=== PATIENT | male | born 1945 | race Caucasian/White ===

== ENCOUNTER 2019-04-25 14:01 | Observation (INO) ==
--- NOTE | 2019-04-25 14:05 | Emergency Department Note ---
ED Disposition Clinical Impression: SIRS (systemic inflammatory response syndrome), UTI (urinary tract infection), Failure to thrive in adult, Osteoarthritis of right hip, Right inguinal hernia Disposition: Admitted As Inpatient Condition on Discharge: Serious Time of Disposition: 17:01 - Critical Care Critical Care Time: No Attestation: On , the high probability of a clinically significant, sudden or life threatening deterioration of the following system(s) required my full and direct attention, intervention and personal management. The time I documented below is in addition to time spent performing reported procedures but includes the following listed in this critical care notation. Medical Decision Making - Medical Records Medical records reviewed: Yes: I reviewed the patient's medical records. - Robert Inquiry Pt receiving controlled substance: No Vital Signs: 04/25/19 14:09 04/25/19 15:21 04/25/19 15:46 Temperature 102.1 F H Temperature Source Oral Pulse Rate [Left Radial] 87 82 81 Respiratory Rate 20 Blood Pressure [Right Arm] 158/81 H 128/81 120/82 Blood Pressure Mean [Right Arm] 106 96 94 Blood Pressure Position [Right Arm] Sitting 02 Sat by Pulse Oximetry 91 L 99 100 Oxygen Delivery Method Room Air 04/25/19 15:55 04/25/19 16:49 Temperature 99.4 F Temperature Source Oral Pulse Rate [Left Radial] 78 Respiratory Rate Blood Pressure [Right Arm] 142/81 H Blood Pressure Mean [Right Arm] 101 Blood Pressure Position [Right Arm] Sitting 02 Sat by Pulse Oximetry Oxygen Delivery Method - Lab Data Lab results reviewed: Yes: I reviewed the patient's lab results. Lab Results 04/25/19 14:00: Lactate 2.0 04/25/19 14:00: WBC 16.1 H, RBC 3.88 L, Hgb 12.1 L, Hct 35.7 L, MCV 91.8, MCH 31.1, MCHC 33.8, RDW 12.9, Plt Count 191, MPV 8.6, Neut % (Auto) 86.9 H, Lymph % (Auto) 5.1 L, [place] % (Auto) 7.8, Eos % (Auto) 0.1, Baso % (Auto) 0.1, Neut # (Auto) 14.0 H, Lymph # (Auto) 0.8, [place] # (Auto) 1.3 H, Eos # (Auto) 0.0, Baso # (Auto) 0.0, Total Counted 100, Neutrophils % (Manual) 79 H, Lymphocytes % (Manual) 9 L, Monocytes % (Manual) 12 H, Platelet Estimate Normal, RBC Morphology Normal 04/25/19 14:00: Sodium 143, Potassium 3.5, Chloride 102, Carbon Dioxide 30, Anion Gap 14.5, BUN 30 H, Creatinine 1.68 H, Estimated Creat Clear 40, Estimated GFR 40 L, Est GFR ( Amer) 49 L, Glucose 125 H, Calcium 9.1, Magnesium 2.1, Total Bilirubin 1.7 H, AST 55 H, ALT 32, Alkaline Phosphatase 71, Troponin I < 0.02, C-Reactive Protein 21.9 H, Total Protein 7.8, Albumin 3.6, Globulin 4.2 H, Albumin/Globulin Ratio 0.9 L, TSH 0.55 04/25/19 14:00: Urine Color Dk yellow, Urine Appearance Clear, Urine pH 5.5, Ur Specific [place] 1.025, Urine Protein 2+, Urine Glucose (UA) Negative, Urine Ketones Negative, Urine Blood 3+, Urine Nitrate Negative, Urine Bilirubin Negative, Urine Urobilinogen 1.0, Ur Leukocyte Esterase Negative, Urine RBC 10- 20, Urine WBC 5-10, Ur Squamous Epith Cells Occasional, Urine Bacteria 2+ A 04/25/19 14:00: Stool Occult Blood Negative Result diagrams: 04/25/19 14:00 04/25/19 14:00 Orders (Tests/Meds): ED MEDICATIONS Discontinued Medications Generic Name Dose Route Start Last Admin Trade Name James PRN Reason Stop Dose Admin Acetaminophen 1,000 mg 04/25/19 14:17 04/25/19 14:21 Tylenol 500mg Tablet PO 04/25/19 14:18 1,000 mg ONCE ONE Administration Sodium Chloride 1,000 mls @ 999 mls/hr 04/25/19 14:30 04/25/19 14:21 Sod Chlor 0.9% 1000ml Bag IV 04/25/19 15:30 999 mls/hr .Q1H1M BROCK Administration Piperacillin Sod/Tazobactam 50 mls @ 100 mls/hr 04/25/19 15:00 04/25/19 15:06 Sod 3.375 gm/ Sodium Chloride IV 04/25/19 15:29 100 mls/hr ONCE ONE Administration Protocol ORDERS Category Date Time Status CT abdomen pelvis wo con Stat Cat Scan 04/25/19 14:[address] chest wo con Stat Cat Scan 04/25/19 14:12 Taken Prealbumin Stat Lab 04/25/19 14:00 Received Troponin I Q3H Lab 04/25/19 17:15 Ordered Troponin I Q3H Lab 04/25/19 20:15 Ordered Blood Culture Stat Micro 04/25/19 14:00 Received Urine Culture(cathed specimen) Stat Micro 04/25/19 14:00 Received EKG Request [ECG Request by /Nse] Stat Y 04/25/19 14:11 Ordered - ECG Data Tracing #1 I reviewed this ECG and interpreted as documented below: Normal sinus rhythm with a ventricular rate of 84 bpm. ECG initial impression date: 04/25/19 ECG initial impression time: 15:45 ECG normal with no acute: arrhythmias, ischemia, conduction abnormalities, chamber hypertrophy Normal Sinus Rhythm: Yes - Physician Consults Physician Consulted: Dr. Toure for unassigned service Time: 16:00 Reason -: Admission Additional Consult: Dr. Garcia for general surgery Time: 16:15 Reason -: Surgical Eval/Care, Other (Right inguinal hernia) Additional Consult: Dr. Beltran for orthopedic surgery Time: 16:20 Reason -: Surgical Eval/Care, Other (Severe right hip pathology.) General Adult HPI - General Chief complaint: PAIN Stated complaint: Pain Time Seen by Provider: 04/25/19 14:10 Mode of Arrival: EMS - History of Present Illness HPI narrative: Severely cachectic, unwashed, 73-year-old male in very dirty clothing with extremely long fingernails and very extremely long toenails and extremely poor dentition with actively rotting teeth and complete loss of over half of his teeth presents via EMS due to complaints of pain without trauma in his right hip. Patient is also complaining of urinary retention. This patient is clearly unable to care for himself in his current home environment. Patient has an obvious abdominal wall deformity and also a large right inguinal hernia with bowel down into the scrotum. Onset (ago): unknown Location: pelvis, right Radiation: non-radiation Severity: severe Quality: aching Consistency: constant Relieving factors: none Exacerbating factors: movement Associated symptoms: malaise, weakness Treatments prior to arrival: none - Related Data Home Medications Medication Instructions Recorded Confirmed No Known Home Medications 04/25/19 04/25/19 Allergies Allergy/AdvReac Type Severity Reaction Status Date / Time MORPHINE Allergy Unknown Uncoded 04/22/17 14:40 [facility] History - Hepatitis A Screen Attestation statement:: This patient has been screened for Hepatitis A risk factors. I have reviewed the patient's past medical history: Yes ROS Obtained: Yes Systems reviewed as appropriate & no additional complaints - Constitutional Constitutional: Reports fatigue, Reports fever(s), Reports malaise, Reports weakness - Eyes Eyes: Reports system reviewed and no additional complaints, except as docu - ENT Ears, Nose, Mouth, and Throat: Reports system reviewed and no additional complai nts, except as docu - Cardiovascular Cardiovascular: Reports system reviewed and no additional complaints, except as docu - Respiratory Respiratory: Yes system reviewed and no additional complaints, except as docu - Gastrointestinal Gastrointestingal: Reports: abdominal pain - Genitourinary Male Genitourinary: Reports decreased urination, Reports urinary hesitancy - Musculoskeletal Musculoskeletal: Reports joint pain, Reports decreased muscle mass, Reports joint stiffness, Reports joint swelling, Reports limited range of motion - Integumentary/Breasts Skin/Breast: Reports system reviewed and no additional complaints, except as docu - Neurologic Neurologic: Reports system reviewed and no additional complaints, except as docu - Endocrine Endocrine: Reports system reviewed and no additional complaints, except as docu - Hematologic/Lymphatic Henatologic/Lymphatic: Reports system reviewed and no additional complaints, except as docu - Allergic/Immunologic Allergic/Immunologic: Reports system reviewed and no additional complaints, except as docu Physical Exam - General General appearance: alert, in no apparent distress - Head Head exam: atraumatic, normocephalic, normal inspection - Eye Eye exam: Present: normal appearance, PERRL, EOMI - ENT ENT exam: Present: normal exam, normal oropharynx, mucous membranes moist, normal external ear exam - Expanded ENT Exam Teeth exam: Present: dental caries, other (Over half of the teeth are gone the other half are actively rotting.) - Neck Neck exam: Present: normal inspection, full ROM, trachea midline. Absent: meningismus, lymphadenopathy - Chest Chest inspection: Present: normal inspection, symmetric chest wall rise. Absent: tenderness - Respiratory Respiratory exam: Present: normal lung sounds bilaterally. Absent: respiratory distress - Cardiovascular Cardiovascular exam: Present: regular rate, normal rhythm, normal heart sounds. Absent: JVD - Abdominal Exam Abdominal exam: Present: soft, normal bowel sounds. Absent: distention, tenderness, guarding - exam: Present: scrotal swelling (Large right inguinal hernia with bowel in the scrotum.) - Expanded Exam exam: Present: other (Large smooth prostate per digital exam, good rectal tone.) - Extremities Exam Extremities exam: Present: full ROM (In arms bilaterally), tenderness (Right hip upon movement), other (Stiff joints and very little range of motion to the lower extremities bilaterally.). Absent: calf tenderness - Back Exam Back exam: Present: normal inspection. Absent: tenderness - Neurological Exam Neurological exam: Present: alert, oriented X3, CN II-XII intact. Absent: motor sensory deficit - Psychiatric Psychiatric exam: Present: normal affect, normal mood - Skin Skin exam: Present: warm, dry, intact, normal color
[2019-04-25 14:18] LABS: Basophils % 0.1 % (0.1-2.0); Eosinophils % 0.1 % (0.1-12.0); Hematocrit 35.7 % (42.0-52.0); Hemoglobin 12.1 g/dL (14.1-18.0); Lymphocytes # 0.8 K/mm3 (0.7-4.5); Lymphocytes % 5.1 % (10-50); Mean Corpuscular HGB Conc 33.8 g/dL (31.8-35.4); Mean Corpuscular Volume 91.8 fl (80-94); Mean Platelet Volume 8.6 fl (7.4-10.4); Monocytes # 1.3 K/mm3 (0.1-1.0); Monocytes % 7.8 % (1.7-9.3); Neutrophils % 86.9 % (37.0-80.0); Platelet Count 191 K/mm3 (142-424); Red Blood Count 3.88 M/mm3 (4.60-6.20); Red Cell Distribution Width 12.9 % (11.5-17.5); White Blood Count 16.1 K/mm3 (4.8-10.8)
[2019-04-25 14:29] LABS: Lymphocytes % 9 % (10-50); Monocytes % 12 % (2-9); Neutrophils % 79 % (42-76); RBC Morphology Normal; Total Cells Counted 100
[2019-04-25 14:36] LABS: Alanine Aminotransferase 32 U/L (12-78); Albumin Level 3.6 gm/dL (3.4-5.0); Albumin/Globulin Ratio 0.9 (1.1-1.8); Alkaline Phosphatase 71 U/L (46-116); Anion Gap 14.5 mEq/L (5-15); Aspartate Amino Transferase 55 U/L (15-37); Bilirubin,Total 1.7 mg/dL (0.2-1.0); Blood Urea Nitrogen 30 mg/dL (7-18); Calcium 9.1 mg/dL (8.5-10.1); Carbon Dioxide 30 mmol/L (21.0-32.0); Chloride 102 mmol/L (98-107); Globulin 4.2 gm/dl (1.3-3.2); Glucose 125 mg/dL (74-106); Sodium 143 mmol/L (136-145); Thyroid Stimulating Hormone 0.55 uIU/ml (0.358-3.740); Total Protein,Serum 7.8 gm/dL (6.4-8.2)
[2019-04-25 14:55] LABS: C-Reactive Protein 21.9 mg/dL (0.0-0.9)
[2019-04-26 06:07] LABS: Basophils % 0.1 % (0.1-2.0); Eosinophils % 0.1 % (0.1-12.0); Hematocrit 31.2 % (42.0-52.0); Lymphocytes # 0.4 K/mm3 (0.7-4.5); Lymphocytes % 3.5 % (10-50); Mean Corpuscular HGB Conc 33.5 g/dL (31.8-35.4); Mean Platelet Volume 8.9 fl (7.4-10.4); Monocytes # 0.5 K/mm3 (0.1-1.0); Neutrophils # 11.3 K/mm3 (1.8-7.8); Neutrophils % 92.3 % (37.0-80.0); Platelet Count 163 K/mm3 (142-424); Red Blood Count 3.32 M/mm3 (4.60-6.20); Red Cell Distribution Width 12.7 % (11.5-17.5); White Blood Count 12.3 K/mm3 (4.8-10.8)
[2019-04-26 06:11] LABS: Hemoglobin 10.6 g/dL (14.1-18.0)
[2019-04-26 06:20] LABS: INR 1.19 (0.9-1.1); Prothrombin Time 12.3 seconds (9.4-11.8)
[2019-04-26 06:47] LABS: Albumin Level 2.6 gm/dL (3.4-5.0); Albumin/Globulin Ratio 0.7 (1.1-1.8); Bilirubin,Total 1.4 mg/dL (0.2-1.0); Calcium 8.3 mg/dL (8.5-10.1); Chol/HDL Ratio 1.5 (1-3.5); Globulin 3.7 gm/dl (1.3-3.2); Total Protein,Serum 6.3 gm/dL (6.4-8.2)
--- NOTE | 2019-04-26 06:48 | Consult Report ---
*Admission Date: 04/25/19 *Reason for consult:: Inguinal hernia *History of present illness: Patient is a 73-year-old male who has reportedly not had any recent ongoing medical care who was brought to the emergency department yesterday evening with complaints of right hip pain. He has an apparent prior history of significant abdominal surgery at [facility] approximately 10 years ago. The exact details are unknown. However it appears as though he had been managed with an open abdomen ultimately with skin grafting. He was noted to have a large right inguinal hernia. Imaging revealed severe osteoarthritis of the right hip. He was admitted for inpatient management and surgical consultation was obtained for the hernia. Review of Systems - Review of Systems Review of systems:: pertinent systems reviewed and negative unless documented below - *Neurologic Reports weakness [facility] History Medical History: Denies:: Diabetes Mellitus Type 1 *Have you ever received a pneumonia vaccine?: No *Have you received a flu vaccine this season?: No - *Social History Educational Level: Completed Grade School Smoking Status: Current some day smoker Tobacco Type: pipe # Packs/Day (cigarettes): 0 Alcohol Intake: never *Occupational Status:: retired Household Members: family *Travel in the last 8 weeks: None Family Hx:: Cancer, Diabetes, Heart Attack Meds Home Medications Medication Instructions Recorded Confirmed Type No Known Home Medications 04/25/19 04/25/19 History Allergies Allergy/AdvReac Type Severity Reaction Status Date / Time MORPHINE Allergy Unknown Uncoded 04/22/17 14:40 Exam Vital signs and Labs for Last 24 Hours: Temp Pulse Resp BP Pulse Ox 98.5 F 73 19 125/69 99 04/26/19 04:00 04/26/19 04:00 04/26/19 04:00 04/26/19 04:00 04/26/19 04:00 Laboratory Results - last 24 hr 04/25/19 14:00: Lactate 2.0 04/25/19 14:00: WBC 16.1 H, RBC 3.88 L, Hgb 12.1 L, Hct 35.7 L, MCV 91.8, MCH 31.1, MCHC 33.8, RDW 12.9, Plt Count 191, MPV 8.6, Neut % (Auto) 86.9 H, Lymph % (Auto) 5.1 L, [place] % (Auto) 7.8, Eos % (Auto) 0.1, Baso % (Auto) 0.1, Neut # (Auto) 14.0 H, Lymph # (Auto) 0.8, [place] # (Auto) 1.3 H, Eos # (Auto) 0.0, Baso # (Auto) 0.0, Total Counted 100, Neutrophils % (Manual) 79 H, Lymphocytes % (Manual) 9 L, Monocytes % (Manual) 12 H, Platelet Estimate Normal, RBC Morphology Normal 04/25/19 14:00: Sodium 143, Potassium 3.5, Chloride 102, Carbon Dioxide 30, Ani on Gap 14.5, BUN 30 H, Creatinine 1.68 H, Estimated Creat Clear 40, Estimated GFR 40 L, Est GFR ( Amer) 49 L, Glucose 125 H, Calcium 9.1, Magnesium 2.1, Total Bilirubin 1.7 H, AST 55 H, ALT 32, Alkaline Phosphatase 71, Troponin I < 0.02, C-Reactive Protein 21.9 H, Total Protein 7.8, Albumin 3.6, Globulin 4.2 H, Albumin/Globulin Ratio 0.9 L, TSH 0.55 04/25/19 14:00: Urine Color Dk yellow, Urine Appearance Clear, Urine pH 5.5, Ur Specific [place] 1.025, Urine Protein 2+, Urine Glucose (UA) Negative, Urine Ketones Negative, Urine Blood 3+, Urine Nitrate Negative, Urine Bilirubin Negative, Urine Urobilinogen 1.0, Ur Leukocyte Esterase Negative, Urine RBC 10- 20, Urine WBC 5-10, Ur Squamous Epith Cells Occasional, Urine Bacteria 2+ A 04/25/19 14:00: Stool Occult Blood Negative 04/26/19 05:50: WBC 12.3 H, RBC 3.32 L, Hgb 10.6 L D, Hct 31.2 L, MCV 94.0, MCH 31.5 H, MCHC 33.5, RDW 12.7, Plt Count 163, MPV 8.9, Neut % (Auto) 92.3 H, Lymph % (Auto) 3.5 L, [place] % (Auto) 4.0, Eos % (Auto) 0.1, Baso % (Auto) 0.1, Neut # (Auto) 11.3 H, Lymph # (Auto) 0.4 L, [place] # (Auto) 0.5, Eos # (Auto) 0.0, Baso # (Auto) 0.0 04/26/19 05:50: PT 12.3 H, INR 1.19 H I & O for Last 24 hours: Intake & Output 04/23/19 04/24/19 04/25/19 04/26/19 11:59 11:59 11:59 11:59 Intake Total 1506 / 1506 Output Total 775 / 775 Balance 731 / 731 Weight 99 lb 5 oz Narrative: Focal examination of the abdomen reveals large chronic abdominal wall defect consistent with prior management of open abdomen with skin grafting. His abdomen is soft. There are visible loops of small bowel. Examination of the right inguinal area reveals a moderate sized right inguinal hernia. This is fully reducible albeit mildly uncomfortable to the patient. Results - Labs 04/26/19 05:50 04/25/19 14:00 Laboratory Results - last 24 hr 04/25/19 14:00: Lactate 2.0 04/25/19 14:00: WBC 16.1 H, RBC 3.88 L, Hgb 12.1 L, Hct 35.7 L, MCV 91.8, MCH 31.1, MCHC 33.8, RDW 12.9, Plt Count 191, MPV 8.6, Neut % (Auto) 86.9 H, Lymph % (Auto) 5.1 L, [place] % (Auto) 7.8, Eos % (Auto) 0.1, Baso % (Auto) 0.1, Neut # (Auto) 14.0 H, Lymph # (Auto) 0.8, [place] # (Auto) 1.3 H, Eos # (Auto) 0.0, Baso # (Auto) 0.0, Total Counted 100, Neutrophils % (Manual) 79 H, Lymphocytes % ( Manual) 9 L, Monocytes % (Manual) 12 H, Platelet Estimate Normal, RBC Morphology Normal 04/25/19 14:00: Sodium 143, Potassium 3.5, Chloride 102, Carbon Dioxide 30, Anion Gap 14.5, BUN 30 H, Creatinine 1.68 H, Estimated Creat Clear 40, Estimated GFR 40 L, Est GFR ( Amer) 49 L, Glucose 125 H, Calcium 9.1, Magnesium 2.1, Total Bilirubin 1.7 H, AST 55 H, ALT 32, Alkaline Phosphatase 71, Troponin I < 0.02, C-Reactive Protein 21.9 H, Total Protein 7.8, Albumin 3.6, Globulin 4.2 H, Albumin/Globulin Ratio 0.9 L, TSH 0.55 04/25/19 14:00: Urine Color Dk yellow, Urine Appearance Clear, Urine pH 5.5, Ur Specific [place] 1.025, Urine Protein 2+, Urine Glucose (UA) Negative, Urine Ketones Negative, Urine Blood 3+, Urine Nitrate Negative, Urine Bilirubin Negati ve, Urine Urobilinogen 1.0, Ur Leukocyte Esterase Negative, Urine RBC 10-20, Urine WBC 5-10, Ur Squamous Epith Cells Occasional, Urine Bacteria 2+ A 04/25/19 14:00: Stool Occult Blood Negative 04/26/19 05:50: WBC 12.3 H, RBC 3.32 L, Hgb 10.6 L D, Hct 31.2 L, MCV 94.0, MCH 31.5 H, MCHC 33.5, RDW 12.7, Plt Count 163, MPV 8.9, Neut % (Auto) 92.3 H, Lymph % (Auto) 3.5 L, [place] % (Auto) 4.0, Eos % (Auto) 0.1, Baso % (Auto) 0.1, Neut # (Auto) 11.3 H, Lymph # (Auto) 0.4 L, [place] # (Auto) 0.5, Eos # (Auto) 0.0, Baso # (Auto) 0.0 04/26/19 05:50: PT 12.3 H, INR 1.19 H Assessment and Plan - Assessment and plan all Dx Assessment and Plan for all problems:: Patient has a moderate reducible right inguinal hernia. No indications for urg ent surgical intervention at this time.
--- NOTE | 2019-04-26 07:25 | Pharmacy Consult Notes ---
[facility] Pharmacy VTE Monitoring - Patient Demographics Admission date: 04/25/19 Report Date: 04/26/19 Time: 07:25 Allergies/Adverse Reactions: Patient Allergies MORPHINE Allergy (Unknown, Uncoded 04/22/17 14:40) Height: 1.73 m Weight: 45.047 kg Patient Problems: Current Active Problems SIRS (systemic inflammatory response syndrome) (Acute) UTI (urinary tract infection) (Acute) Failure to thrive in adult (Acute) Osteoarthritis of right hip (Acute) Right inguinal hernia (Acute) - VTE Risk Labs: VTE Related Lab Results Hgb 10.6 g/dL (14.1-18.0) L D 04/26/19 05:50 Hct 31.2 % (42.0-52.0) L 04/26/19 05:50 Plt Count 163 K/mm3 (142-424) 04/26/19 05:50 PT 12.3 seconds (9.4-11.8) H 04/26/19 05:50 INR 1.19 (0.9-1.1) H 04/26/19 05:50 BUN 29 mg/dL (7-18) H 04/26/19 05:50 Creatinine 1.50 mg/dL (0.70-1.30) H 04/26/19 05:50 Estimated Creat Clear 28 mL/min (50-200) 04/26/19 05:50 Was VTE Risk Assessment Performed: Yes VTE Score: 5 VTE Risk Level: Low Risk Clinical Trial Participant: No - Prophylaxis VTE Prophylaxis Ordered?: Yes Types of VTE Prophylaxis: TEDS Knee High
--- NOTE | 2019-04-26 09:10 | History & Physical Report ---
*Admission Date: 04/25/19 *Chief complaint: Pain with ambulation, functional decline *History of present illness: 73-year-old white with essentially negative past medical history except for an episode of multiple abdominal surgeries at [facility] several years ago because "my intestine was wrapped around my gallbladder" who presented to the emergency department because he was unable to walk. In the emergency department he was found to be in extensive pain, and had not been to see medical attention since Dr. Munoz . He was found to have unkempt personal hygiene, oral hygiene and exceedingly long toenails that had not been trimmed in several years. Was also found to have a urinary tract infection, leukocytosis, acute kidney injury and right sided inguinal hernia. No medical records are available so comparison is somewhat difficult. Was also found to have impacted severe arthritis of the right hip consistent with avascular necrosis. Patient was admitted to hospital for further evaluation and multiple consultations from surgery specialties. [facility] History I have reviewed the patient's past medical history: Yes Medical History: Denies:: Diabetes Mellitus Type 1 *Have you ever received a pneumonia vaccine?: No *Have you received a flu vaccine this season?: No - *Social History Educational Level: Completed Grade School Smoking Status: Current some day smoker Tobacco Type: pipe # Packs/Day (cigarettes): 0 Alcohol Intake: never *Occupational Status:: retired Household Members: family *Travel in the last 8 weeks: None Family Hx:: Cancer, Diabetes, Heart Attack Review of Systems - Review of Systems Review of systems:: pertinent systems reviewed and negative unless documented below Patient reports no cardiac or pulmonary issues. No GI issues. Multiple orthopedic complaints, mostly in the right hip with inability to flex the hip. Otherwise denies pains or aches. Please see HPI for details - *Neurologic Reports weakness Meds Home Medications Medication Instructions Recorded Confirmed Type No Known Home Medications 04/25/19 04/25/19 History Allergies Allergy/AdvReac Type Severity Reaction Status Date / Time morphine Allergy Unknown Verified 04/26/19 07:43 allergy reaction Exam Vital signs and Labs for Last 24 Hours: Temp Pulse Resp BP Pulse Ox 98.3 F 76 18 113/56 L 100 04/26/19 07:56 04/26/19 07:56 04/26/19 07:56 04/26/19 07:56 04/26/19 07:56 Laboratory Results - last 24 hr 04/25/19 14:00: Lactate 2.0 04/25/19 14:00: WBC 16.1 H, RBC 3.88 L, Hgb 12.1 L, Hct 35.7 L, MCV 91.8, MCH 31.1, MCHC 33.8, RDW 12.9, Plt Count 191, MPV 8.6, Neut % (Auto) 86.9 H, Lymph % (Auto) 5.1 L, [place] % (Auto) 7.8, Eos % (Auto) 0.1, Baso % (Auto) 0.1, Neut # (Auto) 14.0 H, Lymph # (Auto) 0.8, [place] # (Auto) 1.3 H, Eos # (Auto) 0.0, Baso # (Auto) 0.0, Total Counted 100, Neutrophils % (Manual) 79 H, Lymphocytes % (Manual) 9 L, Monocytes % (Manual) 12 H, Platelet Estimate Normal, RBC Morphology Normal 04/25/19 14:00: Sodium 143, Potassium 3.5, Chloride 102, Carbon Dioxide 30, Anion Gap 14.5, BUN 30 H, Creatinine 1.68 H, Estimated Creat Clear 40, Estimated GFR 40 L, Est GFR ( Amer) 49 L, Glucose 125 H, Calcium 9.1, Magnesium 2.1, Total Bilirubin 1.7 H, AST 55 H, ALT 32, Alkaline Phosphatase 71, Troponin I < 0.02, C-Reactive Protein 21.9 H, Total Protein 7.8, Albumin 3.6, Globulin 4.2 H, Albumin/Globulin Ratio 0.9 L, TSH 0.55 04/25/19 14:00: Urine Color Dk yellow, Urine Appearance Clear, Urine pH 5.5, Ur Specific [place] 1.025, Urine Protein 2+, Urine Glucose (UA) Negative, Urine Ketones Negative, Urine Blood 3+, Urine Nitrate Negative, Urine Bilirubin Negative, Urine Urobilinogen 1.0, Ur Leukocyte Esterase Negative, Urine RBC 10-20, Urine WBC 5-10, Ur Squamous Epith Cells Occasional, Urine Bacteria 2+ A 04/25/19 14:00: Stool Occult Blood Negative 04/26/19 05:50: WBC 12.3 H, RBC 3.32 L, Hgb 10.6 L D, Hct 31.2 L, MCV 94.0, MCH 31.5 H, MCHC 33.5, RDW 12.7, Plt Count 163, MPV 8.9, Neut % (Auto) 92.3 H, Lymph % (Auto) 3.5 L, [place] % (Auto) 4.0, Eos % (Auto) 0.1, Baso % (Auto) 0.1, Neut # (Auto) 11.3 H, Lymph # (Auto) 0.4 L, [place] # (Auto) 0.5, Eos # (Auto) 0.0, Baso # (Auto) 0.0 04/26/19 05:50: PT 12.3 H, INR 1.19 H 04/26/19 05:50: Sodium 141, Potassium 4.0, Chloride 106, Carbon Dioxide 26, Anion Gap 13.0, BUN 29 H, Creatinine 1.50 H, Estimated Creat Clear 28, Estimated GFR 46 L, Est GFR ( Amer) 56 L, Glucose 122 H, Calcium 8.3 L, Phosphorus 2.0 L, Magnesium 1.9, Total Bilirubin 1.4 H, AST 43 H, ALT 26, Alkaline Phosphatase 51, Total Protein 6.3 L, Albumin 2.6 L D, Globulin 3.7 H, Albumin/Globulin Ratio 0.7 L, Triglycerides 31, Cholesterol 110 L, LDL Cholesterol 29, VLDL Cholesterol 6, HDL Cholesterol 75 H, Cholesterol/HDL Ratio 1.5 I & O for Last 24 hours: Intake & Output 04/23/19 04/24/19 04/25/19 04/26/19 11:59 11:59 11:59 11:59 Intake Total 1506 / 1506 Output Total 775 / 775 Balance 731 / 731 Weight 99 lb 5 oz Narrative: Patient is pleasant, talkative, seems to have a degree of intellectual disability Oropharynx clear but with multiple rotting teeth in various stages of disrepair. Patient appears cachectic with severe protein calorie malnutrition. Abdomen is scaphoid, significant scarring with evidence of abdominal wall defect from his multiple surgeries. Right inguinal hernia that is reducible noted. Adam catheter is draining dark yellow urine. Scrotal edema noted. Extremities are warm and well-perfused. Patient has significant pain with any movement of the right hip, but the hip is not foreshortened or rotated. Toenails are extremely long, his great toenails are approximately 5 inches long. Patient's upper extremities are dirty but otherwise unremarkable. Anterior lung kan are clear, heart rate regular. No JVD. Neurologic exam is nonfocal except for some global weakness Assessment and Plan (1) Severe protein-calorie malnutrition Current visit: Yes Status: Acute Category: Medical Code(s): E43 - Unspecified severe protein-calorie malnutrition Complicating factor of his admission. (2) Osteoarthritis of right hip Current visit: Yes Status: Acute Category: Medical Code(s): M16.11 - Unilateral primary osteoarthritis, right hip Significant disease in the hip, will probably need joint replacement or some type of evaluation. Orthopedic consult pending (3) Right inguinal hernia Current visit: Yes Status: Acute Category: Medical Code(s): K40.90 - Unilateral inguinal hernia, without obstruction or gangrene, not specified as recurrent Surgery consult reviewed and appreciated (4) UTI (urinary tract infection) Current visit: Yes Status: Acute Category: Medical Code(s): N39.0 - Urinary tract infection, site not specified Agree with antibiotics. Cultures pending
[2019-04-26 12:13] LABS: Lymphocytes % 3 % (10-50); Monocytes % 7 % (2-9); Neutrophils % 89 % (42-76); RBC Morphology Normal; Total Cells Counted 100
--- NOTE | 2019-04-26 13:58 | Consult Report ---
*Admission Date: 04/26/19 <Belen Cabrera 04/26/19 14:36> *Reason for consult:: Podiatry consult, nail trim <Belen Cabrera 04/26/19 14:36> *History of present illness: Patient is a 73-year-old male who has reportedly not had any recent ongoing medical care who was brought to the emergency department yesterday evening with complaints of right hip pain. The patient states he lives with his Brother that is 71 years old and that he is not . The patient presents today with onychogryphosis that is causing him pain due to the extensive length and some of the nails are incurvated inward and pressing into the skin under the nails. This is making wearing shoes very di fficult. Patient would like his nails trimmed today. <Belen Cabrera 04/26/19 14:36> Review of Systems - Constitutional Reports weight loss <Belen Cabrera 04/26/19 14:36> - *Cardiovascular Denies chest pain <Belen Cabrera 04/26/19 14:36> - *Respiratory Denies shortness of breath <Belen Cabrera 04/26/19 14:36> - *Musculoskeletal Comments: Patient states that his hip hurts today, states he has arthritis. <Belen Cabrera 04/26/19 14:36> - *Neurologic Reports restless legs, Reports weakness <Belen Cabrera 04/26/19 14:36> - Psychiatric Denies anxiety <Belen Cabrera 04/26/19 14:36> [facility] History I have reviewed the patient's past medical history: Yes <Belen Cabrera 04/26/19 14:36> Medical History: Denies:: Diabetes Mellitus Type 1 <Belen Cabrera 04/26/19 14:36> *Have you ever received a pneumonia vaccine?: No <Belen Cabrera 04/26/19 14:36> *Have you received a flu vaccine this season?: No <Belen Cabrera 04/26/19 14:36> - *Social History Educational Level: Completed Grade School <Belen Cabrera 04/26/19 14:36> Smoking Status: Current some day smoker <Belen Cabrera 04/26/19 14:36> Tobacco Type: pipe <Belen Cabrera 04/26/19 14:36> # Packs/Day (cigarettes): 0 <Belen Cabrera 04/26/19 14:36> Alcohol Intake: never <Belen Cabrera 04/26/19 14:36> *Occupational Status:: retired <Belen Cabrera 04/26/19 14:36> Household Members: family <Belen Cabrera 04/26/19 14:36> *Travel in the last 8 weeks: None <Belen Cabrera 04/26/19 14:36> Family Hx:: Cancer, Diabetes, Heart Attack <Belen Cabrera 04/26/19 14:36> Meds Home Medications Medication Instructions Recorded Confirmed Type No Known Home Medications 04/25/19 04/25/19 History <Manju Alford - 04/26/19 16:42> Allergies Allergy/AdvReac Type Severity Reaction Status Date / Time morphine Allergy Unknown Verified 04/26/19 07:43 allergy reaction <Manju Alford - 04/26/19 16:42> Exam Vital signs and Labs for Last 24 Hours: Temp Pulse Resp BP Pulse Ox 98.9 F 73 18 127/78 99 04/26/19 15:32 04/26/19 15:32 04/26/19 15:32 04/26/19 15:32 04/26/19 15:32 Laboratory Results - last 24 hr 04/26/19 05:50: WBC 12.3 H, RBC 3.32 L, Hgb 10.6 L D, Hct 31.2 L, MCV 94.0, MCH 31.5 H, MCHC 33.5, RDW 12.7, Plt Count 163, MPV 8.9, Neut % (Auto) 92.3 H, Lymph % (Auto) 3.5 L, [place] % (Auto) 4.0, Eos % (Auto) 0.1, Baso % (Auto) 0.1, Neut # (Auto) 11.3 H, Lymph # (Auto) 0.4 L, [place] # (Auto) 0.5, Eos # (Auto) 0.0, Baso # (Auto) 0.0, Total Counted 100, Neutrophils % (Manual) 89 H, Band Neutrophils % 1.0, Lymphocytes % (Manual) 3 L, Monocytes % (Manual) 7, Platelet Estimate Normal, RBC Morphology Normal 04/26/19 05:50: PT 12.3 H, INR 1.19 H 04/26/19 05:50: Sodium 141, Potassium 4.0, Chloride 106, Carbon Dioxide 26, Anion Gap 13.0, BUN 29 H, Creatinine 1.50 H, Estimated Creat Clear 28, Estimated GFR 46 L, Est GFR ( Amer) 56 L, Glucose 122 H, Calcium 8.3 L, Phosphorus 2.0 L, Magnesium 1.9, Total Bilirubin 1.4 H, AST 43 H, ALT 26, Alkaline Phosphatase 51, Total Protein 6.3 L, Albumin 2.6 L D, Globulin 3.7 H, Albumin/Globulin Ratio 0.7 L, Triglycerides 31, Cholesterol 110 L, LDL Cholesterol 29, VLDL Cholesterol 6, HDL Cholesterol 75 H, Cholesterol/HDL Ratio 1.5 <Manju Alford - 04/26/19 16:42> Temp Pulse Resp BP Pulse Ox 98.3 F 76 18 113/56 L 100 04/26/19 07:56 04/26/19 07:56 04/26/19 07:56 04/26/19 07:56 04/26/19 07:56 Laboratory Results - last 24 hr 04/25/19 14:00: Lactate 2.0 04/25/19 14:00: WBC 16.1 H, RBC 3.88 L, Hgb 12.1 L, Hct 35.7 L, MCV 91.8, MCH 31.1, MCHC 33.8, RDW 12.9, Plt Count 191, MPV 8.6, Neut % (Auto) 86.9 H, Lymph % (Auto) 5.1 L, [place] % (Auto) 7.8, Eos % (Auto) 0.1, Baso % (Auto) 0.1, Neut # (Auto) 14.0 H, Lymph # (Auto) 0.8, [place] # (Auto) 1.3 H, Eos # (Auto) 0.0, Baso # (Auto) 0.0, Total Counted 100, Neutrophils % (Manual) 79 H, Lymphocytes % (Manual) 9 L, Monocytes % (Manual) 12 H, Platelet Estimate Normal, RBC Morphology Normal 04/25/19 14:00: Sodium 143, Potassium 3.5, Chloride 102, Carbon Dioxide 30, Anion Gap 14.5, BUN 30 H, Creatinine 1.68 H, Estimated Creat Clear 40, Estimated GFR 40 L, Est GFR ( Amer) 49 L, Glucose 125 H, Calcium 9.1, Magnesium 2.1, Total Bilirubin 1.7 H, AST 55 H, ALT 32, Alkaline Phosphatase 71, Troponin I < 0.02, C-Reactive Protein 21.9 H, Total Protein 7.8, Albumin 3.6, Globulin 4.2 H, Albumin/Globulin Ratio 0.9 L, TSH 0.55 04/25/19 14:00: Urine Color Dk yellow, Urine Appearance Clear, Urine pH 5.5, Ur Specific [place] 1.025, Urine Protein 2+, Urine Glucose (UA) Negative, Urine Ketones Negative, Urine Blood 3+, Urine Nitrate Negative, Urine Bilirubin Negative, Urine Urobilinogen 1.0, Ur Leukocyte Esterase Negative, Urine RBC 10- 20, Urine WBC 5-10, Ur Squamous Epith Cells Occasional, Urine Bacteria 2+ A 04/25/19 14:00: Stool Occult Blood Negative 04/26/19 05:50: WBC 12.3 H, RBC 3.32 L, Hgb 10.6 L D, Hct 31.2 L, MCV 94.0, MCH 31.5 H, MCHC 33.5, RDW 12.7, Plt Count 163, MPV 8.9, Neut % (Auto) 92.3 H, Lymph % (Auto) 3.5 L, [place] % (Auto) 4.0, Eos % (Auto) 0.1, Baso % (Auto) 0.1, Neut # (Auto) 11.3 H, Lymph # (Auto) 0.4 L, [place] # (Auto) 0.5, Eos # (Auto) 0.0, Baso # (Auto) 0.0, Total Counted 100, Neutrophils % (Manual) 89 H, Band Neutrophils % 1.0, Lymphocytes % (Manual) 3 L, Monocytes % (Manual) 7, Platelet Estimate Normal, RBC Morphology Normal 04/26/19 05:50: PT 12.3 H, INR 1.19 H 04/26/19 05:50: Sodium 141, Potassium 4.0, Chloride 106, Carbon Dioxide 26, Anion Gap 13.0, BUN 29 H, Creatinine 1.50 H, Estimated Creat Clear 28, Estimated GFR 46 L, Est GFR ( Amer) 56 L, Glucose 122 H, Calcium 8.3 L, Phosphorus 2.0 L, Magnesium 1.9, Total Bilirubin 1.4 H, AST 43 H, ALT 26, Alkaline Phosphatase 51, Total Protein 6.3 L, Albumin 2.6 L D, Globulin 3.7 H, Album in/Globulin Ratio 0.7 L, Triglycerides 31, Cholesterol 110 L, LDL Cholesterol 29, VLDL Cholesterol 6, HDL Cholesterol 75 H, Cholesterol/HDL Ratio 1.5 <Belen Cabrera - 04/26/19 14:36> I & O for Last 24 hours: Intake & Output 04/24/19 04/25/19 04/26/19 04/27/19 11:59 11:59 11:59 11:59 Intake Total 1506 / 1506 Output Total 775 / 775 125 / 125 Balance 731 / 731 -125 / -125 Weight 99 lb 5 oz 99 lb 4.986 oz <Manju Alford - 04/26/19 16:42> Intake & Output 04/23/19 04/24/19 04/25/19 04/26/19 23:59 23:59 23:59 23:59 Intake Total 240 / 240 1266 / 1266 Output Total 550 / 550 225 / 225 Balance -310 / -310 1041 / 1041 Weight 96 lb 4 oz 99 lb 5 oz <Belen Cabrera - 04/26/19 14:36> Microbiology Reports for the Last 24 Hours: Microbiology 04/25/19 14:00 Urine,Catheterized Urine Culture - Preliminary NO GROWTH AFTER 24 HOURS <Manju Alford - 04/26/19 16:42> - *Routine HEENT Exam Head: Present: normocephalic <Belen Cabrera - 04/26/19 14:36> Eye: Present: PERRL <Belen Cabrera - 04/26/19 14:36> ENT: Present: mucous membranes moist <Belen Cabrera 04/26/19 14:36> - *Routine Neck Exam Present: full ROM. Absent: JVD <Belen Cabrera 04/26/19 14:36> - *Routine Respiratory Exam Absent: respiratory distress <Belen Cabrera 04/26/19 14:36> - *Routine Cardiovascular Exam Present: RRR <Belen Cabrera 04/26/19 14:36> - *Routine Abdominal Exam Absent: distended <Belen Cabrera 04/26/19 14:36> - *Routine Rectal Exam Patient deferred: visual exam <Belen Cabrera 04/26/19 14:36> - *Routine Extremities Exam Present: pulses intact, normal capillary refill. Absent: edema, calf tenderness <Belen Cabrera 04/26/19 14:36> - *Routine Skin Exam Present: dry, lesions <Belen Cabrera 04/26/19 14:36> Comments: Calluses noted to Right sub hallux, Right medial hallux, Left medial hallux, Left sub hallux, Left heel. Left 2nd tip of toe. <Belen Cabrera 04/26/19 14:36> - *Routine Neurological Exam Present: oriented X3, normal speech <Belen Cabrera 04/26/19 14:36> - Detailed Lower Extremity Exam Top foot image: 1 - Gryphosis on nails 1-5 to the right foot, thick and yellowish brown discolored nails. Nails crumbled when trimmed. 2 - Gryphosis on nails 1-5 to the left foot, thick and yellowish brown discolored nails. Nails crumbled when trimmed. The right great toenail had some skin under the nail and when trimmed it bled slightly. Neosporin ointment and a bandaid was then placed over the nail. <Belen Cabrera - 04/26/19 14:36> Bottom foot image: 1 - Callus to the right medial border,trimmed with a #15 blade, with no underlying ulcers. 2 - Callus to the right sub met ,trimmed with a #15 blade, with no underlying ulcers. 3 - Callus to the left medial border,trimmed with a #15 blade, with no underlying ulcers. 4 - Callus to the left sub met, trimmed with a #15 blade, with no underlying ulcers. 5 - Callus to the left heel ,trimmed with a #15 blade, with no underlying ulcers. 6 - Left 2nd toe had a callus removed after the nail was trimmed, it was pressing inward on his skin. Trimmed with a #15 blade, with no underlying ulcers. <Belen Cabrera - 04/26/19 14:36> Comments: Large dorsal medial eminence noted bilaterally. Valgus rotation noted to the toes. Decreased dorsiflexion bilaterally. No pain to the sesamoid apparatus and with stretch of the lateral capsule. Stable first metatarsal cuneiform joint range of motion, non-hypermobile first ray. 2-5th digits have rigid PIPJ contracture bilaterally. Adductovarus rotation noted to the fifth digit bilaterally. <Manju Alford - 04/26/19 16:41> Results - Labs Result Diagrams: 04/26/19 05:50 04/26/19 05:50 <Manju Alford - 04/26/19 16:42> Labs: Abnormal lab results 04/26/19 04/26/19 04/26/19 Range/Units 05:50 05:50 05:50 WBC 12.3 H (4.8-10.8) K/mm3 RBC 3.32 L (4.60-6.20) M/mm3 Hgb 10.6 L D (14.1-18.0) g/dL Hct 31.2 L (42.0-52.0) % MCH 31.5 H (27.0-31.2) pg Neut % (Auto) 92.3 H (37.0-80.0) % Lymph % (Auto) 3.5 L (10-50) % Neut # (Auto) 11.3 H (1.8-7.8) K/mm3 Lymph # (Auto) 0.4 L (0.7-4.5) K/mm3 Neutrophils % (Manual) 89 H (42-76) % Lymphocytes % (Manual) 3 L (10-50) % PT 12.3 H (9.4-11.8) seconds INR 1.19 H (0.9-1.1) BUN 29 H (7-18) mg/dL Creatinine 1.50 H (0.70-1.30) mg/dL Estimated GFR 46 L (>60) ml/min Est GFR ( Amer) 56 L (>60) ML/MIN Glucose 122 H (74-106) mg/dL Calcium 8.3 L (8.5-10.1) mg/dL Phosphorus 2.0 L (2.4-4.9) mg/dL Total Bilirubin 1.4 H (0.2-1.0) mg/dL AST 43 H (15-37) U/L Total Protein 6.3 L (6.4-8.2) gm/dL Albumin 2.6 L D (3.4-5.0) gm/dL Globulin 3.7 H (1.3-3.2) gm/dl Albumin/Globulin Ratio 0.7 L (1.1-1.8) Cholesterol 110 L (140-200) mg/dL HDL Cholesterol 75 H (27-67) mg/dL H & H 04/25/19 04/26/19 Range/Units 14:00 05:50 Hgb 12.1 L 10.6 L D (14.1-18.0) g/dL Hct 35.7 L 31.2 L (42.0-52.0) % Coagulation 04/26/19 Range/Units 05:50 INR 1.19 H (0.9-1.1) All other labs normal. <Manju Alford - 04/26/19 16:42> Abnormal lab results 04/25/19 04/25/19 04/25/19 Range/Units 14:00 14:00 14:00 WBC 16.1 H (4.8-10.8) K/mm3 RBC 3.88 L (4.60-6.20) M/mm3 Hgb 12.1 L (14.1-18.0) g/dL Hct 35.7 L (42.0-52.0) % MCH (27.0-31.2) pg Neut % (Auto) 86.9 H (37.0-80.0) % Lymph % (Auto) 5.1 L (10-50) % Neut # (Auto) 14.0 H (1.8-7.8) K/mm3 Lymph # (Auto) (0.7-4.5) K/mm3 [place] # (Auto) 1.3 H (0.1-1.0) K/mm3 Neutrophils % (Manual) 79 H (42-76) % Lymphocytes % (Manual) 9 L (10-50) % Monocytes % (Manual) 12 H (2-9) % PT (9.4-11.8) seconds INR (0.9-1.1) BUN 30 H (7-18) mg/dL Creatinine 1.68 H (0.70-1.30) mg/dL Estimated GFR 40 L (>60) ml/min Est GFR ( Amer) 49 L (>60) ML/MIN Glucose 125 H (74-106) mg/dL Calcium (8.5-10.1) mg/dL Phosphorus (2.4-4.9) mg/dL Total Bilirubin 1.7 H (0.2-1.0) mg/dL AST 55 H (15-37) U/L C-Reactive Protein 21.9 H (0.0-0.9) mg/dL Total Protein (6.4-8.2) gm/dL Albumin (3.4-5.0) gm/dL Globulin 4.2 H (1.3-3.2) gm/dl Albumin/Globulin Ratio 0.9 L (1.1-1.8) Cholesterol (140-200) mg/dL HDL Cholesterol (27-67) mg/dL Urine Bacteria 2+ A (None) /lpf 04/26/19 04/26/19 04/26/19 Range/Units 05:50 05:50 05:50 WBC 12.3 H (4.8-10.8) K/mm3 RBC 3.32 L (4.60-6.20) M/mm3 Hgb 10.6 L D (14.1-18.0) g/dL Hct 31.2 L (42.0-52.0) % MCH 31.5 H (27.0-31.2) pg Neut % (Auto) 92.3 H (37.0-80.0) % Lymph % (Auto) 3.5 L (10-50) % Neut # (Auto) 11.3 H (1.8-7.8) K/mm3 Lymph # (Auto) 0.4 L (0.7-4.5) K/mm3 [place] # (Auto) (0.1-1.0) K/mm3 Neutrophils % (Manual) 89 H (42-76) % Lymphocytes % (Manual) 3 L (10-50) % Monocytes % (Manual) (2-9) % PT 12.3 H (9.4-11.8) seconds INR 1.19 H (0.9-1.1) BUN 29 H (7-18) mg/dL Creatinine 1.50 H (0.70-1.30) mg/dL Estimated GFR 46 L (>60) ml/min Est GFR ( Amer) 56 L (>60) ML/MIN Glucose 122 H (74-106) mg/dL Calcium 8.3 L (8.5-10.1) mg/dL Phosphorus 2.0 L (2.4-4.9) mg/dL Total Bilirubin 1.4 H (0.2-1.0) mg/dL AST 43 H (15-37) U/L C-Reactive Protein (0.0-0.9) mg/dL Total Protein 6.3 L (6.4-8.2) gm/dL Albumin 2.6 L D (3.4-5.0) gm/dL Globulin 3.7 H (1.3-3.2) gm/dl Albumin/Globulin Ratio 0.7 L (1.1-1.8) Cholesterol 110 L (140-200) mg/dL HDL Cholesterol 75 H (27-67) mg/dL Urine Bacteria (None) /lpf H & H 04/25/19 04/26/19 Range/Units 14:00 05:50 Hgb 12.1 L 10.6 L D (14.1-18.0) g/dL Hct 35.7 L 31.2 L (42.0-52.0) % Coagulation 04/26/19 Range/Units 05:50 INR 1.19 H (0.9-1.1) All other labs normal. <Belen Cabrera - 04/26/19 14:36> Assessment and Plan (1) Severe protein-calorie malnutrition Current visit: Yes Status: Acute Category: Medical Code(s): E43 - Unspecified severe protein-calorie malnutrition (2) Osteoarthritis of right hip Current visit: Yes Status: Acute Category: Medical Code(s): M16.11 - Unilateral primary osteoarthritis, right hip (3) Right inguinal hernia Current visit: Yes Status: Acute Category: Medical Code(s): K40.90 - Unilateral inguinal hernia, without obstruction or gangrene, not specified as recurrent (4) UTI (urinary tract infection) Current visit: Yes Status: Acute Category: Medical Code(s): N39.0 - Urinary tract infection, site not specified <Belen Cabrera - 04/26/19 16:41> (1) Severe protein-calorie malnutrition Current visit: Yes Status: Acute Category: Medical Code(s): E43 - Unspecified severe protein-calorie malnutrition (2) Osteoarthritis of right hip Current visit: Yes Status: Acute Category: Medical Code(s): M16.11 - Unilateral primary osteoarthritis, right hip (3) Right inguinal hernia Current visit: Yes Status: Acute Category: Medical Code(s): K40.90 - Unilateral inguinal hernia, without obstruction or gangrene, not specified as recurrent (4) UTI (urinary tract infection) Current visit: Yes Status: Acute Category: Medical Code(s): N39.0 - Urinary tract infection, site not specified (5) Hallux abducto valgus, bilateral Current visit: Yes Status: Acute Category: Medical Code(s): M20.11 - Hallux valgus (acquired), right foot; M20.12 - Hallux valgus (acquired), left foot (6) Acquired hammertoes of both feet Current visit: Yes Status: Acute Category: Medical Code(s): M20.41 - Other hammer toe(s) (acquired), right foot; M20.42 - Other hammer toe(s) (acquired), left foot (7) Osteoarthritis of feet, bilateral Current visit: Yes Status: Acute Category: Medical Code(s): M19.071 - Primary osteoarthritis, right ankle and foot; M19.072 - Primary osteoarthritis, left ankle and foot (8) Callus of foot Current visit: Yes Status: Acute Category: Medical Code(s): L84 - Corns and callosities (9) Pre-ulcerative calluses Current visit: Yes Status: Acute Category: Medical Code(s): L84 - Corns and callosities <Manju Alford - 04/26/19 16:42> - Assessment and plan all Dx Assessment and Plan for all problems:: Onychogryphosis, calluses: Nails trimmed x 10s. Dremel used to smooth down thickened toenails. Calluses (x 6) were debrided with a number 15 blade without incident. No underlying ulcer. Recommend use of lotion daily. Recommend ``U felt offloading pads or mole skin as needed. Follow up in 3 months or as needed for routine foot care. HAV, HTs: We discussed conservative treatment options. Conservative treatment options include change shoe wear, prefab or custom molded inserts, strapping, taping and padding. Patient can also use topical NSAIDs, ice and elevate for pain and swelling. Discussed that patient would benefit form wider and deeper shoe wear to accommodate the deformity. Obtain WB 3 views b/l feet x-rays if symptoms noted or starts to have pain. Physician Attestation I have read the consult note that was documented by the [employer] and agree with the documentation. <Manju Alford - 04/26/19 16:41> Plan: 1. Nails trimmed and dremmel down to smooth. 2. Calluses debrided Cleaned with alcohol prep pads and then removed with a #15 blade, no underlying ulcers were noted. 3. Educated the patient about Routine foot care and routine nail trimming. 4. Patient can be put on our routine Foot care schedule to maintain his nails and callus care 3 months out. <Belen Cabrera - 04/26/19 14:36>
--- NOTE | 2019-04-26 17:08 | Consult Report ---
*Admission Date: 04/26/19 *History of present illness: Patient is a 73-year-old male who has reportedly not had any recent ongoing medical care who was brought to the emergency department yesterday evening with complaints of right hip pain. The patient states he lives with his Brother that is 71 years old and that he is not . The patient presents today with onychogryphosis that is causing him pain due to the extensive length and some of the nails are incurvated inward and pressing into the skin under the nails. This is making wearing shoes very difficult. Patient would like his nails trimmed today. 73-year-old white with essentially negative past medical history except for an episode of multiple abdominal surgeries at [facility] several years ago because "my intestine was wrapped around my gallbladder" who presented to the emergency department because he was unable to walk. In the emergency department he was found to be in extensive pain, and had not been to see medical attention since Dr. Munoz . He was found to have unkempt personal hygiene, oral hygiene and exceedingly long toenails that had not been trimmed in several years. Was also found to have a urinary tract infection, leukocytosis, acute kidney injury and right sided inguinal hernia. No medical records are available so comparison is somewhat difficult. Was also found to have impacted severe arthritis of the right hip consistent with avascular necrosis. Patient was admitted to hospital for further evaluation and multiple consultations from surgery specialties. Review of Systems - Review of Systems Review of systems:: pertinent systems reviewed and negative unless documented below - *Neurologic Reports restless legs, Reports weakness [facility] History I have reviewed the patient's past medical history: Yes Medical History: Denies:: Diabetes Mellitus Type 1 *Have you ever received a pneumonia vaccine?: No *Have you received a flu vaccine this season?: No - *Social History Educational Level: Completed Grade School Smoking Status: Current some day smoker Tobacco Type: pipe # Packs/Day (cigarettes): 0 Alcohol Intake: never *Occupational Status:: retired Household Members: family *Travel in the last 8 weeks: None Family Hx:: Cancer, Diabetes, Heart Attack Meds Home Medications Medication Instructions Recorded Confirmed Type No Known Home Medications 04/25/19 04/25/19 History Allergies Allergy/AdvReac Type Severity Reaction Status Date / Time morphine Allergy Unknown Verified 04/26/19 07:43 allergy reaction Exam Vital signs and Labs for Last 24 Hours: Temp Pulse Resp BP Pulse Ox 98.9 F 73 18 127/78 99 04/26/19 15:32 04/26/19 15:32 04/26/19 15:32 04/26/19 15:32 04/26/19 15:32 Laboratory Results - last 24 hr 04/26/19 05:50: WBC 12.3 H, RBC 3.32 L, Hgb 10.6 L D, Hct 31.2 L, MCV 94.0, MCH 31.5 H, MCHC 33.5, RDW 12.7, Plt Count 163, MPV 8.9, Neut % (Auto) 92.3 H, Lymph % (Auto) 3.5 L, [place] % (Auto) 4.0, Eos % (Auto) 0.1, Baso % (Auto) 0.1, Neut # (Auto) 11.3 H, Lymph # (Auto) 0.4 L, [place] # (Auto) 0.5, Eos # (Auto) 0.0, Baso # (Auto) 0.0, Total Counted 100, Neutrophils % (Manual) 89 H, Band Neutrophils % 1.0, Lymphocytes % (Manual) 3 L, Monocytes % (Manual) 7, Platelet Estimate Normal, RBC Morphology Normal 04/26/19 05:50: PT 12.3 H, INR 1.19 H 04/26/19 05:50: Sodium 141, Potassium 4.0, Chloride 106, Carbon Dioxide 26, Anion Gap 13.0, BUN 29 H, Creatinine 1.50 H, Estimated Creat Clear 28, Estimated GFR 46 L, Est GFR ( Amer) 56 L, Glucose 122 H, Calcium 8.3 L, Phosphorus 2.0 L, Magnesium 1.9, Total Bilirubin 1.4 H, AST 43 H, ALT 26, Alkaline Phosphatase 51, Total Protein 6.3 L, Albumin 2.6 L D, Globulin 3.7 H, Albumin/Globulin Ratio 0.7 L, Triglycerides 31, Cholesterol 110 L, LDL Cholesterol 29, VLDL Cholesterol 6, HDL Cholesterol 75 H, Cholesterol/HDL Ratio 1.5 I & O for Last 24 hours: Intake & Output 04/24/19 04/25/19 04/26/19 04/27/19 11:59 11:59 11:59 11:59 Intake Total 1506 / 1506 Output Total 775 / 775 125 / 125 Balance 731 / 731 -125 / -125 Weight 99 lb 5 oz 99 lb 4.986 oz Microbiology Reports for the Last 24 Hours: Microbiology 04/25/19 14:00 Urine,Catheterized Urine Culture - Preliminary NO GROWTH AFTER 24 HOURS - *Routine Extremities Exam Comments: Right hip: Skin: good condition, no rashes, scars or ulcerations present. Palpation/Inspection: There is shortening of the right lower extremity compared to the left side by about 2-3 cm. The right hip is in flexion and external rotation; tender over the hip joint anteriorly. Not tender over the ASIS, iliac crest, PSIS, greater trochanter and the ischial tuberosity. Range of motion: All the movements are severely limited and painful; hip is in 20 degrees of fixed flexion and further flexion possible up to 60 degrees; abduction and adduction is very limited with pain; rotations are completely absent Strength: good strength noted during examination. Neurovascular status: Grossly intact. Sensation is intact to light touch throughout. Dorsalis pedis and posterior tibialis pulses are 1+ bilaterally. Miscellaneous: No pedal edema noticed. Thigh and calf are soft and nontender. Homans sign is negative; clinically no evidence of DVT noted. On examination of the opposite hip, there is no tenderness. The movements of the left hip are full and pain-free. Examination of both knee joints is unremarkable. Diagnostic Imaging: X-rays of his pelvis AP view and the right hip AP and lateral views performed at [facility] were reviewed along with radiologist report. The x-rays are showing severe degenerative changes with significant destruction and collapse of the right femoral head with superior migration; periarticular osteophyte formation, subarticular sclerosis and cyst formation noted. These changes have progressed significantly compared to previous imaging. The left hip joint is relatively well-preserved. Results - Labs Result Diagrams: 04/26/19 05:50 04/26/19 05:50 Labs: Abnormal lab results 04/26/19 04/26/19 04/26/19 Range/Units 05:50 05:50 05:50 WBC 12.3 H (4.8-10.8) K/mm3 RBC 3.32 L (4.60-6.20) M/mm3 Hgb 10.6 L D (14.1-18.0) g/dL Hct 31.2 L (42.0-52.0) % MCH 31.5 H (27.0-31.2) pg Neut % (Auto) 92.3 H (37.0-80.0) % Lymph % (Auto) 3.5 L (10-50) % Neut # (Auto) 11.3 H (1.8-7.8) K/mm3 Lymph # (Auto) 0.4 L (0.7-4.5) K/mm3 Neutrophils % (Manual) 89 H (42-76) % Lymphocytes % (Manual) 3 L (10-50) % PT 12.3 H (9.4-11.8) seconds INR 1.19 H (0.9-1.1) BUN 29 H (7-18) mg/dL Creatinine 1.50 H (0.70-1.30) mg/dL Estimated GFR 46 L (>60) ml/min Est GFR ( Amer) 56 L (>60) ML/MIN Glucose 122 H (74-106) mg/dL Calcium 8.3 L (8.5-10.1) mg/dL Phosphorus 2.0 L (2.4-4.9) mg/dL Total Bilirubin 1.4 H (0.2-1.0) mg/dL AST 43 H (15-37) U/L Total Protein 6.3 L (6.4-8.2) gm/dL Albumin 2.6 L D (3.4-5.0) gm/dL Globulin 3.7 H (1.3-3.2) gm/dl Albumin/Globulin Ratio 0.7 L (1.1-1.8) Cholesterol 110 L (140-200) mg/dL HDL Cholesterol 75 H (27-67) mg/dL H & H 04/25/19 04/26/19 Range/Units 14:00 05:50 Hgb 12.1 L 10.6 L D (14.1-18.0) g/dL Hct 35.7 L 31.2 L (42.0-52.0) % Coagulation 04/26/19 Range/Units 05:50 INR 1.19 H (0.9-1.1) All other labs normal. Assessment and Plan (1) Severe protein-calorie malnutrition Current visit: Yes Status: Acute Category: Medical Code(s): E43 - Unspecified severe protein-calorie malnutrition (2) Osteoarthritis of right hip Current visit: Yes Status: Acute Category: Medical Code(s): M16.11 - Unilateral primary osteoarthritis, right hip I have reviewed the clinical and imaging findings with the patient. I have discussed the diagnosis, natural history and management options in detail including both nonsurgical and surgical. Following a detailed discussion, I have recommended conservative management including rest, activity modification, ice or heat as appropriate, use of a cane or other walking aids as appropriate, NSAIDs, range of motion and strengthening exercises, physical therapy and mobilization weightbearing as tolerated. We have also discussed the role of jose a alexandra in his management, which in his case would be a total hip arthroplasty. We have discussed regarding the surgery, expected outcomes and potential complications. I do not think patient's medical/general condition is appropriate for a major elective surgery like a total hip arthroplasty at [facility]. However, this can be considered at a later date when the patient's overall general condition improves and after appropriate clearances. All the questions were answered and the patient verbalized a good understanding. From an orthopedic standpoint patient can be discharged to be followed up in the office as needed. (3) Right inguinal hernia Current visit: Yes Status: Acute Category: Medical Code(s): K40.90 - Unilateral inguinal hernia, without obstruction or gangrene, not specified as recurrent (4) UTI (urinary tract infection) Current visit: Yes Status: Acute Category: Medical Code(s): N39.0 - Urinary tract infection, site not specified (5) Hallux abducto valgus, bilateral Current visit: Yes Status: Acute Category: Medical Code(s): M20.11 - Hallux valgus (acquired), right foot; M20.12 - Hallux valgus (acquired), left foot (6) Acquired hammertoes of both feet Current visit: Yes Status: Acute Category: Medical Code(s): M20.41 - Other hammer toe(s) (acquired), right foot; M20.42 - Other hammer toe(s) (acquired), left foot (7) Osteoarthritis of feet, bilateral Current visit: Yes Status: Acute Category: Medical Code(s): M19.071 - Primary osteoarthritis, right ankle and foot; M19.072 - Primary osteoarthritis, left ankle and foot (8) Callus of foot Current visit: Yes Status: Acute Category: Medical Code(s): L84 - Corns and callosities (9) Pre-ulcerative calluses Current visit: Yes Status: Acute Category: Medical Code(s): L84 - Corns and callosities
[2019-04-27 06:14] LABS: Anion Gap 11.5 mEq/L (5-15); Calcium 8.2 mg/dL (8.5-10.1)
[2019-04-27 06:55] LABS: Phosphorous 1.9 mg/dL (2.4-4.9)
--- NOTE | 2019-04-27 08:25 | Progress Note ---
Internal Medicine - PN: Subj *Date: 04/27/19 *Time: 08:18 Interval history: Mr. Powell did well overnight. Denies any fevers, shortness of breath, nausea, vomiting. Continues to have significant pain in the right hip however he is not requesting any pain medications. Tolerating diet well, ate half of his breakfast. Voiding independently after removal of Adam yesterday. Orthopedic saw patient yesterday and recommended conservative management for hip due to severity of degeneration and arthritis. PT saw patient, recommendations for "rehab placement at this time due to generalized weakness, but could return home if necessary with assistance." Exam Vital signs and Labs for Last 24 Hours: Temp Pulse Resp BP Pulse Ox 98.0 F 100 H 19 122/86 99 04/27/19 07:50 04/27/19 07:50 04/27/19 07:50 04/27/19 07:50 04/27/19 07:50 Laboratory Results - last 24 hr 04/26/19 05:50: Total Counted 100, Neutrophils % (Manual) 89 H, Band Neutrophils % 1.0, Lymphocytes % (Manual) 3 L, Monocytes % (Manual) 7, Platelet Estimate Normal, RBC Morphology Normal 04/27/19 05:55: Sodium 136, Potassium 4.5, Chloride 105, Carbon Dioxide 24, Anion Gap 11.5, BUN 27 H, Creatinine 1.33 H, Estimated Creat Clear 33, Estimated GFR 53 L, Est GFR ( Amer) 64, Glucose 96, Calcium 8.2 L, Phosphorus 1.9 L , Magnesium 1.8 I & O for Last 24 hours: Intake & Output 04/24/19 04/25/19 04/26/19 04/27/19 23:59 23:59 23:59 23:59 Intake Total 240 / 240 1266 / 1266 3042 / 3042 Output Total 550 / 550 350 / 350 400 / 400 Balance -310 / -310 916 / 916 2642 / 2642 Weight 43.658 kg 45.047 kg 46.975 kg Microbiology Reports for the Last 24 Hours: Microbiology 04/25/19 14:00 Urine,Catheterized Urine Culture - Preliminary NO GROWTH AFTER 24 HOURS Narrative: Patient is pleasant, talkative, seems to have a degree of intellectual disability, no acute distress on room air Oropharynx clear but with multiple rotting teeth in various stages of disrepair. Patient appears cachectic with severe protein calorie malnutrition. Abdomen is scaphoid, significant scarring with evidence of abdominal wall defect from his multiple surgeries. Extremities are warm and well-perfused. Patient has significant pain with any movement of the right hip, but the hip is not foreshortened or rotated. Toenails trimmed. Interval improvement in foot exam Patient's upper extremities are thin Anterior lung kan are clear, heart rate regular. No JVD. Neurologic exam is nonfocal except for some global weakness Assessment and Plan (1) Severe protein-calorie malnutrition Current visit: Yes Status: Acute Category: Medical Code(s): E43 - Unspecified severe protein-calorie malnutrition Patient at risk for refeeding syndrome. Will replace phosphorus today and monitor on labs tomorrow morning. (2) Osteoarthritis of right hip Current visit: Yes Status: Acute Category: Medical Code(s): M16.11 - Unilateral primary osteoarthritis, right hip (3) Right inguinal hernia Current visit: Yes Status: Acute Category: Medical Code(s): K40.90 - Unilateral inguinal hernia, without obstruction or gangrene, not specified as recurrent (4) UTI (urinary tract infection) Current visit: Yes Status: Acute Category: Medical Code(s): N39.0 - Urinary tract infection, site not specified (5) Hallux abducto valgus, bilateral Current visit: Yes Status: Acute Category: Medical Code(s): M20.11 - Hallux valgus (acquired), right foot; M20.12 - Hallux valgus (acquired), left foot (6) Acquired hammertoes of both feet Current visit: Yes Status: Acute Category: Medical Code(s): M20.41 - Other hammer toe(s) (acquired), right foot; M20.42 - Other hammer toe(s) (acquired), left foot (7) Osteoarthritis of feet, bilateral Current visit: Yes Status: Acute Category: Medical Code(s): M19.071 - Primary osteoarthritis, right ankle and foot; M19.072 - Primary osteoarthritis, left ankle and foot (8) Callus of foot Current visit: Yes Status: Acute Category: Medical Code(s): L84 - Corns and callosities (9) Pre-ulcerative calluses Current visit: Yes Status: Acute Category: Medical Code(s): L84 - Corns and callosities - Assessment and plan all Dx Assessment and Plan for all problems:: Cachectic 73-year-old male with severe osteoarthritis of right hip. Conservative management at this time. Will have physical therapy work with patient again today. Make sure patient has DME at home with plan for discharge home tomorrow with home health for physical therapy. Patient would benefit from outpatient follow-up to discuss total hip replacement in the future. Continues to require inpatient management.
--- NOTE | 2019-04-28 08:18 | Discharge Summary ---
General - General Admission date:: 04/25/19 Discharge date: 04/28/19 HPI HPI: 73-year-old white with essentially negative past medical history except for an episode of multiple abdominal surgeries at [facility] several years ago because "my intestine was wrapped around my gallbladder" who presented to the emergency department because he was unable to walk. In the emergency department he was found to be in extensive pain, and had not be en to see medical attention since Dr. Munoz . He was found to have unkempt personal hygiene, oral hygiene and exceedingly long toenails that had not been trimmed in several years. Was also found to have a urinary tract infection, leukocytosis, acute kidney injury and right sided inguinal hernia. No medical records are available so comparison is somewhat difficult. Was also found to have impacted severe arthritis of the right hip consistent with avascular necrosis. Patient was admitted to hospital for further evaluation and multiple consultations from surgery specialties. Hospital Course Hospital Course: Patient was admitted. Podiatry was consulted for toenail care and these were trimmed, buffed and polished with good cosmetic results and much improvement in the patient's symptoms. Orthopedics was consulted and felt that his hip was significantly afflicted with arthritis, and would need a total hip replacement and that the patient would be better served if he was nonambulatory to do this at a tertiary care center. Physical therapy was consulted, and with pain control with Tylenol patient was able to ambulate with a walker. He did well and his pain improved nicely and hip flexion also improved with some physical therapy. Surgery was consulted for his inguinal hernia, recommended nonoperative watchful waiting given his significant surgical history and lack of evidence of incarceration. Interestingly although he had evidence of UTI, cultures were negative. Patient improved with antibiotics, bowel and bladder movements were also unremarkable. Patient lives with a brother who has no children is also not , but apparently there are some nieces and nephews from other siblings who are involved with his care. They have not been present during MD rounds, but apparently they have told the nursing staff they are interested in long-term placement for this patient. He is clearly not interested. He wishes to be discharged home to live with his brother. As a result he will be discharged home today. We will send him a prescription for meloxicam, supplemented with Tylenol for his arthritis pain. He has had no physician for several years, I will make him an appointment in my office next week and if the family wishes him to be placed in a long-term care facility they can call these facilities. He does not meet skilled care criteria for Medicare to pay for any kind of admissions. Objective Vital signs: Temp Pulse Resp BP Pulse Ox 98.6 F 67 18 125/62 100 04/28/19 04:00 04/28/19 04:00 04/28/19 04:00 04/28/19 04:00 04/28/19 04:00 Narrative: Patient is awake. Alert. Oriented x2. A little fuzzy about the date. Wishes to go home. Oropharynx with poor dentition but otherwise moist, clear. Lung kan are clear, heart rate regular. Abdomen soft, previous abdominal scarring noted. Extremities show much improved foot hygiene. He has much better ability to flex his hip. He has no pain with lifting his knees off the bed as previously noted. Distal extremities warm and well-perfused. Neurologic exam is intact other than some global weakness. Results Labs on day of discharge: Preliminary micro results at discharge 04/25/19 14:00 Blood Culture - Preliminary Blood NO GROWTH AFTER 48 HOURS 04/25/19 14:00 Blood Culture - Preliminary Blood NO GROWTH AFTER 48 HOURS DS: Diagnosis - Discharge Diagnosis (1) Severe protein-calorie malnutrition Status: Acute (2) Osteoarthritis of right hip Status: Acute (3) Right inguinal hernia Status: Acute (4) UTI (urinary tract infection) Status: Acute (5) Hallux abducto valgus, bilateral Status: Acute (6) Acquired hammertoes of both feet Status: Acute (7) Osteoarthritis of feet, bilateral Status: Acute (8) Callus of foot Status: Acute (9) Pre-ulcerative calluses Status: Acute Discharge Plan - Patient Discharge Instructions ACTIVITY: Continue current activity, Ambulate as tolerated DIET: continue same diet Patient Instructions: Eating a Diet Moderate in Protein-Rich Foods, Nutritional Deficiency (Alternative Therapy), High-Calorie, High-Protein Diet, DI for Failure to Thrive, DI for Malnutrition - Older Adults - Follow up Plan Follow up with: Keisha Feliciano APRN [Nurse Practitioner] - 05/03/19 8:30 am Unknown provider or service follow up:: 04/28/19 08:19 Recommend home health evaluation for PT/OT/nursing care/nutritional evaluation Disposition: Home Health Service Home Medications: Home Medications Medication Instructions Recorded Confirmed Type No Known Home Medications 04/25/19 04/25/19 History Acetaminophen [Tylenol 500mg 500 mg PO TIDP PRN #90 tab 04/28/19 Rx tablet] Meloxicam 15 mg PO DAILY #30 tab 04/28/19 Rx levoFLOXacin [Levaquin 500mg 500 mg PO DAILY #7 tab 04/28/19 Rx tab] Prescriptions/Medication Reconciliation: New Meloxicam 15 mg PO DAILY #30 tab Acetaminophen [Tylenol 500mg tablet] 500 mg PO TIDP PRN #90 tab PRN Reason: Moderate Pain levoFLOXacin [Levaquin 500mg tab] 500 mg PO DAILY #7 tab No Action No Known Home Medications - Problem Reconciliation Problems Reviewed?: Yes
--- NOTE | 2019-05-02 14:37 | Electrocardiograph Report ---
APPROVED REPORT Exam: Resting ECG HR:82 bpm ECG Measurements Heart Rate 82 AXES MS 158 P 25 QRSd 74 QRS 19 QT 374 T13 QTc 436 <Conclusion> Demand pacemaker, interpretation is based on intrinsic rhythm Normal sinus rhythm with sinus arrhythmia Nonspecific T wave abnormality Abnormal ECG Electronically signed by : Juanjose Mcleod, 05/02/2019 14:37:39
== END 2019-04-28 11:03 | disposition home health service (06) ==
LOC: ER 14:01 → 2ND 14:01
PROVIDERS: ADMIT Internal Medicine Adolescent Medicine; ATTEND Internal Medicine Adolescent Medicine
CPT/HCPCS: 36415; 71250; 73502; 74176; 80048; 80053; 80061; 81001; 82272; 83605; 83735; 84100; 84134; 84443; 84484; 85007; 85025; 85610; 86140; 87040; 87086; 93005; 96365; 96367; 97116; 97162; 97530; 99285; G0328; G0378; J1956; J2543

== ENCOUNTER 2019-04-30 16:21 | Observation (INO) ==
[2019-04-30 16:37] LABS: Basophils % 0.3 % (0.1-2.0); Eosinophils # 0.4 K/mm3 (0.0-0.4); Eosinophils % 3.3 % (0.1-12.0); Hematocrit 35.6 % (42.0-52.0); Hemoglobin 11.3 g/dL (14.1-18.0); Lymphocytes # 1.4 K/mm3 (0.7-4.5); Lymphocytes % 13.3 % (10-50); Mean Corpuscular HGB Conc 31.7 g/dL (31.8-35.4); Mean Corpuscular Volume 94.6 fl (80-94); Mean Platelet Volume 7.6 fl (7.4-10.4); Monocytes # 0.8 K/mm3 (0.1-1.0); Monocytes % 7.6 % (1.7-9.3); Neutrophils # 8.2 K/mm3 (1.8-7.8); Neutrophils % 75.5 % (37.0-80.0); Platelet Count 361 K/mm3 (142-424); Red Blood Count 3.76 M/mm3 (4.60-6.20); Red Cell Distribution Width 13.7 % (11.5-17.5); White Blood Count 10.8 K/mm3 (4.8-10.8)
[2019-04-30 16:50] LABS: Albumin Level 2.8 gm/dL (3.4-5.0); Albumin/Globulin Ratio 0.7 (1.1-1.8); Anion Gap 13.5 mEq/L (5-15); Bilirubin,Total 0.6 mg/dL (0.2-1.0); C-Reactive Protein 9.6 mg/dL (0.0-0.9); Calcium 8.4 mg/dL (8.5-10.1); Globulin 4.3 gm/dl (1.3-3.2); Total Protein,Serum 7.1 gm/dL (6.4-8.2)
[2019-04-30 16:59] LABS: Erythrocyte Sedimentation Rate 127 mm/hr (0-20)
[2019-04-30 17:44] LABS: Microscopic, Urine URINE MICROSCOPIC (MICROSCOPIC)
[2019-04-30 17:45] LABS: Appearance,Urine CLEAR (Clear); Bilirubin,Urine Negative (Negative); Blood, Urine Negative (Negative); Color,Urine YELLOW (Yellow); Glucose,Urine (UA) Negative (Negative); Ketones,Urine Negative (Negative); Leukocyte Esterase,Urine Negative (Negative); Protein,Urine TRACE (Negative); Specific Gravity, Urine >= 1.030 (1.005-1.030)
--- NOTE | 2019-04-30 17:48 | Emergency Department Note ---
ED Disposition Clinical Impression: Back pain, Osteoarthritis of right hip Disposition: Home, Self-Care Condition on Discharge: Fair Instructions: DI for Low Back Pain, DI for Hip Pain, DI for Osteoarthritis Additional Instructions: Follow-up with your primary care provider on Friday for reevaluation. Return to the emergency department immediately if symptoms are worse. Referrals: Juanjose Mcleod MD [Primary Care Provider] - Time of Disposition: 17:52 - Critical Care Critical Care Time: No Attestation: On 04/30/19, the high probability of a clinically significant, sudden or life threatening deterioration of the following system(s) required my full and direct attention, intervention and personal management. The time I documented below is in addition to time spent performing reported procedures but includes the fol lowing listed in this critical care notation. Medical Decision Making - Medical Records Medical records reviewed: Yes: I reviewed the patient's medical records. - Robert Inquiry Pt receiving controlled substance: No Vital Signs: 04/30/19 16:22 Temperature 98.4 F Temperature Source Oral Pulse Rate [Right] 88 Respiratory Rate 18 Blood Pressure [Right Arm] 165/90 H Blood Pressure Mean [Right Arm] 115 02 Sat by Pulse Oximetry 98 - Lab Data Lab results reviewed: Yes: I reviewed the patient's lab results. Lab Results 04/30/19 16:25: WBC 10.8, RBC 3.76 L, Hgb 11.3 L, Hct 35.6 L, MCV 94.6 H, MCH 30.0, MCHC 31.7 L, RDW 13.7, Plt Count 361, MPV 7.6, Neut % (Auto) 75.5, Lymph % (Auto) 13.3, [place] % (Auto) 7.6, Eos % (Auto) 3.3, Baso % (Auto) 0.3, Neut # (Auto) 8.2 H, Lymph # (Auto) 1.4, [place] # (Auto) 0.8, Eos # (Auto) 0.4, Baso # (Auto) 0.0, ESR 127 H 04/30/19 16:25: Sodium 142, Potassium 3.5, Chloride 102, Carbon Dioxide 30, Anion Gap 13.5, BUN 18, Creatinine 1.07, Estimated Creat Clear 40, Estimated GFR 68, Est GFR ( Amer) 82, Glucose 173 H, Calcium 8.4 L, Total Bilirubin 0.6, AST 50 H, ALT 43, Alkaline Phosphatase 127 H, C-Reactive Protein 9.6 H, Total Protein 7.1, Albumin 2.8 L, Globulin 4.3 H, Albumin/Globulin Ratio 0.7 L Result diagrams: 04/30/19 16:25 04/30/19 16:25 Orders (Tests/Meds): ORDERS Category Date Time Status CT lumbar spine wo con Stat Cat Scan 04/30/19 16:29 Taken UA [Urinalysis and Microscopic] Stat Lab 04/30/19 17:40 Received - CT Data CT Scan: L-Spine Time Received: 17:[address] Reviewed: Yes: I have reviewed the patient's CT results, I have viewed the radiologist's interpretation Preliminary Findings: Abnormal (Degenerative changes.), No Fracture Seen General Adult HPI - General Chief complaint: Back Pain/Injury Stated complaint: pain Time Seen by Provider: 04/30/19 16:30 Mode of Arrival: EMS Limitations: No Limitations Description of Symptoms (Recalled from ER Triage Doc. by RN): Pt states he was discharged from 2nd floor on after being treated for a uti and arthitis. Pt states he has not filled any of his meds and continues to be have severe back pain from his arthritis. - History of Present Illness HPI narrative: 73-year-old male with chronic low back pain and right hip pain presents to the emergency department for pain. Patient denies any new injury or other symptoms. He has been unable to obtain his pain medications and will not be able to until tomorrow. Onset (ago): day(s) (2) Location: back Radiation: non-radiation Severity: moderate, severe Quality: aching Consistency: constant Relieving factors: none Exacerbating factors: none Associated symptoms: denies other symptoms Treatments prior to arrival: none - Related Data Home Medications Medication Instructions Recorded Confirmed No Known Home Medications 04/25/19 04/25/19 Previous Rx's Medication Instructions Recorded Acetaminophen [Tylenol 500mg 500 mg PO TIDP PRN #90 tab 04/28/19 tablet] Meloxicam 15 mg PO DAILY #30 tab 04/28/19 levoFLOXacin [Levaquin 500mg 500 mg PO DAILY #7 tab 04/28/19 tab] Allergies Allergy/AdvReac Type Severity Reaction Status Date / Time morphine Allergy Unknown Verified 04/26/19 07:43 allergy reaction [facility] History - Hepatitis A Screen Drug use history?: No High risk sexual behaviors?: No History of sexually transmitted infection?: No Currently employed?: No Childcare worker?: No Do you have indoor plumbing?: Yes Do you have electricity?: Yes Attestation statement:: This patient has been screened for Hepatitis A risk factors. I have reviewed the patient's past medical history: Yes Medical History: Denies:: Diabetes Mellitus Type 1 - Social History Smoking Status: Current some day smoker Tobacco Type: pipe # Packs/Day (cigarettes): 0 Alcohol Intake: never Occupational Status: retired Household Members: family Family Hx:: Cancer, Diabetes, Heart Attack ROS Obtained: Yes Systems reviewed as appropriate & no additional complaints - Constitutional Constitutional: Reports malaise - Eyes Eyes: Reports system reviewed and no additional complaints, except as docu - ENT Ears, Nose, Mouth, and Throat: Reports system reviewed and no additional complaints, except as docu - Cardiovascular Cardiovascular: Reports system reviewed and no additional complaints, except as docu - Respiratory Respiratory: Yes system reviewed and no additional complaints, except as docu - Gastrointestinal Gastrointestingal: Reports: system reviewed and no additional complaints, except as docu - Genitourinary Male Genitourinary: Reports system reviewed and no additional complaints, except as docu - Musculoskeletal Musculoskeletal: Reports joint pain (Right hip), Reports back pain (Low back pain) - Integumentary/Breasts Skin/Breast: Reports system reviewed and no additional complaints, except as docu - Neurologic Neurologic: Reports system reviewed and no additional complaints, except as docu - Endocrine Endocrine: Reports system reviewed and no additional complaints, except as docu - Hematologic/Lymphatic Henatologic/Lymphatic: Reports system reviewed and no additional complaints, except as docu - Allergic/Immunologic Allergic/Immunologic: Reports system reviewed and no additional complaints, except as docu Physical Exam - General General appearance: alert, in no apparent distress - Head Head exam: atraumatic, normocephalic, normal inspection - Eye Eye exam: Present: normal appearance, PERRL, EOMI - ENT ENT exam: Present: normal exam, normal oropharynx, mucous membranes moist, normal external ear exam - Neck Neck exam: Present: normal inspection, full ROM, trachea midline. Absent: meningismus, lymphadenopathy - Chest Chest inspection: Present: normal inspection, symmetric chest wall rise. Absent: tenderness - Respiratory Respiratory exam: Present: normal lung sounds bilaterally. Absent: respiratory distress - Cardiovascular Cardiovascular exam: Present: regular rate, normal rhythm. Absent: JVD - Abdominal Exam Abdominal exam: Present: soft, normal bowel sounds. Absent: distention, tenderness, guarding - Extremities Exam Extremities exam: Present: normal inspection, full ROM, normal capillary refill. Absent: calf tenderness - Back Exam Back exam: Present: normal inspection. Absent: tenderness - Neurological Exam Neurological exam: Present: alert, oriented X3, CN II-XII intact. Absent: motor sensory deficit - Psychiatric Psychiatric exam: Present: normal affect, normal mood - Skin Skin exam: Present: warm, dry, intact, normal color
[2019-04-30 17:52] LABS: WBC,Urine Occasional #/hpf (0-3)
[2019-04-30 17:53] LABS: Calcium Oxalate Crystals,Urine 2+ /lpf
[2019-05-01 06:56] LABS: Basophils % 0.4 % (0.1-2.0); Eosinophils # 0.4 K/mm3 (0.0-0.4); Eosinophils % 6.4 % (0.1-12.0); Lymphocytes # 1.1 K/mm3 (0.7-4.5); Lymphocytes % 17.7 % (10-50); Mean Corpuscular HGB Conc 30.8 g/dL (31.8-35.4); Mean Corpuscular Volume 93.9 fl (80-94); Mean Platelet Volume 7.6 fl (7.4-10.4); Monocytes # 0.6 K/mm3 (0.1-1.0); Monocytes % 8.9 % (1.7-9.3); Neutrophils # 4.3 K/mm3 (1.8-7.8); Neutrophils % 66.6 % (37.0-80.0); Platelet Count 314 K/mm3 (142-424); Red Cell Distribution Width 13.6 % (11.5-17.5); White Blood Count 6.4 K/mm3 (4.8-10.8)
[2019-05-01 06:59] LABS: Anion Gap 7.7 mEq/L (5-15); Calcium 8.2 mg/dL (8.5-10.1)
[2019-05-01 07:04] LABS: Hematocrit 31.4 % (42.0-52.0); Hemoglobin 9.7 g/dL (14.1-18.0); Red Blood Count 3.35 M/mm3 (4.60-6.20)
--- NOTE | 2019-05-01 11:25 | Pharmacy Consult Notes ---
[facility] Pharmacy VTE Monitoring - Patient Demographics Admission date: 04/30/19 Report Date: 05/01/19 Time: 11:24 Allergies/Adverse Reactions: Patient Allergies morphine Allergy (Verified 04/26/19 07:43) Unknown allergy reaction Height: 1.73 m Weight: 46.918 kg Patient Problems: Current Active Problems Osteoarthritis of right hip (Acute) Back pain (Acute) - VTE Risk Labs: VTE Related Lab Results Hgb 9.7 g/dL (14.1-18.0) L D 05/01/19 06:35 Hct 31.4 % (42.0-52.0) L 05/01/19 06:35 Plt Count 314 K/mm3 (142-424) 05/01/19 06:35 BUN 17 mg/dL (7-18) 05/01/19 06:35 Creatinine 0.96 mg/dL (0.70-1.30) 05/01/19 06:35 Estimated Creat Clear 44 mL/min (50-200) 05/01/19 06:35 VTE Score: 6 VTE Risk Level: Moderate Risk - Prophylaxis VTE Prophylaxis Ordered?: Yes Types of VTE Prophylaxis: TEDS Knee High Location of Applied Device: Bilateral Lower Extremeties - VTE Diagnosis Confirmed Treatment or plan recommended: Continue Current Treatment
--- NOTE | 2019-05-01 15:27 | History & Physical Report ---
*Admission Date: 04/30/19 *Chief complaint: pain, inability to care for self at home *History of present illness: Mr. Powell is a pleasant but debilitated 73-year-old white with essentially negative past medical history except for an episode of multiple abdominal surgeries at [facility] several years ago because "my intestine was wrapped around my gallbladder" who Re-presented to the emergency department because he was unable to walk. Of note he was admitted 2 days ago for same complaint, treated for UTI, deemed medically stable for discharge home and discharged home with a brother with whom he lives. During last admission patient stated that he felt comfortable going home. He was assessed by physical therapy and able to walk 30 to 50 feet using a walker. Was deemed appropriate to go home with assistance and states he lives with his brother "Toe". After getting home he states his brother was not able to help him very well and there was difficulty getting home health assistance at their house as they do not know their physical address nor have a phone at home. This information was not made clear at last admission. Additionally patient states he feels uncomfortable now and did not voice similar concerns prior to previous discharge. He continues to have pain with his right hip which is inoperable at our institution but he does not feel he strong enough for surgery nor does he want to consider surgery at this time. He is requesting to be placed in a fci as he puts it in his family is demanding that he be placed in a jail as well. Aside from extensive pain in the ER, he was found to have normal kidney and liver function. Does have some mild anemia, signs of inflammation, but no acute needs. From previous discharge: "Orthopedics was consulted and felt that his hip was significantly afflicted with arthritis, and would need a total hip replacement and that the patient would be better served if he was nonambulatory to do this at a tertiary care center. Physical therapy was consulted, and with pain control with Tylenol patient was able to ambulate with a walker. He did well and his pain improved nicely and hip flexion also improved with some physical therapy. Surgery was consulted for his inguinal hernia, recommended nonoperative watchful waiting given his significant surgical history and lack of evidence of incarceration. Patient improved with antibiotics, bowel and bladder movements were also unremarkable. Patient lives with a brother who has no children is also not , but apparently there are some nieces and nephews from other siblings who are involved with his care. They have not been present during MD rounds, but amol arently they have told the nursing staff they are interested in jail placement for this patient. He is clearly not interested. He wishes to be discharged home to live with his brother. As a result he will be discharged home with plan for follow-up appointment and pursuing long-term care placement in the outpatient setting. He does not meet skilled care criteria for Medicare to pay for any kind of admissions." Patient denies owning any property, is willing to pursue Medicaid, but does not feel comfortable being at home with his brother. [facility] History I have reviewed the patient's past medical history: Yes Medical History: Denies:: Diabetes Mellitus Type 1 *Have you ever received a pneumonia vaccine?: No *Have you received a flu vaccine this season?: No Other Surgeries: Yes: Hernia Repair - *Social History Educational Level: Completed Grade School Smoking Status: Current every day smoker Tobacco Type: pipe # Packs/Day (cigarettes): 1 Alcohol Intake: never *Occupational Status:: retired Household Members: family *Travel in the last 8 weeks: None Family Hx:: Cancer, Diabetes, Heart Attack Review of Systems - Review of Systems Review of systems:: pertinent systems reviewed and negative unless documented below Meds Home Medications Medication Instructions Recorded Confirmed Type Acetaminophen [Tylenol 500mg 500 mg PO TIDP PRN #90 tab 04/28/19 04/30/19 Rx tablet] Meloxicam 15 mg PO DAILY 04/30/19 04/30/19 History levoFLOXacin [Levaquin 500mg 500 mg PO DAILY 04/30/19 04/30/19 History tab] Allergies Allergy/AdvReac Type Severity Reaction Status Date / Time morphine Allergy Unknown Verified 04/26/19 07:43 allergy reaction Exam Vital signs and Labs for Last 24 Hours: Temp Pulse Resp BP Pulse Ox 98.3 F 74 18 150/86 H 98 05/01/19 12:00 05/01/19 12:00 05/01/19 12:00 05/01/19 12:00 05/01/19 12:00 Laboratory Results - last 24 hr 04/30/19 16:25: WBC 10.8, RBC 3.76 L, Hgb 11.3 L, Hct 35.6 L, MCV 94.6 H, MCH 30.0, MCHC 31.7 L, RDW 13.7, Plt Count 361, MPV 7.6, Neut % (Auto) 75.5, Lymph % (Auto) 13.3, [place] % (Auto) 7.6, Eos % (Auto) 3.3, Baso % (Auto) 0.3, Neut # (Auto) 8.2 H, Lymph # (Auto) 1.4, [place] # (Auto) 0.8, Eos # (Auto) 0.4, Baso # (Auto) 0.0, ESR 127 H 04/30/19 16:25: Sodium 142, Potassium 3.5, Chloride 102, Carbon Dioxide 30, Anion Gap 13.5, BUN 18, Creatinine 1.07, Estimated Creat Clear 40, Estimated GFR 68, Est GFR ( Amer) 82, Glucose 173 H, Calcium 8.4 L, Total Bilirubin 0.6, AST 50 H, ALT 43, Alkaline Phosphatase 127 H, C-Reactive Protein 9.6 H, Total Protein 7.1, Albumin 2.8 L, Globulin 4.3 H, Albumin/Globulin Ratio 0.7 L 04/30/19 17:40: Urine Color Yellow, Urine Appearance Clear, Urine pH 6.0, Ur Specific [place] >= 1.030, Urine Protein Trace, Urine Glucose (UA) Negative, Urine Ketones Negative, Urine Blood Negative, Urine Nitrate Negative, Urine Bilirubin Negative, Urine Urobilinogen 1.0, Ur Leukocyte Esterase Negative, Urine RBC None, Urine WBC Occasional, Ur Squamous Epith Cells 3-5, Calcium Ox alate Crystal 2+, Urine Bacteria None, Hyaline Casts 3-5, Coarse Granular Casts 3-5 05/01/19 06:35: Hemoglobin A1c 5.3 05/01/19 06:35: WBC 6.4 D, RBC 3.35 L, Hgb 9.7 L D, Hct 31.4 L, MCV 93.9, MCH 28.9, MCHC 30.8 L, RDW 13.6, Plt Count 314, MPV 7.6, Neut % (Auto) 66.6, Lymph % (Auto) 17.7, [place] % (Auto) 8.9, Eos % (Auto) 6.4, Baso % (Auto) 0.4, Neut # (Auto) 4.3, Lymph # (Auto) 1.1, [place] # (Auto) 0.6, Eos # (Auto) 0.4, Baso # (Auto) 0.0 05/01/19 06:35: Sodium 142, Potassium 3.7, Chloride 107, Carbon Dioxide 31, Anion Gap 7.7, BUN 17, Creatinine 0.96, Estimated Creat Clear 44, Estimated GFR 77, Est GFR ( Amer) 93, Glucose 78 D, Calcium 8.2 L I & O for Last 24 hours: Intake & Output 04/28/19 04/29/19 04/30/19 05/01/19 23:59 23:59 23:59 23:59 Intake Total 1268 / 1268 Output Total 250 / 250 Balance 1018 / 1018 Weight 45.926 kg 46.918 kg Narrative: Patient is pleasant, talkative, seems to have a degree of intellectual disability Oropharynx clear but with multiple rotting teeth in various stages of disrepair. Patient appears cachectic with severe protein calorie malnutrition, bitemporal wasting Abdomen is scaphoid, significant scarring with evidence of abdominal wall defect from his multiple surgeries. Right inguinal hernia that is reducible noted. Adam catheter is draining dark yellow urine. Scrotal edema noted. Extremities are warm and well-perfused. Patient has significant pain with any movement of the right hip, but the hip is not foreshortened or rotated. Anterior lung kan are clear, heart rate regular. No JVD. Neurologic exam is nonfocal except for some global weakness Assessment and Plan (1) Back pain Current visit: Yes Status: Acute Category: Medical Code(s): M54.9 - Dorsalgia, unspecified (2) Osteoarthritis of right hip Current visit: Yes Status: Acute Category: Medical Code(s): M16.11 - Unilateral primary osteoarthritis, right hip (3) Failure to thrive in adult Current visit: No Status: Acute Category: Medical Code(s): R62.7 - Adult failure to thrive (4) Pre-ulcerative calluses Current visit: No Status: Acute Category: Medical Code(s): L84 - Corns and callosities (5) Right inguinal hernia Current visit: No Status: Acute Category: Medical Code(s): K40.90 - Unilateral inguinal hernia, without obstruction or gangrene, not specified as recurrent (6) Severe protein-calorie malnutrition Current visit: No Status: Acute Category: Medical Code(s): E43 - Unspecified severe protein-calorie malnutrition - Assessment and plan all Dx Assessment and Plan for all problems:: 73-year-old male with cachexia, anemia likely secondary to nutritional deficiency, protein calorie malnutrition, and pain of right hip. Does not want surgery at this time. Requesting to be placed. No acute needs however not safe to go home. Admitted for pain management and to pursue placement with case management consult Friday morning. Will have physical therapy see patient and continue to work with him. Complete antibiotic course for previous UTI.
--- NOTE | 2019-05-02 14:14 | Progress Note ---
Internal Medicine - PN: Subj *Date: 05/02/19 *Time: 14:12 Interval history: 73-year-old with continued persistent pain of right hip. Patient severely debilitated and unable to care for himself at home. Awaiting physical therapy assessment in the morning to assist with placement needs. No acute medical needs at this time. Denies chest pain, shortness of breath, fever, nausea, vomiting. Tolerating regular diet. Exam Vital signs and Labs for Last 24 Hours: Temp Pulse Resp BP Pulse Ox 98.4 F 68 16 132/74 100 05/02/19 08:00 05/02/19 08:00 05/02/19 08:00 05/02/19 08:00 05/02/19 08:00 I & O for Last 24 hours: Intake & Output 04/29/19 04/30/19 05/01/19 05/02/19 23:59 23:59 23:59 23:59 Intake Total 1865 / 1865 791 / 791 Output Total 500 / 500 400 / 400 Balance 1365 / 1365 391 / 391 Weight 45.926 kg 46.918 kg 47.825 kg Narrative: No significant interval change in exam. Exam as follows: Patient is pleasant, talkative, seems to have a degree of intellectual disability Oropharynx clear but with multiple rotting teeth in various stages of disrepair. Patient appears cachectic with severe protein calorie malnutrition, bitemporal wasting Abdomen is scaphoid, significant scarring with evidence of abdominal wall defect from his multiple surgeries. Right inguinal hernia that is reducible noted. Adam catheter is draining dark yellow urine. Scrotal edema noted. Extremities are warm and well-perfused. Patient has significant pain with any movement of the right hip, but the hip is not foreshortened or rotated. Anterior lung kan are clear, heart rate regular. No JVD. Neurologic exam is nonfocal except for some global weakness Assessment and Plan (1) Back pain Current visit: Yes Status: Acute Category: Medical Code(s): M54.9 - Dorsalgia, unspecified (2) Osteoarthritis of right hip Current visit: Yes Status: Acute Category: Medical Code(s): M16.11 - Unilateral primary osteoarthritis, right hip (3) Failure to thrive in adult Current visit: No Status: Acute Category: Medical Code(s): R62.7 - Adult failure to thrive (4) Pre-ulcerative calluses Current visit: No Status: Acute Category: Medical Code(s): L84 - Corns and callosities (5) Right inguinal hernia Current visit: No Status: Acute Category: Medical Code(s): K40.90 - Unilateral inguinal hernia, without obstruction or gangrene, not specified as recurrent (6) Severe protein-calorie malnutrition Current visit: No Status: Acute Category: Medical Code(s): E43 - Unspecified severe protein-calorie malnutrition - Assessment and plan all Dx Assessment and Plan for all problems:: Continue to monitor overnight. Physical therapy to see patient tomorrow, placement recommendations pending. Case management consulted, will assist with referral for senior living long-term care.
--- NOTE | 2019-05-03 08:19 | Progress Note ---
Internal Medicine - PN: Subj *Date: 05/03/19 *Time: 08:18 Interval history: No changes overnight, awaiting placement Exam Vital signs and Labs for Last 24 Hours: Temp Pulse Resp BP Pulse Ox 98.9 F 67 21 137/77 98 05/03/19 04:00 05/03/19 04:00 05/03/19 04:00 05/03/19 04:00 05/03/19 04:00 I & O for Last 24 hours: Intake & Output 04/30/19 05/01/19 05/02/19 05/03/19 11:59 11:59 11:59 11:59 Intake Total 1118 / 1118 1538 / 1538 532 / 532 Output Total 250 / 250 650 / 650 600 / 600 Balance 868 / 868 888 / 888 -68 / -68 Weight 103 lb 7 oz 105 lb 6.984 oz 108 lb 2 oz Narrative: Heart rate regular, lungs clear, moving extremities well. No edema or clubbing. Assessment and Plan (1) Back pain Current visit: Yes Status: Acute Category: Medical Code(s): M54.9 - Dorsalgia, unspecified (2) Osteoarthritis of right hip Current visit: Yes Status: Acute Category: Medical Code(s): M16.11 - Unilateral primary osteoarthritis, right hip (3) Failure to thrive in adult Current visit: No Status: Acute Category: Medical Code(s): R62.7 - Adult failure to thrive (4) Pre-ulcerative calluses Current visit: No Status: Acute Category: Medical Code(s): L84 - Corns and callosities (5) Right inguinal hernia Current visit: No Status: Acute Category: Medical Code(s): K40.90 - Unilateral inguinal hernia, without obstruction or gangrene, not specified as recurrent (6) Severe protein-calorie malnutrition Current visit: No Status: Acute Category: Medical Code(s): E43 - Unspecified severe protein-calorie malnutrition - Assessment and plan all Dx Assessment and Plan for all problems:: No changes in plan, await placement with Medicaid bed usp
--- NOTE | 2019-05-03 12:40 | Discharge Summary ---
General - General Admission date:: 04/30/19 Discharge date: 05/03/19 HPI HPI: Mr. Powell is a pleasant but debilitated 73-year-old white with essentially negative past medical history except for an episode of multiple abdominal surgeries at [facility] several years ago because "my intestine was wrapped around my gallbladder" who Re-presented to the emergency department because he was unable to walk. Of note he was admitted 2 days ago for same complaint, treated for UTI, deemed medically stable for discharge home and discharged home with a brother with whom he lives. During last admission patient stated that he felt comfortable going home. He was assessed by physical therapy and able to walk 30 to 50 feet using a walker. Was deemed appropriate to go home with assistance and states he lives with his brother "Toe". After getting home he states his brother was not able to help him very well and there was difficulty getting home health assistance at their house as they do not know their physical address nor have a phone at home. This information was not made clear at last admission. Additionally patient states he feels uncomfortable now and did not voice similar concerns prior to previous discharge. He continues to have pain with his right hip which is inoperable at our institution but he does not feel he strong enough for surgery nor does he want to consider surgery at this time. He is requesting to be placed in a residential as he puts it in his family is demanding that he be placed in a [place] facility as well. Aside from extensive pain in the ER, he was found to have normal kidney and liver function. Does have some mild anemia, signs of inflammation, but no acute needs. From previous discharge: "Orthopedics was consulted and felt that his hip was significantly afflicted with arthritis, and would need a total hip replacement and that the patient would be better served if he was nonambulatory to do this at a tertiary care center. Physical therapy was consulted, and with pain control with Tylenol patient was able to ambulate with a walker. He did well and his pain improved nicely and hip flexion also improved with some physical therapy. Surgery was consulted for his inguinal hernia, recommended nonoperative watchful waiting given his significant surgical history and lack of evidence of incarceration. Patient improved with antibiotics, bowel and bladder movements were also unremarkable. Patient lives with a brother who has no children is also not , but apparently there are some nieces and nephews from other siblings who are involved with his care. They have not been present during MD rounds, but apparently they have told the nursing staff they are interested in [place] facility placement for this patient. He is clearly not interested. He wishes to be discharged home to live with his brother. As a result he will be discharged home with plan for follow-up appointment and pursuing long-term care placement in the outpatient setting. He does not meet skilled care criteria for Medicare to pay for any kind of admissions." Patient denies owning any property, is willing to pursue Medicaid, but does not feel comfortable being at home with his brother. Hospital Course Hospital Course: Patient was admitted, labs and other testing was essentially unchanged from prior admission. It was determined the patient would benefit, by his own request from long-term care placement, care management was able to find a bed for the patient at the [facility]. He is very minimally intellectually disabled but is able to understand the consequences of his decision and his own self-care needs. Patient did well throughout his hospital stay. He'll be transferred to the [facility] today. He will need regular diet, labs will include a CBC/BMP in one week. He will need PT/OT evaluation for walking and functional ability assessment tissues. Objective Vital signs: Temp Pulse Resp BP Pulse Ox 98.4 F 68 18 157/87 H 99 05/03/19 08:00 05/03/19 08:00 05/03/19 08:00 05/03/19 08:00 05/03/19 08:00 no acute distress, thin - *Routine HEENT Exam Head: Present: normocephalic Eye: Present: EOMI Comments: Absent teeth on top - *Routine Neck Exam Present: supple, JVD - Routine Chest/Breast/Axilla Exam Chest wall: Absent: tenderness Breast: Absent: tenderness - *Routine Respiratory Exam Present: CTA bilaterally. Absent: accessory muscle use - *Routine Cardiovascular Exam Present: RRR, Normal S1, Normal S2 - *Routine Abdominal Exam Present: soft, surgical scars. Absent: rebound - *Routine Extremities Exam Absent: cyanosis, clubbing, edema Comments: Pain with movement of hips, but o/w no changes -- better than prior admits DS: Diagnosis - Discharge Diagnosis (1) Back pain Status: Chronic (2) Osteoarthritis of right hip Status: Chronic (3) Failure to thrive in adult Status: Chronic (4) Pre-ulcerative calluses Status: Acute (5) Right inguinal hernia Status: Chronic (6) Severe protein-calorie malnutrition Status: Chronic Discharge Plan - Patient Discharge Instructions ACTIVITY: Continue current activity DIET: continue same diet Patient Instructions: Osteoarthritis, DI for Chronic Pain -- Adult - Follow up Plan Disposition: [facility] Home Medications: Home Medications Medication Instructions Recorded Confirmed Type Meloxicam 15 mg PO DAILY 04/30/19 04/30/19 History levoFLOXacin [Levaquin 500mg 500 mg PO DAILY 04/30/19 04/30/19 History tab] Acetaminophen [Tylenol 500mg 500 mg PO TID PRN 05/01/19 05/01/19 History tablet] Prescriptions/Medication Reconciliation: Continued Meloxicam 15 mg PO DAILY Acetaminophen [Tylenol 500mg tablet] 500 mg PO TID PRN PRN Reason: Moderate Pain Discontinued levoFLOXacin [Levaquin 500mg tab] 500 mg PO DAILY - Problem Reconciliation Problems Reviewed?: Yes
== END 2019-05-03 14:45 ==
LOC: 2ND 16:21 → ER 16:21 → 2ND 22:25
PROVIDERS: ADMIT Emergency Medicine; ATTEND Internal Medicine Adolescent Medicine
CPT/HCPCS: 72131; 80048; 80053; 81001; 83036; 85025; 85651; 86140; 96374; 97116; 97162; 99284; G0378

== ENCOUNTER 2022-01-29 10:31 | Inpatient (IN) | payer MEDICARE, MEDICAID, SELFPAY ==
--- NOTE | 2022-01-29 10:50 | PC.NURSE ---
PT arrived to the floor at this time
[2022-01-29 11:01] VITALS: BP 106/39; PULSE 72; RESP 16; TEMP 36.3; O2SAT 99; BMI 14.7
[2022-01-29 11:15] LABS: Influenza A, PCR Not Detected (NotDetected); Influenza B, PCR Not Detected (NotDetected)
--- NOTE | 2022-01-29 11:23 | XR_ITS ---
FINAL REPORT CLINICAL HISTORY: SOA, COVID + FINDINGS: The heart size is normal. Mild prominence of the thoracic aorta. CT may be considered to assess for aneurysm. Lungs are clear. There is no pleural effusion. There is no pneumothorax. The bony thorax is intact. IMPRESSION: No acute cardiopulmonary process. Recommend nonemergent CT follow-up to evaluate aortic enlargement. Reviewed, Interpreted and Dictated by William Zavala MD Transcribed by Layton Calderon Authenticated and [facility]
--- NOTE | 2022-01-29 11:58 | EXP.PHA.VTE ---
[facility] Pharmacy VTE Monitoring Patient Demographics Admission date: 01/29/22 Report Date: 01/29/22 Time: 11:59 Patient Allergies morphine Allergy (Verified 09/28/19 15:07) Unknown allergy reaction Height: 1.83 m Weight: 49.158 kg VTE Risk Clinical Trial Participant: No Prophylaxis VTE Prophylaxis Ordered?: Yes Types of VTE Prophylaxis: TEDS Knee High
[2022-01-29 12:00] VITALS: BP 119/53
[2022-01-29 12:03] LABS: Alanine Aminotransferase 32 U/L (12-78); Albumin Level 5.2 g/dl (3.5-5.0); Albumin/Globulin Ratio 1.2 (1.1-1.8); Alkaline Phosphatase 124 U/L (38-126); Anion Gap 30.5 mEq/L (5-15); Aspartate Amino Transferase 43 U/L (17-59); Bilirubin,Total 0.4 mg/dl (0.2-1.3); Calcium 8.9 mg/dl (8.4-10.2); Carbon Dioxide 15 mmol/L (22.0-30.0); Chloride 110 mmol/L (98-107); Creatinine Clearance Estimated 5 mL/min (50-200); Estimated Glomerular Filt Rate 6 ml/min (>60); GFR (African American) 7 ML/MIN (>60); Globulin 4.5 g/dL (1.3-3.2); Glucose 134 mg/dl (74-100); Potassium 4.5 mmoL/L (3.5-5.1); Total Protein,Serum 9.7 g/dl (6.3-8.2)
[2022-01-29 12:12] LABS: Coronavirus 19, PCR Detected (NotDetected)
[2022-01-29 12:12] LABS: Blood Urea Nitrogen 129 mg/dl (9-20); Sodium 151 mmol/L (136-145)
[2022-01-29 12:31] LABS: Basophils # 0.1 K/mm3 (0-0.2); Basophils % 0.4 % (0.1-2.0); Eosinophils % 0.1 % (0.1-12.0); Hematocrit 43.1 % (42.0-52.0); Hemoglobin 14.1 g/dL (14.1-18.0); Lymphocytes # 0.4 K/mm3 (0.7-4.5); Lymphocytes % 2.9 % (10-50); Mean Corpuscular HGB Conc 32.8 g/dL (31.8-35.4); Mean Corpuscular Hemoglobin 30.8 pg (27.0-31.2); Mean Corpuscular Volume 94.1 fl (80-94); Mean Platelet Volume 9.4 fl (7.4-10.4); Monocytes # 0.3 K/mm3 (0.1-1.0); Monocytes % 2.4 % (1.7-9.3); Neutrophils # 11.2 K/mm3 (1.8-7.8); Neutrophils % 94.1 % (37.0-80.0); Platelet Count 285 K/mm3 (142-424); Red Blood Count 4.58 M/mm3 (4.60-6.20); Red Cell Distribution Width 13.9 % (11.5-17.5); White Blood Count 11.9 K/mm3 (4.8-10.8)
[2022-01-29 12:33] LABS: MANUAL DIFFERENTIAL MANUAL DIFFERENTIAL (MANUAL DIFF)
[2022-01-29 12:40] LABS: D-Dimer 0.95 ug/mL (0.0-0.5)
[2022-01-29 12:41] LABS: Lymphocytes % 4 % (10-50); Monocytes % 5 % (2-9); Neutrophils % 91 % (42-76); Platelet Estimate Normal; RBC Morphology Normal; Total Cells Counted 100
--- NOTE | 2022-01-29 12:55 | PC.NURSE ---
1213 Notified Shara Mcdonnell APRN of critical sodium of 151, creatinine of 9.0 and bun 129. Shara Mcdonnell APRN stated she was going to adjust ivf orders.
--- NOTE | 2022-01-29 12:57 | ECG_ITS ---
APPROVED REPORT Exam: Resting ECG HR:75 bpm ECG Measurements Heart Rate 75 AXES IL 164 P 26 QRSd 90 QRS 27 QT 406 T 67 QTc 435 Conclusion SINUS RHYTHM NONSPECIFIC T-WAVE ABNORMALITY BORDERLINE ECG UNCONFIRMED REPORT Electronically signed by : Juanjose Mcleod MD 01/31/2022 15:59:33
[2022-01-29 13:02] VITALS: PULSE 74; PULSE 77; RESP 18; O2SAT 98
--- NOTE | 2022-01-29 13:36 | EXP.HP ---
History of Present Illness *Admission Date: 01/29/22 *Reason for visit:: weakness, N/V/D, COVID-19 *History of present illness: 76 year old male with history of dementia, HTN, OA, physical debility, severe protein calorie malnutrition and GERD who with diagnosed with COVID-19 on 01/22 presented to PCP office with increased weakness, poor PO intake, worsening confusion and N/V/D for the last week. In office he was found to be hypotensive and hypoxic. Patient direct admitted for IV abx and further evaluation. Labs BUN/Creatinine 129/9. Aggressive IV hydration was initiated. Of note- on admission to [facility] in 2019 patient signed a DNR. At this time there is some confusion about who his POA is and what his code status is at this time. [facility] Medical History (Updated 01/29/22 @ 13:52 by Keisha Feliciano APRN) COVID-19 Failure to thrive Osteoarthritis Surgical History H/O hernia repair Family History No significant family history Social History Smoking Status: Former smoker alcohol intake: never current occupational status: retired Travel in the last 8 weeks: None household members: family Review of Systems Review of Systems Review of systems:: pertinent systems reviewed and negative unless documented below Constitutional Constitutional: Reports body ache(s), Reports fatigue, Reports malaise and Reports weight loss *Respiratory Respiratory: Reports cough *Gastrointestinal Gastrointestinal: Reports as per HPI, Reports nausea and Reports vomiting *Neurologic Neurologic: Reports confusion Psychiatric Psychiatric: Reports confusion Endocrine Endocrine: Reports fatigue Meds Home Medications and Allergies Home Medications Medication Instructions Recorded Confirmed Type meloxicam 15 mg tablet 15 mg PO DAILY pain/inflammation 04/30/19 01/29/22 History acetaminophen 500 mg tablet 500 mg PO TID PRN Moderate Pain 05/01/19 05/01/19 History hydroxyzine HCl 10 mg tablet 10 mg PO QHS 09/28/19 09/28/19 History lorazepam 0.5 mg tablet 0.5 mg PO DAILY PRN 09/28/19 09/28/19 History mirtazapine 15 mg tablet (Remeron) 15 mg PO HS Depression 09/28/19 01/29/22 History omeprazole 20 mg capsule,delayed 20 mg PO DAILY acid reflux 01/29/22 01/29/22 History release New Prescriptions to Start Prescriptions: Allergies Allergy/AdvReac Type Severity Reaction Status Date / Time morphine Allergy Unknown Verified 09/28/19 15:07 allergy reaction Exam Data for Last 24 hours Vital signs and Labs for Last 24 Hours: Temp Pulse Resp BP Pulse Ox 97.4 F L 74 18 119/53 L 98 01/29/22 11:01 01/29/22 13:02 01/29/22 13:02 01/29/22 12:00 01/29/22 13:02 Laboratory Results - last 24 hr 01/29/22 10:51: SARS-CoV-2 (PCR) Detected A, Influenza A Untype (PCR) Not detected, Influenza Type B (PCR) Not detected 01/29/22 11:15: WBC 11.9 H, RBC 4.58 L, Hgb 14.1, Hct 43.1, MCV 94.1 H, MCH 30.8, MCHC 32.8, RDW 13.9, Plt Count 285, MPV 9.4, Neut % (Auto) 94.1 H, Lymph % (Auto) 2.9 L, [place] % (Auto) 2.4, Eos % (Auto) 0.1, Baso % (Auto) 0.4, Neut # (Auto) 11.2 H, Lymph # (Auto) 0.4 L, [place] # (Auto) 0.3, Eos # (Auto) 0.0, Baso # (Auto) 0.1, Total Counted 100, Neutrophils % (Manual) 91 H, Lymphocytes % (Manual) 4 L, Monocytes % (Manual) 5, Platelet Estimate Normal, RBC Morphology Normal 01/29/22 11:15: Sodium 151 H*, Potassium 4.5, Chloride 110 H, Carbon Dioxide 15 L, Anion Gap 30.5 H, BUN 129 H*, Creatinine 9.00 H, Estimated Creat Clear 5, Estimated GFR 6 L*, Est GFR ( Amer) 7 L*, Glucose 134 H, Calcium 8.9, Total Bilirubin 0.4, AST 43, ALT 32, Alkaline Phosphatase 124, Total Protein 9.7 H, Albumin 5.2 H, Globulin 4.5 H, Albumin/Globulin Ratio 1.2 01/29/22 11:53: D-Dimer 0.95 H I & O for Last 24 hours: Intake & Output 01/27/22 01/28/22 01/29/22 09
--- NOTE | 2022-01-29 14:48 | XR_ITS ---
FINAL REPORT CLINICAL HISTORY: hammertoes, callus, osteoarthritis FINDINGS: RIGHT FOOT Three views of the right foot demonstrate no acute fracture or dislocation. There is generalized osteopenia. There is mild calcaneal spurring. Hammertoe deformities of the 2nd through 5th digits limit visualization of the interphalangeal joints. There is mild osteoarthritic disease of the interphalangeal joints. The soft tissues are unremarkable. IMPRESSION: No acute bony abnormality. Hammertoe deformities of digits 2 through 5 with mild osteoarthritic disease of the interphalangeal joints. Reviewed, Interpreted and Dictated by William Zavala MD Transcribed by Janie Martin Authenticated and [facility]
--- NOTE | 2022-01-29 14:51 | XR_ITS ---
FINAL REPORT CLINICAL HISTORY: hammertoes, callus, osteoarthritis FINDINGS: LEFT FOOT Three views of the left foot demonstrate no acute fracture or dislocation. There is generalized osteopenia. There is mild calcaneal spurring. Hammertoe deformities of the 2nd through 5th digits limit visualization of the interphalangeal joints. There is mild osteoarthritic disease of the interphalangeal joints. The soft tissues are unremarkable. IMPRESSION: No acute bony abnormality. Hammertoe deformities of digits 2 through 5 with mild osteoarthritic disease of the interphalangeal joints. Reviewed, Interpreted and Dictated by William Zavala MD Transcribed by Janie Martin Authenticated and [facility]
--- NOTE | 2022-01-29 15:00 | PC.NURSE ---
Spoke with Prasanth Powell whom i was told was poa, he stated he didnt even know if pt had a poa after prior stating he was poa. Althoigh, living will was provided. Have attempted to call Pauline Lam x 3 times. Two times this am when pt arrived to floor @ 1045 and just now @ 1501. Pt a/o x 2. Podiatry consult ordered. Bed alarm in use for safety. Bp stable and sats 100% on RA. Toes are dirty and very long.
[2022-01-29 16:00] VITALS: BP 113/71; PULSE 64; RESP 20; TEMP 36.2; O2SAT 99
[2022-01-29 18:01] LABS: Chloride 113 mmol/L (98-107); Sodium 149 mmol/L (136-145)
[2022-01-29 18:02] LABS: Potassium 4.6 mmoL/L (3.5-5.1)
[2022-01-29 18:05] LABS: Anion Gap 24.6 mEq/L (5-15); Calcium 7.7 mg/dl (8.4-10.2); Carbon Dioxide 16 mmol/L (22.0-30.0); Creatinine Clearance Estimated 6 mL/min (50-200); Estimated Glomerular Filt Rate 8 ml/min (>60); GFR (African American) 9 ML/MIN (>60); Glucose 90 mg/dl (74-100)
[2022-01-29 18:07] LABS: Blood Urea Nitrogen 112 mg/dl (9-20)
--- NOTE | 2022-01-29 18:07 | PC.NURSE ---
Shara Mcdonnell APRN notified at this time of BUN of 112 and CREATININE of 7.0 @ 1806.
[2022-01-29 18:10] VITALS: PULSE 72; PULSE 80; O2SAT 98
--- NOTE | 2022-01-29 18:32 | EXP.ORTH.CON ---
Documented by User: Anamika Aguilera APRN 01/29/22 19:13 History of Present Illness *Admission Date: 01/29/22 *Reason for visit:: Weakness, N/v/D, COVID-19 *History of present illness: The patient is a 76 year old male with history of dementia, who was recently diagnosed with COVID-19 on 01/22/22, presented to PCP office with increased weakness, poor PO intake, worsening confusion and N/V/D for the last week. In office he was found to be hypotensive and hypoxic. Patient was directly admitted for IV abx and further evaluation. PCP team consulted podiatry for toenail trimming. We obtained b/l feet 3V x-ray to r/o underlying bony abnormalities prior to toenail trimming. B/l feet x-ray results reviewed by it revealed no acute bony abnormalities. Patient was resting in bed awake, non verbal. Toenails 1-[address] [facility] Medical History (Updated 01/29/22 @ 18:40 by Anamika Aguilera APRN) COVID-19 Failure to thrive Osteoarthritis Surgical History H/O hernia repair Family History No significant family history Social History Smoking Status: Former smoker alcohol intake: never current occupational status: retired Travel in the last 8 weeks: None household members: family Review of Systems *Neurologic Neurologic: Reports confusion Psychiatric Psychiatric: Reports confusion Meds Home Medications and Allergies Home Medications Medication Instructions Recorded Confirmed Type meloxicam 15 mg tablet 15 mg PO DAILY pain/inflammation 04/30/19 01/29/22 History acetaminophen 500 mg tablet 500 mg PO TID PRN Moderate Pain 05/01/19 05/01/19 History hydroxyzine HCl 10 mg tablet 10 mg PO QHS 09/28/19 09/28/19 History lorazepam 0.5 mg tablet 0.5 mg PO DAILY PRN 09/28/19 09/28/19 History mirtazapine 15 mg tablet (Remeron) 15 mg PO HS Depression 09/28/19 01/29/22 History omeprazole 20 mg capsule,delayed 20 mg PO DAILY acid reflux 01/29/22 01/29/22 History release New Prescriptions to Start Prescriptions: Allergies Allergy/AdvReac Type Severity Reaction Status Date / Time morphine Allergy Unknown Verified 09/28/19 15:07 allergy reaction Ortho Exam (Inpt) Vital signs and Labs for Last 24 Hours: Temp Pulse Resp BP Pulse Ox 97.2 F L 72 20 113/71 98 01/29/22 16:00 01/29/22 18:10 01/29/22 16:00 01/29/22 16:00 01/29/22 18:10 Laboratory Results - last 24 hr 01/29/22 10:51: SARS-CoV-2 (PCR) Detected A, Influenza A Untype (PCR) Not detected, Influenza Type B (PCR) Not detected 01/29/22 11:15: WBC 11.9 H, RBC 4.58 L, Hgb 14.1, Hct 43.1, MCV 94.1 H, MCH 30.8, MCHC 32.8, RDW 13.9, Plt Count 285, MPV 9.4, Neut % (Auto) 94.1 H, Lymph % (Auto) 2.9 L, [place] % (Auto) 2.4, Eos % (Auto) 0.1, Baso % (Auto) 0.4, Neut # (Auto) 11.2 H, Lymph # (Auto) 0.4 L, [place] # (Auto) 0.3, Eos # (Auto) 0.0, Baso # (Auto) 0.1, Total Counted 100, Neutrophils % (Manual) 91 H, Lymphocytes % (Manual) 4 L, Monocytes % (Manual) 5, Platelet Estimate Normal, RBC Morphology Normal 01/29/22 11:15: Sodium 151 H*, Potassium 4.5, Chloride 110 H, Carbon Dioxide 15 L, Anion Gap 30.5 H, BUN 129 H*, Creatinine 9.00 H, Estimated Creat Clear 5, Estimated GFR 6 L*, Est GFR ( Amer) 7 L*, Glucose 134 H, Calcium 8.9, Total Bilirubin 0.4, AST 43, ALT 32, Alkaline Phosphatase 124, Total Protein 9.7 H, Albumin 5.2 H, Globulin 4.5 H, Albumin/Globulin Ratio 1.2 01/29/22 11:53: D-Dimer 0.95 H 01/29/22 17:45: Sodium 149 H, Potassium 4.6, Chloride 113 H, Carbon Dioxide 16 L, Anion Gap 24.6 H, BUN 112 H*, Creatinine 7.00 H D, Estimated Creat Clear 6, Estimated GFR 8 L*, Est GFR ( Amer) 9 L* D, Glucose 90 D, Calcium 7.7 L I & O for Labs for Last 24 Hours: Intake & Output 01/26/22 01/27/22 01/28/22 01/29/22 23:59 23:59 23:59 23:59 Intake Total 2032 Balance
--- NOTE | 2022-01-29 19:23 | PC.NURSE ---
Received order for lovenox and pharmacy recommended heparin r/t renal function. Shara Mcdonnell APRN aware and jeff'd. Pt's toenails trimmed per podiatry. This RN did also shower pt. Pt refused oral care, stated his mouth was sore. Dental carries noted. VSS.
[2022-01-29 20:00] VITALS: BP 100/56; PULSE 71; RESP 20; TEMP 36.8; O2SAT 100
--- NOTE | 2022-01-29 20:02 | PC.WOUNDNOTE ---
Pt verbalized ok to take image, podiatry consulted.
[2022-01-30] VITALS (10 sets, daily range): BP systolic 96–113; BP diastolic 50–78; PULSE 56–87; RESP 16–17; TEMP 36.6–37.1; O2SAT 98–100; BMI 14.8
--- NOTE | 2022-01-30 05:03 | PC.NURSE ---
pt has rested well t/o the shift. ambulated to and from bathroom with assist X1 using walker. no report of pain or SOA. bed alarm is on and functioning. CB in reach.
[2022-01-30 07:02] LABS: Basophils % 0.3 % (0.1-2.0); Eosinophils # 0.1 K/mm3 (0.0-0.4); Eosinophils % 0.8 % (0.1-12.0); Lymphocytes # 0.9 K/mm3 (0.7-4.5); Lymphocytes % 14.3 % (10-50); Mean Corpuscular HGB Conc 33.6 g/dL (31.8-35.4); Mean Corpuscular Hemoglobin 31.3 pg (27.0-31.2); Mean Corpuscular Volume 93.1 fl (80-94); Mean Platelet Volume 9.9 fl (7.4-10.4); Monocytes # 0.4 K/mm3 (0.1-1.0); Monocytes % 6.2 % (1.7-9.3); Neutrophils % 78.4 % (37.0-80.0); Platelet Count 189 K/mm3 (142-424); Red Blood Count 3.43 M/mm3 (4.60-6.20); Red Cell Distribution Width 13.8 % (11.5-17.5); White Blood Count 6.4 K/mm3 (4.8-10.8)
[2022-01-30 07:03] LABS: Anion Gap 22.1 mEq/L (5-15); Carbon Dioxide 15 mmol/L (22.0-30.0); Chloride 116 mmol/L (98-107); Creatinine Clearance Estimated 8 mL/min (50-200); Estimated Glomerular Filt Rate 10 ml/min (>60); GFR (African American) 12 ML/MIN (>60); Glucose 74 mg/dl (74-100); Hemoglobin 10.8 g/dL (14.1-18.0); Potassium 4.1 mmoL/L (3.5-5.1); Sodium 149 mmol/L (136-145)
[2022-01-30 07:07] LABS: Blood Urea Nitrogen 105 mg/dl (9-20)
--- NOTE | 2022-01-30 08:15 | EXP.PN ---
Subjective *Date: 01/30/22 *Time: 08:29 Interval history: Patient is awake, alert, responsive. Complains that his mouth is sore and also that he is cold. Vital signs have been stable. Nurses report that he is much more alert. Exam Data for Last 24 hours Vital signs and Labs for Last 24 Hours: Temp Pulse Resp BP Pulse Ox 97.8 F 65 16 111/78 99 01/30/22 07:39 01/30/22 07:39 01/30/22 07:39 01/30/22 07:39 01/30/22 07:39 Laboratory Results - last 24 hr 01/29/22 10:51: SARS-CoV-2 (PCR) Detected A, Influenza A Untype (PCR) Not detected, Influenza Type B (PCR) Not detected 01/29/22 11:15: WBC 11.9 H, RBC 4.58 L, Hgb 14.1, Hct 43.1, MCV 94.1 H, MCH 30.8, MCHC 32.8, RDW 13.9, Plt Count 285, MPV 9.4, Neut % (Auto) 94.1 H, Lymph % (Auto) 2.9 L, [place] % (Auto) 2.4, Eos % (Auto) 0.1, Baso % (Auto) 0.4, Neut # (Auto) 11.2 H, Lymph # (Auto) 0.4 L, [place] # (Auto) 0.3, Eos # (Auto) 0.0, Baso # (Auto) 0.1, Total Counted 100, Neutrophils % (Manual) 91 H, Lymphocytes % (Manual) 4 L, Monocytes % (Manual) 5, Platelet Estimate Normal, RBC Morphology Normal 01/29/22 11:15: Sodium 151 H*, Potassium 4.5, Chloride 110 H, Carbon Dioxide 15 L, Anion Gap 30.5 H, BUN 129 H*, Creatinine 9.00 H, Estimated Creat Clear 5, Estimated GFR 6 L*, Est GFR ( Amer) 7 L*, Glucose 134 H, Calcium 8.9, Total Bilirubin 0.4, AST 43, ALT 32, Alkaline Phosphatase 124, Total Protein 9.7 H, Albumin 5.2 H, Globulin 4.5 H, Albumin/Globulin Ratio 1.2 01/29/22 11:53: D-Dimer 0.95 H 01/29/22 17:45: Sodium 149 H, Potassium 4.6, Chloride 113 H, Carbon Dioxide 16 L, Anion Gap 24.6 H, BUN 112 H*, Creatinine 7.00 H D, Estimated Creat Clear 6, Estimated GFR 8 L*, Est GFR ( Amer) 9 L* D, Glucose 90 D, Calcium 7.7 L 01/30/22 06:45: WBC 6.4 D, RBC 3.43 L D, Hgb 10.8 L D, Hct 32.0 L, MCV 93.1, MCH 31.3 H, MCHC 33.6, RDW 13.8, Plt Count 189 D, MPV 9.9, Neut % (Auto) 78.4, Lymph % (Auto) 14.3, [place] % (Auto) 6.2, Eos % (Auto) 0.8, Baso % (Auto) 0.3, Neut # (Auto) 5.0, Lymph # (Auto) 0.9, [place] # (Auto) 0.4, Eos # (Auto) 0.1, Baso # (Auto) 0.0 01/30/22 06:45: Sodium 149 H, Potassium 4.1, Chloride 116 H, Carbon Dioxide 15 L, Anion Gap 22.1 H, BUN 105 H*, Creatinine 5.60 H, Estimated Creat Clear 8, Estimated GFR 10 L*, Est GFR ( Amer) 12 L* D, Glucose 74, Calcium 8.0 L I & O for Last 24 hours: Intake & Output 01/27/22 01/28/22 01/29/22 01/30/22 11:59 11:59 11:59 11:59 Intake Total 2333 / 2333 Output Total 300 / 300 Balance 2032 Weight 108 lb 6 oz 110 lb Constitutional Constitutional: cachectic, chronically ill appearing and disheveled Comments: Alert, pleasant. Oriented x1. Very poor oral dentition with some thrush lesions. Heart rate regular. Lungs clear. Abdomen soft, no edema, skin turgor is improving. Foot exam per podiatry Assessment and Plan *Assessment and plan (1) ARF (acute renal failure): Status: Acute Category: Medical Code(s): N17.9 - Acute kidney failure, unspecified (2) Severe protein-calorie malnutrition: Status: Acute Category: Medical Code(s): E43 - Unspecified severe protein-calorie malnutrition (3) Dementia: Status: Acute Qualifiers: Dementia type: unspecified type Category: Medical Code(s): F03.90 - Unspecified dementia without behavioral disturbance (4) GERD (gastroesophageal reflux disease): Status: Acute Category: Medical Code(s): K21.9 - Gastro-esophageal reflux disease without esophagitis (5) COVID-19: Status: Acute Category: Medical Code(s): U07.1 - COVID-19 Plan Acute kidney injury is improving. Continue low-dose IV fluids. Continue current antibiotics given his high risk of sepsis. If cultures negative tomorrow we will stop these. PT/OT evaluation. Patient would clearly benefit from long-term care facility given his poor self-care activities.
--- NOTE | 2022-01-30 09:53 | HMH.OTEV ---
OT Inpatient Evaluation Rehab OT IP Evaluation Start: 01/30/22 08:18 Freq: ONCE Status: Complete Protocol: Document 01/30/22 09:47 [facility] (Rec: 01/30/22 09:53 [facility] [id number]) Rehab OT IP Assessment Subjective History Pt oriented x 3 on arrival. Pt agreeable to engage in therapy evaluation. Pt was a direct admitt from Dr. Hart office due to COVID, weakness , and N/V/D. Pt was unable to provide significant information about prior level of function. He claims he was independent with all ADLs such as dressing, bathing, and feeding. However, he was dependent on others for IADLs. He was unable to recall who he was living with prior. Nursing reports he was living with his nephew before being in the hospital. Pt did use a walker during ambulation. The following information was copied from history and physical report: 76 year old male with history of dementia, HTN, OA, physical debility, severe protein calorie malnutrition and GERD who with diagnosed with COVID- 19 on 01/22 presented to PCP office with increased weakness , poor PO intake, worsening confusion and N/V/D for the last week. In office he was found to be hypotensive and hypoxic. Patient direct admitted for IV abx and further evaluation. Subjective My mouth hurt. Pt resting in bed. Pt required min assist to go from supine to sitting at eob. Pt required max assist to complete sit to stand from bed . Pt sat back down at eob with max assist. Pt required min assist to go from sitting to supine in bed. Pt was left
--- NOTE | 2022-01-30 10:02 | SW/DCPLANNER ---
Addendum entered by Carmelina Campo 01/31/22 09:28: This patient has been accepted to [facility] level of care and will discharge today. Patient does not need an additional COVID swab prior to discharge. Addendum entered by Carmelina Campo 01/30/22 15:38: Family has requested that patient information also be faxed to [facility]/ [facility]. Mia is currently reviewing patient information. Patient's family stated that if [facility] can not accept patient they want to go to [place]. Addendum entered by Carmelina Campo 01/30/22 11:29: [facility] has stated that she can accept this patient once medically stable for discharge. I will update patient's family. Original Note: I spoke with patient's sister (Pauline Lam [phone]) regarding plans once patient is medically stable for discharge. Pauline stated that patient resides at home with his great nephew. I explained to Pauline that PT/OT have evaluated this patient and recommended placement at this time. Pauline stated that patient has been to [facility] in the past and she would prefer him to return to this facility for rehab. Patient information will be faxed to [facility]. Discharge date is unknown at this time.
--- NOTE | 2022-01-30 12:35 | HMH.PTEV ---
Physical Therapy Evaluation Rehab PT IP Evaluation Start: 01/30/22 08:18 Freq: ONCE Status: Active Protocol: Document 01/30/22 12:31 CHRISTIANO (Rec: 01/30/22 12:35 CHRISTIANO [id number]) Subjective/History History History This is the initial IP PT evaluation for Sky Powell. Pt is a 76 y/o male admitted to [facility] from ED for increased weakness, confusion, and decline in function. Subjective Subjective Pt reports he lives in house w / family (son/daughter) - pt reports he would like to get up and use restroom Rehab PT IP Eval Objective Appearance Patient Behavior Appropriate,Cooperative Patient Orientation Place,Name,Birthday,Year, Situation Difficulty following instructions none Speech Pattern Appropriate Ambulation Patient Able to Ambulate Yes Ambulation Observation IP General Gait Pattern Observation Shuffling Step Ambulation Distance (feet) 45 Ambulation Assistive Device Rolling Walker Ambulation Ability Contact Guard/Hand Hold Balance Ability to Arise Able, uses arms to help Sitting Balance Steady, safe Standing Balance Unsteady Dynamic Sitting Balance Ability Good Dynamic Standing Balance Ability Poor Transfers Bed Transfer Ability Supervision/Stand by Chair Transfer Ability Supervision/Stand by Sit to Stand Bed Transfer Ability Contact Guard/Hand Hold Sit to Stand Chair Transfer Ability Contact Guard/Hand Hold Rehab PT IP prob,goals,plan Problems Date of Evaluation: 01/30/22 PT IP Problems Transfers,Gait,Balance,Self care,Safety Rehab Potential Rehab Potential Fair Equipment Needs Assistive Devices Rolling / Wheeled Walker Plan PT Intervention Plan Transfers,Gait,Balance,Self care,Safety,Therapeutic Exercise PT Plan Frequency BID Duration LOS Discharge Goals Bed Transfer Ability Supervision/Stand by Sit to Stand Chair Transfer Ability Contact Guard/Hand Hold Ambulation Assistive Device Rolling Walker Ambulation Distance (feet) 50 Discharge Plan PT Discharge Plan Pt would benefit from skilled rehab while in [facility], and continue to benefit from skilled therapy upon DC. Pt's best interest would be served
--- NOTE | 2022-01-30 16:14 | PC.NURSE ---
Dr. Mcleod made aware of critical BUN and CREATININE this am upon rounds. Pt remains stable. Has been up to chair this shift. CB in reach. Magic mouth was given per jul and pt states relief of mouth soreness. No acute changes since previous assessment.
[2022-01-31] VITALS: BP 105/60; PULSE 63; RESP 18; O2SAT 100
[2022-01-31 00:51] VITALS: PULSE 74; PULSE 85
[2022-01-31 04:00] VITALS: BP 124/70; PULSE 64; RESP 18; TEMP 36.6; O2SAT 98
--- NOTE | 2022-01-31 04:47 | PC.NURSE ---
no acute change since previous assessment. pt has ambulated to and from bathroom with assistance and walker. no reports of pain or SOA. O2 sats 100% on RA. CB in reach
[2022-01-31 05:05] VITALS: PULSE 63; PULSE 66
[2022-01-31 05:39] VITALS: BMI 15.6
[2022-01-31 06:57] LABS: Basophils % 0.6 % (0.1-2.0); Eosinophils # 0.1 K/mm3 (0.0-0.4); Eosinophils % 1.7 % (0.1-12.0); Hematocrit 32.5 % (42.0-52.0); Hemoglobin 10.5 g/dL (14.1-18.0); Lymphocytes # 0.8 K/mm3 (0.7-4.5); Lymphocytes % 14.6 % (10-50); Mean Corpuscular HGB Conc 32.2 g/dL (31.8-35.4); Mean Corpuscular Hemoglobin 31.2 pg (27.0-31.2); Mean Corpuscular Volume 96.8 fl (80-94); Mean Platelet Volume 9.3 fl (7.4-10.4); Monocytes # 0.3 K/mm3 (0.1-1.0); Monocytes % 5.3 % (1.7-9.3); Neutrophils # 4.3 K/mm3 (1.8-7.8); Neutrophils % 77.9 % (37.0-80.0); Platelet Count 178 K/mm3 (142-424); Red Blood Count 3.35 M/mm3 (4.60-6.20); Red Cell Distribution Width 13.8 % (11.5-17.5); White Blood Count 5.6 K/mm3 (4.8-10.8)
[2022-01-31 07:09] LABS: Anion Gap 15.7 mEq/L (5-15); Blood Urea Nitrogen 72 mg/dl (9-20); Calcium 7.8 mg/dl (8.4-10.2); Carbon Dioxide 17 mmol/L (22.0-30.0); Chloride 122 mmol/L (98-107); Creatinine Clearance Estimated 15 mL/min (50-200); Estimated Glomerular Filt Rate 19 ml/min (>60); GFR (African American) 23 ML/MIN (>60); Glucose 86 mg/dl (74-100); Potassium 3.7 mmoL/L (3.5-5.1)
[2022-01-31 07:12] LABS: Sodium 151 mmol/L (136-145)
--- NOTE | 2022-01-31 07:19 | HMH.PHAINT1 ---
Pharmacy Intervention Comments: MEDICATION RECONCILIATION COMPLETED ON PATIENT USING EXTERNAL FILL HISTORY FROM PHARMACY. -JOSHUA HOUSER, HARINID
[2022-01-31 07:36] VITALS: BP 134/76; PULSE 78; RESP 16; TEMP 36.8; O2SAT 98
--- NOTE | 2022-01-31 09:04 | EXP.DC.SUM ---
General Admission date:: 01/29/22 Discharge date: 01/31/22 HPI HPI HPI: The patient is a 76 year old male with history of dementia, who was recently diagnosed with COVID-19 on 01/22/22, presented to PCP office with increased weakness, poor PO intake, worsening confusion and N/V/D for the last week. In office he was found to be hypotensive and hypoxic. Patient was directly admitted for IV abx and further evaluation. PCP team consulted podiatry for toenail trimming. We obtained b/l feet 3V x-ray to r/o underlying bony abnormalities prior to toenail trimming. B/l feet x-ray results reviewed by it revealed no acute bony abnormalities. Patient was resting in bed awake, non verbal. Toenails 1-10 trimmed. Hospital Course Hospital Course Hospital Course: Patient was admitted, initiated on IV antibiotics given his high infection risk. White count was slightly elevated but cultures were negative throughout his hospital stay and he had no fevers. Podiatry consulted on his significant toenail deformity-please see their notes. Acute kidney injury was treated with IV fluids, and this is on the road to resolution with creatinine coming down to the 3 range today down from a high of 9. He remains hyponatremic but this is stable. Patient has bumped up is eating and drinking well. PT and OT evaluated him, felt that he would benefit from skilled care stay for aggressive therapy and he will be transferred to long-term care today to continue this. Please note he will need to push p.o. fluids especially clear liquids. Diet is a soft mechanical as tolerated diet. No need PT/OT/dietary consult. Please note that you will need a BMP in 2 days, on February 02 to follow the improvement of his kidney disease and his sodium. Please note that he maintains a DNR status and we will continue to respect this at the longer care facility. Exam Data for Last 24 hours Vital signs and Labs for Last 24 Hours: Temp Pulse Resp BP Pulse Ox 98.2 F 78 16 134/76 98 01/31/22 07:36 01/31/22 07:36 01/31/22 07:36 01/31/22 07:36 01/31/22 07:36 Laboratory Results - last 24 hr 01/31/22 05:51: WBC 5.6, RBC 3.35 L, Hgb 10.5 L, Hct 32.5 L, MCV 96.8 H, MCH 31.2, MCHC 32.2, RDW 13.8, Plt Count 178, MPV 9.3, Neut % (Auto) 77.9, Lymph % (Auto) 14.6, [place] % (Auto) 5.3, Eos % (Auto) 1.7, Baso % (Auto) 0.6, Neut # (Auto) 4.3, Lymph # (Auto) 0.8, [place] # (Auto) 0.3, Eos # (Auto) 0.1, Baso # (Auto) 0.0 01/31/22 05:51: Sodium 151 H*, Potassium 3.7, Chloride 122 H, Carbon Dioxide 17 L, Anion Gap 15.7 H, BUN 72 H D, Creatinine 3.20 H D, Estimated Creat Clear 15, Estimated GFR 19 L*, Est GFR ( Amer) 23 L D, Glucose 86, Calcium 7.8 L I & O for Last 24 hours: Intake & Output 01/28/22 01/29/22 01/30/22 01/31/22 11:59 11:59 11:59 11:59 Intake Total 2333 / 2333 3000 / 3000 Output Total 825 / 825 1250 / 1250 Balance 1508 / 1508 1750 / 1750 Weight 108 lb 6 oz 110 lb 115 lb 6 oz Constitutional Constitutional: no acute distress, thin and chronically ill appearing *Routine HEENT Exam Head: Present normocephalic Eye: Present EOMI and PERRL ENT: Present mucous membranes moist *Routine Neck Exam Neck: Present supple; Absent lymphadenopathy *Routine Respiratory Exam Respiratory: Present CTA bilaterally *Routine Cardiovascular Exam Cardiovascular: Present RRR *Routine Abdominal Exam Abdominal: Present soft and normoactive bowel sounds; Absent tenderness *Routine Extremities Exam Extremities: Absent cyanosis, clubbing or edema *Routine Skin Exam Skin: Present warm; Absent rash *Routine Neurological Exam Neurological: Present alert Comments: No focal deficits, patient is pleasant, cognitively impaired but oriented x2 Results Data Completed and Pending Labs on day of discharge: Labs from last 24 hours 01/31/22 01/31/22 05:51 05:51 WBC 5.6 RBC 3.35 L Hgb 10.5 L Hct 32.5 L MCV 96.8 H MCH 31.2 MCHC 32.2 RDW 13.8 Plt Count
[2022-01-31 10:51] VITALS: BP 112/77; PULSE 72; RESP 17; TEMP 36.4; O2SAT 97
--- NOTE | 2022-01-31 10:55 | PC.NURSE ---
tried calling report to [facility]. room not ready, waiting on a call back.
--- NOTE | 2022-01-31 11:12 | PC.NURSE ---
called report to [facility]. waiting on a call back to see if pt needs to go by ambulance or [facility] personal transport bus, also still working on pts room.
--- NOTE | 2022-02-01 14:06 | CARE MANAGER ---
Contacted [facility]. They state patient is doing very well. Deny any questions or concerns ANGELIA Reyes
== END 2022-01-31 15:16 | DRG 177 ==
PROVIDERS: Nurse Practitioner Family; Admitting Provider Internal Medicine Adolescent Medicine; PCP Internal Medicine Adolescent Medicine; Visit Provider Internal Medicine Adolescent Medicine
DX: E43 Unspecified severe protein-calorie malnutrition (principal); N17.9 Acute kidney failure, unspecified; U07.1 COVID-19; Z68.1 Body mass index [BMI] 19.9 or less, adult; F03.90 Unspecified dementia, unspecified severity, without behavioral disturbance, psychotic disturbance, mood disturbance, and anxiety; K21.9 Gastro-esophageal reflux disease without esophagitis; L60.2 Onychogryphosis; M20.41 Other hammer toe(s) (acquired), right foot; M20.42 Other hammer toe(s) (acquired), left foot; M19.071 Primary osteoarthritis, right ankle and foot; M19.072 Primary osteoarthritis, left ankle and foot; L84 Corns and callosities; M20.11 Hallux valgus (acquired), right foot; M20.12 Hallux valgus (acquired), left foot; L60.3 Nail dystrophy; L60.0 Ingrowing nail; R62.7 Adult failure to thrive; Z87.891 Personal history of nicotine dependence
CPT/HCPCS: 36415; 71045; 73630; 80048; 80053; 85007; 85025; 85378; 87040; 93005; 94640; 97162; 97166; 97530; C9803; J0456; J0696; U0003; U0005

== ENCOUNTER 2023-07-02 16:12 | Outpatient (CLI) | payer MEDICARE, MEDICAID, SELFPAY ==
--- NOTE | 2023-07-02 16:43 | XR_ITS ---
FINAL REPORT CLINICAL HISTORY: LEFT WRIST PAIN FINDINGS: AP, oblique, and lateral views of the left wrist were obtained. There is no prior exam for comparison. There is no acute fracture or dislocation. There is a small calcification adjacent to the distal scaphoid, likely chronic. There is multi joint degenerative disease, most pronounced at the radiocarpal joint. IMPRESSION: Multi joint degenerative disease. Reviewed, Interpreted and Dictated by Rupal Diaz MD Transcribed by Arlene Lizarraga Authenticated and [facility] [place]
--- NOTE | 2023-07-02 16:43 | XR_ITS ---
FINAL REPORT CLINICAL HISTORY: LEFT WRIST PAIN FINDINGS: AP, oblique and lateral views of the left thumb were obtained. There is no prior exam for comparison. There is no acute fracture or dislocation. There is multi joint degenerative disease. There is diffuse soft tissue edema of the thumb. IMPRESSION: Soft tissue edema without acute bony abnormality. Reviewed, Interpreted and Dictated by Rupal Diaz MD Transcribed by Arlene Lizarraga Authenticated and [facility]
== END 2023-07-02 23:59 ==
PROVIDERS: PCP Internal Medicine Adolescent Medicine; Visit Provider Internal Medicine Adolescent Medicine
DX: M25.532 Pain in left wrist (principal); M79.645 Pain in left finger(s)
CPT/HCPCS: 73110; 73140

== ENCOUNTER 2024-06-09 09:22 | Emergency (ER) | payer MEDICARE, MEDICAID, SELFPAY ==
[2024-06-09 09:55] VITALS: BP 147/78; PULSE 71; RESP 19; TEMP 36.6; O2SAT 98; BMI 16.4
--- NOTE | 2024-06-09 10:13 | EXP.UTC ---
Discharge Plan Disposition Patient Disposition: Home, Self-Care Condition: Good Prescriptions Prescriptions: New Clearcanal Earwax Softener 6.5 % drops 5 drp Ear-Both Q12H 4 Days Qty: 15 0RF Rx Instructions: in both ears as directed for 4 days amoxicillin 500 mg capsule 500 mg PO BID 7 Days Qty: 14 0RF No Action donepezil 5 mg tablet 5 mg PO HS Patient Comments: TAKE 1 TABLET BY MOUTH ONCE A DAY AT BEDTIME mirtazapine 15 mg tablet 15 mg PO HS Patient Comments: TAKE 1 TABLET BY MOUTH EVERY DAY AT BEDTIME Referrals Follow up/Referrals: Juanjose Mcleod MD [Primary Care Provider] - See instructions Activity Restrictions/Add. Instructions Additional Instructions/Restrictions: *Monitor Temp, Over the counter Motrin or Tylenol as directed/as needed Tylenol every 4 hours and Motrin every 6 hours (as long as your family doctor has told you that you can take it) for fever or pain. and straight to ER if unable to lower temp less than 101.0 after medication given *Warm salt water gargles may help to soothe the throat *Throat Lozenges? *Warm fluids like tea with honey may help to soothe the throat? *Sleep elevated *Humidifier/Vaporizer Use ear drops as directed for 4 days to break up ear wax Take antibitoics as prescribed Your throat swab was sent for culture. Those results are typically sent to your primary care. Be sure to follow up in 2-3 days with your family doctor/primary care physician if no improvement so they can review those result and treat if necessary. If you don?t have a primary care doctor, I recommend you get one but in the mean time, you will have to return to a walk in clinic Follow up IMMEDIATELY for new or worsening symptoms or no Noticeable improvement over the next 48-72 hours. 911 for difficulty breathing or swallowing Clinical Impressions Clinical Impression: Otitis media Instructions Patient Instructions: Middle Ear Infection, Amoxicillin Print Language Print Language: Icelandic Discharge ED Provider: Laura Veliz [facility] [place] HPI General Stated complaint: sore throat pop/crack in both ears Mode of Arrival: Ambulatory Source of Information: Patient Limitations: No Limitations Time Seen by Provider: 06/09/24 10:15 Description of Symptoms (Recalled from Triage Doc. by RN): PATEINT C/O SORE THROAT AND POPPING/CRACKING TO BILATERAL EARS X 6 DAYS HEENT Symptoms (Recalled from RN notes): Yes Resp Symptoms (Recalled from RN notes): No Skin Symptoms (Recalled from RN notes): No MS Symptoms (Recalled from RN notes): No Functional Status (Recalled from RN notes): WNL History of Present Illness Provider Complaint: Patient states that his ears has been popping and cracking and hurting along with sore throat for the last 6 days States today it was bothering him more so he came in to get checked Related Data Home Medications ?Medication ?Instructions ?Recorded ?Confirmed donepezil 5 mg tablet 5 mg PO HS 06/09/24 06/09/24 mirtazapine 15 mg tablet 15 mg PO HS 06/09/24 06/09/24 Previous Rx's ?Medication ?Instructions ?Recorded amoxicillin 500 mg capsule 500 mg PO BID 7 days #14 caps 06/09/24 carbamide peroxide 6.5 % ear drops 5 drp Ear-Both Q12H 4 days #15 mL 06/09/24 (Clearcanal Earwax Softener) Allergies Allergy/AdvReac Type Severity Reaction Status Date / Time morphine Allergy Unknown Verified 06/09/24 08:46 allergy reaction Worker's Comp Is this a Worker's Comp case?: No [facility] Disclaimer: The information contained in this section may have been updated after the patient was seen, as this information can be updated by other users. Medical History COVID-19 Osteoarthritis Failure to thrive Surgical History H/O hernia repair Family History Other No significant family history Social History Smoking Status: Former smoker tobacco type: pipe alcohol intake: never current occupational status: retired Travel in the last 8 weeks: None household members: family Have you lived/traveled outside [place] in past 30 days?: No Contact w/someone who lives/traveled outside US past 30 days?: No Exposure to someone with infectious disease in past 14 days?: No Do you have a fever (greater than 100.4 F or 38 C)?: No Have you tested positive for COVID-19: No Exposed to someone with COVID-19 in past 14 days?: No Do you have a sore throat?: No Do you have a cough?: No Do you have any weakness?: No Do you have any diarrhea?: No Are you experiencing any unusual bleeding?: No Do you have any muscle aches/pain?: No Do you have any abdominal pain?: No Are you experiencing loss of taste or smell?: No ROS Obtained: Yes All systems reviewed & no additional complaints except as documented and Yes Systems reviewed as appropriate & no additional complaints except as documented Constitutional Constitutional: Reports system reviewed and no additional complaints, except as documented and Reports as per HPI ENT Ears, Nose, Mouth, and Throat: Reports system reviewed and no additional complaints, except as documented, Reports as per HPI, Reports otalgia and Reports sore throat Cardiovascular Cardiovascular: Reports system reviewed and no additional complaints, except as documented and Reports as per HPI Respiratory Respiratory: Reports system reviewed and no additional complaints, except as documented and Reports as per HPI Gastrointestinal Gastrointestingal: Reports system reviewed and no additional complaints, except as documented and as per HPI Physical Exam General General appearance: alert and in no apparent distress ENT ENT exam: Present mucous membranes moist Expanded ENT Exam TM/Canal exam: Bilateral TM: loss of landmarks and cerumen impaction (redness noted in left in front of wax impaction, attempted removal patient complaint of pain) Throat exam: Present tonsillar erythema; Absent tonsillomegaly or tonsillar exudate Respiratory Respiratory exam: Present normal lung sounds bilaterally; Absent respiratory distress or wheezes Cardiovascular Cardiovascular exam: Present regular rate, normal rhythm and normal heart sounds Neurological Exam Neurological exam: Present alert, oriented X3 and normal gait Medical Decision Making Medical Records Screening: Per USPSTF and CDC recommendations, given the prevalence of disease in our region, it is our hospital?s policy to screen for HIV and viral Hepatitis for all patients aged 18 and over and those with ongoing risk factors. Robert Inquiry Pt receiving controlled substance: No Robert was queried for this patient: No Vital Signs: 06/09/24 09:55 Temperature 97.9 F Temperature Source Oral Pulse Rate [Left Brachial] 71 Respiratory Rate 19 Blood Pressure [Left Arm] 147/78 H Blood Pressure Mean [Left Arm] 101 Blood Pressure Source [Left Arm] Automatic Cuff Blood Pressure Position [Left Arm] Sitting 02 Sat by Pulse Oximetry 98 Oxygen Delivery Method Room Air Lab Data Lab results reviewed: Yes I reviewed the patient's lab results. Medical Decision Narrative: medication discussed with pharmacy
[2024-06-09 10:22] LABS: UTC Strep Screen (Rapid) Negative (Negative)
[2024-06-09 10:42] VITALS: BP 147/78; PULSE 71; RESP 19; TEMP 36.6; O2SAT 98
== END 2024-06-09 10:46 | disposition home or self-care (01) ==
PROVIDERS: Emergency Provider Nurse Practitioner; PCP Internal Medicine Adolescent Medicine
DX: H66.90 Otitis media, unspecified, unspecified ear (principal)
CPT/HCPCS: 87880; 99212; G0381

== ENCOUNTER 2024-06-17 18:53 | Emergency (ER) | payer MEDICARE, MEDICAID, SELFPAY ==
[2024-06-17 19:14] VITALS: BP 173/71; PULSE 66; RESP 18; TEMP 37.7; O2SAT 98; BMI 15.7
--- NOTE | 2024-06-17 20:38 | XR_ITS ---
PROCEDURE INFORMATION: Exam: XR Chest Exam date and time: 06/17/2024 8:44 PM Age: 78 years old Clinical indication: Cough; Additional info: Cough, petechiae TECHNIQUE: Imaging protocol: Radiologic exam of the chest. Views: 1 view. COMPARISON: CR XR CHEST PORTABLE 01/29/2022 11:52 AM FINDINGS: Lungs: Unremarkable. No consolidation. Pleural spaces: Unremarkable. No pleural effusion. No pneumothorax. Heart/Mediastinum: Unremarkable. No cardiomegaly. Vasculature: There is uncoiling of the thoracic aorta. Bones/joints: Mild thoracic scoliosis and degenerative disc changes. No acute abnormality. IMPRESSION: No acute interval change
--- NOTE | 2024-06-17 21:24 | ED_ITS ---
Discharge Plan Disposition Patient Disposition: Left Against Medical Advice Chief Complaint: Skin/Abscess/Foreign Body Prescriptions Prescriptions: No Action ammonium lactate 12 % cream 1 applic topical BID ketoconazole 2 % cream topical Patient Comments: APPLY CREAM TOPICALLY TWICE DAILY FOR FUNGAL INFECTION FOR 30 DAYS donepezil 5 mg tablet 5 mg PO HS Patient Comments: TAKE 1 TABLET BY MOUTH ONCE A DAY AT BEDTIME mirtazapine 15 mg tablet 15 mg PO HS Patient Comments: TAKE 1 TABLET BY MOUTH EVERY DAY AT BEDTIME Clearcanal Earwax Softener 6.5 % drops 5 drp Ear-Both Q12H 4 Days Qty: 15 0RF Rx Instructions: in both ears as directed for 4 days amoxicillin 500 mg capsule 500 mg PO BID 7 Days Qty: 14 0RF Referrals Follow up/Referrals: Juanjose Mcleod MD [Primary Care Provider] - See instructions Clinical Impressions Clinical Impression: Petechial rash Print Language Print Language: Divehi Discharge ED Provider: Juan J Thomason General Adult HPI <Juan J Thomason MD - Last Filed: 06/17/24 22:59> General Chief complaint: Skin/Abscess/Foreign Body Stated complaint: legs and arms purple Time Seen by Provider: 06/17/24 20:23 Mode of Arrival: Ambulatory Source of Information: Patient Limitations: No Limitations Description of Symptoms (Recalled from ER Triage Doc. by RN): Per family pt states he has had a petechial rash develop to his bilateral lower extremities, and his feet are starting to swell. Pt was sent for dvt rule out. History of Present Illness HPI narrative: Please note that above description of symptoms, in this electronic medical record under categorization of recalled from ER triage doctor by RN are reflective of an initial nursing assessment, however, is not reflective of my full history and physical exam that was personally taken and clarified. Consequentially, this preceding description of symptoms, which may include the patient's categorized chief complaint in the EMR, do not reflect my personal clinical impression, and the ultimate description of history of present illness and patient stated complaints should be deferred to this section of the note. Unless stated otherwise or congruent with this section of the note, additional signs, symptoms, or incongruence should be interpreted as inaccurate with my clinical impression. Related Data Home Medications ?Medication ?Instructions ?Recorded ?Confirmed ammonium lactate 12 % topical cream 1 applic topical BID 06/09/24 06/09/24 donepezil 5 mg tablet 5 mg PO HS 06/09/24 06/09/24 ketoconazole 2 % topical cream applic topical 06/09/24 06/09/24 mirtazapine 15 mg tablet 15 mg PO HS 06/09/24 06/09/24 Previous Rx's ?Medication ?Instructions ?Recorded amoxicillin 500 mg capsule 500 mg PO BID 7 days #14 caps 06/09/24 carbamide peroxide 6.5 % ear drops 5 drp Ear-Both Q12H 4 days #15 mL 06/09/24 (Clearcanal Earwax Softener) Allergies Allergy/AdvReac Type Severity Reaction Status Date / Time morphine Allergy Unknown Verified 06/09/24 08:46 allergy reaction [facility] <Juan J Thomason MD - Last Filed: 06/17/24 22:59> [facility] Disclaimer: The information contained in this section may have been updated after the patient was seen, as this information can be updated by other users. Medical History COVID-19 Osteoarthritis Failure to thrive Surgical History H/O hernia repair Family History Other No significant family history Social History Smoking Status: Never smoker alcohol intake: never current occupational status: retired Travel in the last 8 weeks: None household members: family Have you lived/traveled outside [place] in past 30 days?: No Contact w/someone who lives/traveled outside [place] past 30 days?: No Exposure to someone with infectious disease in past 14 days?: No Do you have a fever (greater than 100.4 F or 38 C)?: No Have you tested positive for COVID-19: No Exposed to someone with COVID-19 in past 14 days?: No Do you have a sore throat?: No Do you have a cough?: No Do you have any weakness?: No Do you have any diarrhea?: No Are you experiencing any unusual bleeding?: No Do you have any muscle aches/pain?: No Do you have any abdominal pain?: No Are you experiencing loss of taste or smell?: No Other Medical History Have you received the Flu Vaccine for this season: No Have you received the Pneumonia Vaccine: Yes <Juan J Thomason MD - Last Filed: 06/17/24 22:59> ROS Obtained: Yes All systems reviewed & no additional complaints except as documented Physical Exam <Juan J Thomason MD - Last Filed: 06/17/24 22:59> General General appearance: alert and cachectic Head Head exam: atraumatic and normocephalic Eye Eye exam: Present normal appearance, PERRL and EOMI Neck Neck exam: Present normal inspection, full ROM and trachea midline Respiratory Respiratory exam: Absent respiratory distress, wheezes, stridor, accessory muscle use or prolonged expiratory phase Cardiovascular Cardiovascular exam: Present other (Pulses equal symmetric in upper and lower extremities) Abdominal Exam Abdominal exam: Present soft and scar; Absent distention, tenderness, guarding, rebound or pulsatile mass Extremities Exam Extremities exam: Present other (Petechiae in bilateral upper and lower extremities); Absent edema Neurological Exam Neurological exam: Present alert, oriented X3 and CN II-XII intact; Absent motor sensory deficit Skin Skin exam: Present warm and dry; Absent diaphoresis or erythema Medical Decision Making <Juan J Thomason MD - Last Filed: 06/17/24 22:59> Medical Records Medical records reviewed: Yes I reviewed the patient's medical records. Screening: Per USPSTF and CDC recommendations, given the prevalence of disease in our region, it is our hospital?s policy to screen for HIV and viral Hepatitis for all patients aged 18 and over and those with ongoing risk factors. Robert Inquiry Pt receiving controlled substance: No Robert was queried for this patient: No Vital Signs: 06/17/24 19:14 Temperature 99.9 F H Temperature Source Oral Pulse Rate [Right] 66 Respiratory Rate 18 Blood Pressure [Right Arm] 173/71 H Blood Pressure Mean [Right Arm] 105 Blood Pressure Source [Right Arm] Automatic Cuff Blood Pressure Position [Right Arm] Sitting 02 Sat by Pulse Oximetry 98 Oxygen Delivery Method Room Air Lab Data Lab Results 06/17/24 23:11: WBC 10.3, RBC 3.50 L, Hgb 10.8 L, Hct 33.4 L, MCV 95.4 H, MCH 30.9, MCHC 32.3, RDW 12.9, Plt Count 237, MPV 10.4, Neut % (Auto) 56.5, Lymph % (Auto) 25.5, [place] % (Auto) 8.2, Eos % (Auto) 8.9, Baso % (Auto) 0.3, Neut # (Auto) 5.8, Lymph # (Auto) 2.6, [place] # (Auto) 0.8, Eos # (Auto) 0.9 H, Baso # (Auto) 0.0, PT 10.7, INR 0.97, APTT 27.0, Fibrinogen 340 06/17/24 23:11 Orders (Tests/Meds): ORDERS Category Date Time Status CXR --portable [XR chest portable] Stat Exams 06/17/24 20:38 Completed POCUS Point of Care (ER Only) Stat Exams 06/17/24 20:23 Completed CBC w/Auto Diff [Complete Blood Count Auto Diff] Stat Lab 06/17/24 23:11 Completed CMP [Comprehensive Metabolic Panel] Stat Lab 06/17/24 23:11 Received D-Dimer Stat Lab 06/17/24 23:11 Received Fibrinogen Stat Lab 06/17/24 23:11 Completed PT INR [Prothrombin Time INR] Stat Lab 06/17/24 23:11 Completed PTT [Activated Partial Thrombo Time] Stat Lab 06/17/24 23:11 Completed Medical Decision Narrative: 78-year-old male history of hypertension, dementia, CKD, failure to thrive presenting with rash. Patient states that for 2 days he has had painful hands and feet. Family corroborates this. States that he started developing a rash in his lower extremities. Has no complaints otherwise. Speaking full sentences, lungs are clear, abdomen is soft, nontender, nondistended. No red hot swollen joints. Differential includes DIC, other coagulopathy, viral syndrome, rheumatologic disease, sepsis, endocrinologic abnormality, among others Patient placed on continuous cardiac monitoring and continuous pulse ox with initial blood pressure 173/71, heart rate 86, saturation 99% on room air. Patient given p.o. challenge here in the emergency department. Bedside [id number] ultrasound was performed out of familial concern for DVT. This was negative of the left lower extremity. Inability to obtain IV access. Ultrasound IV was placed. Prior to labs, care handed off to oncoming physician. Prints And Drawings Curator disclaimer Much of this encounter note is an electronic manager implementation spoken language to printed text. Electronic manager implementation of the spoken language may permit errors. Although I have reviewed the note, some errors may still exist. <Betty Huddleston MD - Last Filed: 06/17/24 23:57> Vital Signs: 06/17/24 19:14 Temperature 99.9 F H Temperature Source Oral Pulse Rate [Right] 66 Respiratory Rate 18 Blood Pressure [Right Arm] 173/71 H Blood Pressure Mean [Right Arm] 105 Blood Pressure Source [Right Arm] Automatic Cuff Blood Pressure Position [Right Arm] Sitting 02 Sat by Pulse Oximetry 98 Oxygen Delivery Method Room Air Lab Data Lab Results 06/17/24 23:11: WBC 10.3, RBC 3.50 L, Hgb 10.8 L, Hct 33.4 L, MCV 95.4 H, MCH 30.9, MCHC 32.3, RDW 12.9, Plt Count 237, MPV 10.4, Neut % (Auto) 56.5, Lymph % (Auto) 25.5, [place] % (Auto) 8.2, Eos % (Auto) 8.9, Baso % (Auto) 0.3, Neut # (Auto) 5.8, Lymph # (Auto) 2.6, [place] # (Auto) 0.8, Eos # (Auto) 0.9 H, Baso # (Auto) 0.0, PT 10.7, INR 0.97, APTT 27.0, Fibrinogen 340 Orders (Tests/Meds): ORDERS Category Date Time Status CXR --portable [XR chest portable] Stat Exams 06/17/24 20:38 Completed POCUS Point of Care (ER Only) Stat Exams 06/17/24 20:23 Completed CBC w/Auto Diff [Complete Blood Count Auto Diff] Stat Lab 06/17/24 23:11 Completed CMP [Comprehensive Metabolic Panel] Stat Lab 06/17/24 23:11 Received D-Dimer Stat Lab 06/17/24 23:11 Received Fibrinogen Stat Lab 06/17/24 23:11 Completed PT INR [Prothrombin Time INR] Stat Lab 06/17/24 23:11 Completed PTT [Activated Partial Thrombo Time] Stat Lab 06/17/24 23:11 Completed Medical Decision Narrative: 78-year-old male history of hypertension, dementia, CKD, failure to thrive presenting with rash. Patient states that for 2 days he has had painful hands and feet. Family corroborates this. States that he started developing a rash in his lower extremities. Has no complaints otherwise. Speaking full sentences, lungs are clear, abdomen is soft, nontender, nondistended. No red hot swollen joints. Differential includes DIC, other coagulopathy, viral syndrome, rheumatologic disease, sepsis, endocrinologic abnormality, among others Patient placed on continuous cardiac monitoring and continuous pulse ox with initial blood pressure 173/71, heart rate 86, saturation 99% on room air. Patient given p.o. challenge here in the emergency department. Bedside [id number] ultrasound was performed out of familial concern for DVT. This was negative of the left lower extremity. Inability to obtain IV access. Ultrasound IV was placed. Prior to labs, care handed off to oncoming physician. Prints And Drawings Curator disclaimer Much of this encounter note is an electronic manager implementation spoken language to printed text. Electronic manager implementation of the spoken language may permit errors. Although I have reviewed the note, some errors may still exist. Huddleston: Dr. Thomason handed off this patient to me with hematologic labs pending. I agree with his assessment and plan. Unfortunately while I was seeing another patient, this patient and family became agitated and aggressive with staff. They demanded to leave, patient was standing in the hallway shouting. He demonstrated capacity to make this decision and yelled it is 12:00, get this out of my arm referring to the IV. Patient was informed that workup was still pending and was recommended to stay in the ER to complete workup. He knows that his condition could worsen causing permanent disability or . Patient signed out AGAINST MEDICAL ADVICE. Procedures <Juan J Thomason MD - Last Filed: 06/17/24 22:59> Limited Ultrasound Indication:: Ultrasound-guided line placement Indication: -Difficult IV access numerous negative pokes Identified structures: -Left upper extremity veins Location/access site: -Left basilic vein Vessel patency: -Patent Direct visualization? -Yes Impression: Successful 20-gauge catheter in left upper extremity basilic vein Images were not saved to permanent archive The study was technically adequate CPT Codes: Venipuncture: 38499-40 Age <3 yo: 66468-71 Age >3yo: 38099-42 Central line <5 yo: 27154-26 Central line >5 yo: 41125-28 This study was performed by me, and I personally interpreted all images/videos. Based on my clinical judgement, these images were adequate and did not necessitate further imaging Critical Care <Juan J Thomason MD - Last Filed: 06/17/24 22:59> Critical Care Time Critical Care Time: No
[2024-06-17 23:19] LABS: Basophils % 0.3 % (0.1-2.0); Eosinophils # 0.9 K/mm3 (0.0-0.4); Eosinophils % 8.9 % (0.1-12.0); Hematocrit 33.4 % (42.0-52.0); Hemoglobin 10.8 g/dL (14.1-18.0); Lymphocytes # 2.6 K/mm3 (0.7-4.5); Lymphocytes % 25.5 % (10-50); Mean Corpuscular HGB Conc 32.3 g/dL (31.8-35.4); Mean Corpuscular Hemoglobin 30.9 pg (27.0-31.2); Mean Corpuscular Volume 95.4 fl (80-94); Mean Platelet Volume 10.4 fl (7.4-10.4); Monocytes # 0.8 K/mm3 (0.1-1.0); Monocytes % 8.2 % (1.7-9.3); Neutrophils # 5.8 K/mm3 (1.8-7.8); Neutrophils % 56.5 % (37.0-80.0); Platelet Count 237 K/mm3 (142-424); Red Cell Distribution Width 12.9 % (11.5-17.5); White Blood Count 10.3 K/mm3 (4.8-10.8)
[2024-06-17 23:29] LABS: Fibrinogen 340 mg/dL (208.1-352.0)
[2024-06-17 23:30] LABS: INR 0.97 (0.9-1.1); Prothrombin Time 10.7 seconds (9.2-12.1)
[2024-06-17 23:31] LABS: Alanine Aminotransferase 32 U/L (12-78); Albumin Level 4.6 g/dl (3.5-5.0); Albumin/Globulin Ratio 1.6 (1.1-1.8); Alkaline Phosphatase 81 U/L (38-126); Anion Gap 14.8 mEq/L (5-15); Aspartate Amino Transferase 39 U/L (17-59); Bilirubin,Total 0.8 mg/dl (0.2-1.3); Blood Urea Nitrogen 20 mg/dl (9-20); Calcium 9.3 mg/dl (8.4-10.2); Carbon Dioxide 33 mmol/L (22.0-30.0); Chloride 102 mmol/L (98-107); Creatinine Clearance Estimated 30 mL/min (50-200); Estimated Glomerular Filt Rate 49 ml/min (>60); GFR (African American) 59 ML/MIN (>60); Globulin 2.8 g/dL (1.3-3.2); Glucose 90 mg/dl (74-100); Potassium 3.8 mmoL/L (3.5-5.1); Sodium 146 mmol/L (136-145); Total Protein,Serum 7.4 g/dl (6.3-8.2)
[2024-06-17 23:44] LABS: D-Dimer 4.09 ug/mL (0.0-0.5)
[2024-06-17 23:51] VITALS: BP 000/00; PULSE 0; RESP 0; TEMP -17.7; TEMP 0; O2SAT 0
--- NOTE | 2024-06-18 09:37 | PC.NURSE ---
pt family requesting information about pt labs, speaking with family
--- NOTE | 2024-06-18 09:37 | PC.NURSE ---
pt requesting results of labs, speaking with
== END 2024-06-17 23:56 | disposition left against medical advice (07) ==
PROVIDERS: Emergency Provider Emergency Medicine; PCP Internal Medicine Adolescent Medicine
DX: R23.3 Spontaneous ecchymoses (principal); R22.43 Localized swelling, mass and lump, lower limb, bilateral; M79.641 Pain in right hand; M79.642 Pain in left hand; M79.671 Pain in right foot; M79.672 Pain in left foot; Z53.29 Procedure and treatment not carried out because of patient's decision for other reasons
CPT/HCPCS: 71045; 80053; 85025; 85378; 85384; 85610; 85730; 99284

== ENCOUNTER 2024-06-18 10:35 | Emergency (ER) | payer MEDICARE, MEDICAID, SELFPAY ==
[2024-06-18] VITALS (13 sets, daily range): BP systolic 122–155; BP diastolic 67–82; PULSE 58–79; RESP 11–20; TEMP 36.6; O2SAT 93–100; BMI 15.2
--- NOTE | 2024-06-18 10:43 | CT_ITS ---
FINAL REPORT TECHNIQUE: Thin section axial CT with contrast with multiplanar reconstruction This study was performed with techniques to keep radiation doses as low as reasonably achievable, (ALARA). Individualized dose reduction techniques using automated exposure control or adjustment of mA and/or kV according to the patient's size were employed. CLINICAL HISTORY: numbness BLE, petechial rash COMPARISON: None FINDINGS: Pulmonary vessels enhance in normal fashion without gross evidence of embolism. Thoracic aorta shows no dissection or aneurysm. The ascending aorta measures 36 mm in diameter, normal. No pulmonary mass or infiltrate is present. There is no significant pleural effusion. There is no significant pericardial effusion. No mediastinal or hilar adenopathy is present. IMPRESSION: No evidence of pulmonary embolism, dissection, or aneurysm of the aorta. No acute cardiopulmonary abnormality identified. Reviewed, Interpreted and Dictated by William Zavala MD Transcribed by Hailey García Authenticated and [facility]
--- NOTE | 2024-06-18 10:43 | CT_ITS ---
FINAL REPORT TECHNIQUE: Pre-and postcontrast images of the abdomen and abdomen were performed by computed tomography. Extensive 3-D reconstruction images were performed. A CTA was performed. This study was performed with techniques to keep radiation doses as low as reasonably achievable (ALARA). Individualized dose reduction techniques using automated exposure control or adjustment of mA and/or kV according to the patient''s size were employed. CLINICAL HISTORY: numbness ble petachial rash FINDINGS: ABDOMEN/PELVIS: There is pneumobilia within the left liver. There is moderate renal atrophy. There is a nonobstructing stone lower pole left kidney. The remaining solid organs are unremarkable. There is no bowel obstruction. There is no bowel wall thickening. No free fluid is identified. There is a large right inguinal hernia containing distal small bowel, proximal colon and appendix without obstruction. There is severe arthritic changes of the right hip. CTA: The aorta shows no aneurysm or dissection. The mesenteric and renal arteries are widely patent. The iliac vessels are widely patent. IMPRESSION: No evidence of abdominal aortic dissection or aneurysm. Large right inguinal hernia containing bowel without bowel obstruction. Reviewed, Interpreted and Dictated by William Zavala MD Transcribed by Arlene Lizarraga Authenticated and [facility]
--- NOTE | 2024-06-18 11:06 | PC.NURSE ---
respiratory aware of vbg
--- NOTE | 2024-06-18 11:10 | HMH.EDGENADL ---
Discharge Plan Disposition Patient Disposition: Home, Self-Care Chief Complaint: Skin/Abscess/Foreign Body Prescriptions Prescriptions: No Action ammonium lactate 12 % cream 1 applic topical BID ketoconazole 2 % cream topical Patient Comments: APPLY CREAM TOPICALLY TWICE DAILY FOR FUNGAL INFECTION FOR 30 DAYS donepezil 5 mg tablet 5 mg PO HS Patient Comments: TAKE 1 TABLET BY MOUTH ONCE A DAY AT BEDTIME mirtazapine 15 mg tablet 15 mg PO HS Patient Comments: TAKE 1 TABLET BY MOUTH EVERY DAY AT BEDTIME Clearcanal Earwax Softener 6.5 % drops 5 drp Ear-Both Q12H 4 Days Qty: 15 0RF Rx Instructions: in both ears as directed for 4 days amoxicillin 500 mg capsule 500 mg PO BID 7 Days Qty: 14 0RF Referrals Follow up/Referrals: Juanjose Mcleod MD [Primary Care Provider] - See instructions Activity Restrictions/Add. Instructions Additional Instructions/Restrictions: At this time it was felt you are safe to be discharged home. If new or worsening symptoms please do not hesitate to return the emergency department. You have an appointment with Dr. Szymanski hematology/oncology on June 22 at 2 PM. Please make sure you follow-up with him and discuss further workup and treatment and possible subsequent referral to dermatology. Do not take ibuprofen or aspirin and do not compress the lower extremities with any wraps. Clinical Impressions Clinical Impression: Vasculitis Print Language Print Language: Belarusian Discharge ED Provider: Scot Hoover General Adult HPI General Chief complaint: Skin/Abscess/Foreign Body Stated complaint: Pain in both feet/blue and purple, facial swelling Time Seen by Provider: 06/18/24 10:43 Mode of Arrival: Wheelchair Source of Information: Patient and Relative Limitations: No Limitations Description of Symptoms (Recalled from ER Triage Doc. by RN): pt was seen in the ED yesterday with complaints of a rash on bilateral lower extremities from the knee down with bilateral foot pain rating a 4 at this time. pt reports he left AMA yesterday and was told to return today for his abnormal labs. pt denies any chest pain or SOB at this time. +2 dorsallis bilateral pulses palpated on assessment. History of Present Illness HPI narrative: Patient is a 78-year-old male with past medical history of osteoarthritis, acid reflex, hernia status, post repair who presents the emergency department for evaluation of rash. Onset was acute, over the last 48 to 72 hours, beginning on his feet and then he sending up his legs. he states that he feels his hands are a little bit swollen compared to baseline better than that only noticed the rash. No chest pain, no headache, no neck pain, no vision changes reported, no other acute complaints at this time. Per view of chart last night, he was saying where hematological labs were obtained, and patient ultimately elected to sign out against medical advice. This morning I reviewed his labs and given an elevated D dimer instructed him to return for continued evaluation. Denies chest pain, abdominal pain, other symptoms at this time. Related Data Home Medications ?Medication ?Instructions ?Recorded ?Confirmed ammonium lactate 12 % topical cream 1 applic topical BID 06/09/24 06/09/24 donepezil 5 mg tablet 5 mg PO HS 06/09/24 06/09/24 ketoconazole 2 % topical cream applic topical 06/09/24 06/09/24 mirtazapine 15 mg tablet 15 mg PO HS 06/09/24 06/09/24 Previous Rx's ?Medication ?Instructions ?Recorded amoxicillin 500 mg capsule 500 mg PO BID 7 days #14 caps 06/09/24 carbamide peroxide 6.5 % ear drops 5 drp Ear-Both Q12H 4 days #15 mL 06/09/24 (Clearcanal Earwax Softener) Allergies Allergy/AdvReac Type Severity Reaction Status Date / Time morphine Allergy Unknown Verified 06/09/24 08:46 allergy reaction [facility] Disclaimer: The information contained in this section may have been updated after the patient was seen, as this information can be updated by other users. Medical History COVID-19 Osteoarthritis Failure to thrive Surgical History H/O hernia repair Family History Other No significant family history Social History Smoking Status: Never smoker alcohol intake: never current occupational status: retired Travel in the last 8 weeks: None household members: family Other Medical History Have you received the Flu Vaccine for this season: No Have you received the Pneumonia Vaccine: Yes ROS Obtained: Yes Systems reviewed as appropriate & no additional complaints except as documented Physical Exam General General appearance: alert and in no apparent distress Head Head exam: atraumatic and normocephalic Eye Eye exam: Present PERRL and EOMI ENT ENT exam: Present mucous membranes moist Neck Neck exam: Present normal inspection Chest Chest inspection: Present normal inspection and symmetric chest wall rise Respiratory Respiratory exam: Present normal lung sounds bilaterally; Absent respiratory distress Cardiovascular Cardiovascular exam: Present regular rate and normal rhythm Abdominal Exam Abdominal exam: Present soft; Absent tenderness Extremities Exam Extremities exam: Present other (no edema ble/ petechial rash on lower extremities affecting the soles, up to the level of knees b/l. palpable DP pulse b/l); Absent normal inspection Neurological Exam Neurological exam: Present alert Psychiatric Psychiatric exam: Present normal affect Skin Skin exam: Present warm, dry and rash Medical Decision Making Medical Records Screening: Per USPSTF and CDC recommendations, given the prevalence of disease in our region, it is our hospital?s policy to screen for HIV and viral Hepatitis for all patients aged 18 and over and those with ongoing risk factors. Robert Inquiry Pt receiving controlled substance: No Vital Signs: 06/18/24 10:36 06/18/24 10:44 06/18/24 11:00 Temperature 97.9 F Temperature Source Oral Pulse Rate 74 63 Pulse Rate [Left Radial] 66 Respiratory Rate 17 Blood Pressure 139/82 122/81 Blood Pressure [Right Arm] 139/82 Blood Pressure Mean Blood Pressure Mean [Right Arm] 101 Blood Pressure Source [Right Arm] Automatic Cuff Blood Pressure Position [Right Arm] Sitting 02 Sat by Pulse Oximetry 100 96 99 Oxygen Delivery Method Room Air Room Air 06/18/24 11:30 06/18/24 11:45 06/18/24 12:00 Temperature Temperature Source Pulse Rate 67 71 Pulse Rate [Left Radial] Respiratory Rate 12 20 11 L Blood Pressure 143/72 H 143/72 H 138/67 Blood Pressure [Right Arm] Blood Pressure Mean 95 Blood Pressure Mean [Right Arm] Blood Pressure Source [Right Arm] Blood Pressure Position [Right Arm] 02 Sat by Pulse Oximetry 99 93 L Oxygen Delivery Method 06/18/24 12:15 06/18/24 12:30 06/18/24 13:00 Temperature Temperature Source Pulse Rate 58 L 59 L 65 Pulse Rate [Left Radial] Respiratory Rate 13 15 12 Blood Pressure 136/67 148/79 H 146/80 H Blood Pressure [Right Arm] Blood Pressure Mean Blood Pressure Mean [Right Arm] Blood Pressure Source [Right Arm] Blood Pressure Position [Right Arm] 02 Sat by Pulse Oximetry 100 100 97 Oxygen Delivery Method 06/18/24 13:30 06/18/24 13:45 06/18/24 14:00 Temperature Temperature Source Pulse Rate 60 62 64 Pulse Rate [Left Radial] Respiratory Rate 18 16 12 Blood Pressure 150/82 H 150/82 H 152/79 H Blood Pressure [Right Arm] Blood Pressure Mean Blood Pressure Mean [Right Arm] Blood Pressure Source [Right Arm] Blood Pressure Position [Right Arm] 02 Sat by Pulse Oximetry 99 100 100 Oxygen Delivery Method Lab Data Lab Results 06/18/24 10:58: WBC 9.1, RBC 3.31 L, Hgb 10.3 L, Hct 31.6 L, MCV 95.5 H, MCH 31.1, MCHC 32.6, RDW 13.0, Plt Count 229, MPV 10.4, Neut % (Auto) 57.8, Lymph % (Auto) 21.7, [place] % (Auto) 8.8, Eos % (Auto) 10.5, Baso % (Auto) 0.4, Neut # (Auto) 5.3, Lymph # (Auto) 2.0, [place] # (Auto) 0.8, Eos # (Auto) 1.0 H, Baso # (Auto) 0.0, ESR 21 H, PT 10.9, INR 0.99, APTT 27.5, Fibrinogen 331, Sodium 146 H, Potassium 3.8, Chloride 107, Carbon Dioxide 33 H, Anion Gap 9.8, BUN 20, Creatinine 1.30 H, Estimated Creat Clear 32, Estimated GFR 54 L, Est GFR ( Amer) 65, Glucose 89, Calcium 9.0, Magnesium 1.7, Total Bilirubin 0.7, AST 43, ALT 30, Alkaline Phosphatase 54, Lactate Dehydrogenase 318, C-Reactive Protein 51.9 H, NT-Pro-B Natriuret Pep 1480 H, Total Protein 6.8, Albumin 4.2, Globulin 2.6, Albumin/Globulin Ratio 1.6 06/18/24 11:06: VBG pH 7.36, VBG pCO2 49.0, VBG pO2 41.6 H, VBG HCO3 27.2, VBG Total CO2 28.8 H, VBG O2 Saturation 77.3 H, VBG Base Excess 1.8, VBG Lactic Acid 1.7 06/18/24 12:54: Urine Color Yellow, Urine Appearance Clear, Urine pH 6.0, Ur Specific [place] 1.010, Urine Protein Negative, Urine Glucose (UA) Negative, Urine Ketones Negative, Urine Blood Negative, Urine Nitrate Negative, Urine Bilirubin Negative, Urine Urobilinogen 1.0, Ur Leukocyte Esterase Negative, Urine RBC None, Urine WBC None, Ur Squamous Epith Cells Occasional, Urine Bacteria Trace 06/18/24 10:58 06/18/24 10:58 Orders (Tests/Meds): ED MEDICATIONS Generic Name Dose Route Start Last Admin Trade Name Freq PRN Reason Stop Dose Admin Sodium Chloride 10 ml 06/18/24 11:21 06/18/24 11:23 Sodium Chloride 0.9% 10ml Syr (Rad Only) IV 07/18/24 11:20 10 ml NEEDED PRN Administration Maintain IV Site Discontinued Medications Generic Name Dose Route Start Last Admin Trade Name Freq PRN Reason Stop Dose Admin Iopamidol 80 ml 06/18/24 11:21 Iopamidol-370 (76%);100ml Bottle IV 06/18/24 11:22 ONCE ONE Sodium Chloride 50 ml 06/18/24 11:21 06/18/24 11:22 0.9 % Sodium Chloride 50 Ml Vial IV 06/18/24 11:22 50 ml ONCE ONE Administration ORDERS Category Date Time Status CT angio abdomen pelvis Stat Cat Scan 06/18/24 10:[address] angio chest - dissection Stat Cat Scan 06/18/24 10:43 Completed POCUS Point of Care (ER Only) Stat Exams 06/18/24 10:45 Completed BNP [NT Pro Brain Natriuretic Pep.] Stat Lab 06/18/24 10:58 Completed CBC w/Auto Diff [Complete Blood Count Auto Diff] Stat Lab 06/18/24 10:58 Completed CMP [Comprehensive Metabolic Panel] Stat Lab 06/18/24 10:58 Completed CRP [C-Reactive Protein] Stat Lab 06/18/24 10:58 Completed ESR [Erythrocyte Sedimentation Rate] Stat Lab 06/18/24 10:58 Completed Fibrinogen Stat Lab 06/18/24 10:58 Completed LDH [Lactate Dehydrogenase] Stat Lab 06/18/24 10:58 Completed MG [Magnesium] Stat Lab 06/18/24 10:58 Completed PT INR [Prothrombin Time INR] Stat Lab 06/18/24 10:58 Completed PTT [Activated Partial Thrombo Time] Stat Lab 06/18/24 10:58 Completed UA [Urinalysis and Microscopic] Stat Lab 06/18/24 12:54 Completed VBG [Venous Blood Gas] Stat RT 06/18/24 11:06 Completed Medical Decision Narrative: In summary, patient is a 78-year-old male with past medical history described above who presents the emergency department for evaluation of rash. Patient is hemodynamically and not toxic upon arrival, afebrile. He does have a rash that is petechial in nature, does not avtar, involves the soles of his feet and his ascending up to just below his knees. Does not appear to affect anywhere else on his body. Differential diagnosis includes ITP, vasculitis, HSP, among others. Or will be conducted with hematological labs, given an elevated CTA of the chest admin will be obtained. Initial interventions were considered, but will be deferred at this time given that he is not in significant pain. Initial workup reviewed by me, stable anemia, normal platelet count, compensated acid-base status, stable CKD, no critical electrolyte abnormality, BNP slightly elevated. CTA abdomen pelvis informally visualized by me, there appears to be pneumobilia however referencing his scan in 2019 this was already there. Urinalysis interpreted by me, no hematuria, not consistent with infection. Upon repeat evaluation patient had no progression of rash. Extensive shared decision-making discussion was had at bedside over possible call with transfer to [facility] or other large center to see if could be evaluated on an inpatient basis however given his lack of coagulopathy no rapid progression in the ER, no renal involvement would be unlikely in my opinion. I also offered them going home with outpatient follow-up with hematology with possible subsequent referral to dermatology with strict return precautions for which they have elected to do this. They have a good plan for monitoring him at home and are reliable to represent. Given this I feel it is appropriate for outpatient management at this time and patient was discharged in stable condition Critical Care Critical Care Time Critical Care Time: No
[2024-06-18 11:14] LABS: Lactate Venous 1.7 mmol/L (0.4-2.0); VBG Base Excess 1.8 mmol/L (-2.4-2.3); VBG HCO3 27.2 mmol/L (23-30); VBG Oxygen Saturation 77.3 % (50-70); VBG PH 7.36 mmol/L (7.31-7.41); VBG PO2 41.6 mmol/L (28-40); VBG Total CO2 28.8 mmol/L (23-27)
[2024-06-18 11:17] LABS: Basophils % 0.4 % (0.1-2.0); Eosinophils % 10.5 % (0.1-12.0); Hematocrit 31.6 % (42.0-52.0); Hemoglobin 10.3 g/dL (14.1-18.0); Lymphocytes % 21.7 % (10-50); Mean Corpuscular HGB Conc 32.6 g/dL (31.8-35.4); Mean Corpuscular Hemoglobin 31.1 pg (27.0-31.2); Mean Corpuscular Volume 95.5 fl (80-94); Mean Platelet Volume 10.4 fl (7.4-10.4); Monocytes # 0.8 K/mm3 (0.1-1.0); Monocytes % 8.8 % (1.7-9.3); Neutrophils # 5.3 K/mm3 (1.8-7.8); Neutrophils % 57.8 % (37.0-80.0); Platelet Count 229 K/mm3 (142-424); Red Blood Count 3.31 M/mm3 (4.60-6.20); White Blood Count 9.1 K/mm3 (4.8-10.8)
[2024-06-18] MEDS: 0.9 % SODIUM CHLORIDE 50 ML VIAL IV (11:22)
[2024-06-18] MEDS: SODIUM CHLORIDE 0.9% 10ML SYR (RAD ONLY) 10 ML IV (11:23)
[2024-06-18 11:25] LABS: Alanine Aminotransferase 30 U/L (12-78); Albumin Level 4.2 g/dl (3.5-5.0); Albumin/Globulin Ratio 1.6 (1.1-1.8); Alkaline Phosphatase 54 U/L (38-126); Anion Gap 9.8 mEq/L (5-15); Aspartate Amino Transferase 43 U/L (17-59); Bilirubin,Total 0.7 mg/dl (0.2-1.3); Blood Urea Nitrogen 20 mg/dl (9-20); Carbon Dioxide 33 mmol/L (22.0-30.0); Chloride 107 mmol/L (98-107); Creatinine Clearance Estimated 32 mL/min (50-200); Estimated Glomerular Filt Rate 54 ml/min (>60); GFR (African American) 65 ML/MIN (>60); Globulin 2.6 g/dL (1.3-3.2); Glucose 89 mg/dl (74-100); Magnesium 1.7 mg/dl (1.6-2.3); Potassium 3.8 mmoL/L (3.5-5.1); Sodium 146 mmol/L (136-145); Total Protein,Serum 6.8 g/dl (6.3-8.2)
[2024-06-18 11:33] LABS: NT Pro Brain Natriuretic Pep. 1480 pg/mL (0-450)
[2024-06-18 11:37] LABS: Lactate Dehydrogenase 318 U/L (313-618)
--- NOTE | 2024-06-18 11:42 | PC.NURSE ---
attempted to collect urine sample, pt states he is unable to at this time. urinal at bs
--- NOTE | 2024-06-18 11:45 | PC.NURSE ---
pt given water per MD
[2024-06-18 11:59] LABS: Activated Partial Thrombo Time 27.5 seconds (22.5-28.5); INR 0.99 (0.9-1.1); Prothrombin Time 10.9 seconds (9.2-12.1)
[2024-06-18 12:12] LABS: Fibrinogen 331 mg/dL (208.1-352.0)
[2024-06-18 12:16] LABS: Erythrocyte Sedimentation Rate 21 mm/hr (0-20)
[2024-06-18 12:26] LABS: C-Reactive Protein 51.9 mg/L (0-4)
[2024-06-18 12:57] LABS: Microscopic, Urine URINE MICROSCOPIC (MICROSCOPIC)
[2024-06-18 13:07] LABS: Appearance,Urine CLEAR (Clear); Bilirubin,Urine Negative (Negative); Blood, Urine Negative (Negative); Color,Urine YELLOW (Yellow); Glucose,Urine (UA) Negative (Negative); Ketones,Urine Negative (Negative); Leukocyte Esterase,Urine Negative (Negative); Nitrate,Urine Negative (Negative); Protein,Urine Negative (Negative)
[2024-06-18 13:23] LABS: Bacteria,Urine Trace /lpf; Squamous Epithelial Cell,Urine Occasional #/hpf (0-5)
== END 2024-06-18 14:14 | disposition home or self-care (01) ==
PROVIDERS: Emergency Provider Emergency Medicine; PCP Internal Medicine Adolescent Medicine
DX: L95.9 Vasculitis limited to the skin, unspecified (principal)
CPT/HCPCS: 71275; 74174; 80053; 81001; 82803; 83615; 83735; 83880; 85025; 85384; 85610; 85651; 85730; 86140; 99285

== ENCOUNTER 2024-09-09 18:58 | Emergency (ER) | payer MEDICARE, MEDICAID, SELFPAY ==
[2024-09-09] VITALS (9 sets, daily range): BP systolic 135–183; BP diastolic 86–103; PULSE 67–74; RESP 11–29; TEMP 37; O2SAT 97–99; BMI 17.0
--- NOTE | 2024-09-09 18:48 | ECG_ITS ---
APPROVED REPORT Exam: Resting ECG HR:73 bpm ECG Measurements Heart Rate 73 AXES [place] 159 P 77 QRSd 89 QRS 8 QT 390 T 79 QTc 416 Conclusion SINUS RHYTHM VOLTAGE CRITERIA FOR LVH [MEETS CRITERIA IN ONE OF: R(aVL), S(V1), R(V5), R(V5/V6)+S(V1)] NONSPECIFIC T-WAVE ABNORMALITY ABNORMAL ECG UNCONFIRMED REPORT Electronically signed by : MARQUITA BREWER, 09/12/2024 23:44:51
--- NOTE | 2024-09-09 19:11 | ECG_ITS ---
APPROVED REPORT Exam: Resting ECG HR:62 bpm ECG Measurements Heart Rate 62 AXES [place] 158 P 68 QRSd 88 QRS 22 QT 397 T 72 QTc 402 Conclusion SINUS RHYTHM VOLTAGE CRITERIA FOR LVH [MEETS CRITERIA IN ONE OF: R(aVL), S(V1), R(V5), R(V5/V6)+S(V1)] ABNORMAL ECG UNCONFIRMED REPORT Electronically signed by : MARQUITA BREWER, 09/12/2024 23:44:40
--- NOTE | 2024-09-09 19:13 | XR_ITS ---
PROCEDURE INFORMATION: Exam: XR Chest Exam date and time: 09/09/2024 7:27 PM Age: 79 years old Clinical indication: Pain; Chest pressure; Additional info: Cp TECHNIQUE: Imaging protocol: Radiologic exam of the chest. Views: 1 view. COMPARISON: CT ANGIO CHEST 06/18/2024 11:20 AM FINDINGS: Lungs: Unremarkable. No consolidation. Pleural spaces: Unremarkable. No pleural effusion. No pneumothorax. Heart/Mediastinum: Unremarkable. No cardiomegaly. Bones/joints: Unremarkable. IMPRESSION: No acute findings.
[2024-09-09] MEDS: ASPIRIN 81MG CHEWABLE TABLET 324 MG PO (19:17)
[2024-09-09 19:40] LABS: Basophils % 0.2 % (0.1-2.0); Eosinophils % 0.1 % (0.1-12.0); Hemoglobin 11.7 g/dL (14.1-18.0); Immature Granulocytes # 0.05 10^3uL; Immature Granulocytes % 0.3 %; Lymphocytes # 0.6 K/mm3 (0.7-4.5); Lymphocytes % 3.8 % (10-50); Mean Corpuscular HGB Conc 32.5 g/dL (31.8-35.4); Mean Corpuscular Hemoglobin 31.1 pg (27.0-31.2); Mean Corpuscular Volume 95.7 fl (80-94); Mean Platelet Volume 10.7 fl (7.4-10.4); Monocytes # 0.5 K/mm3 (0.1-1.0); Monocytes % 3.2 % (1.7-9.3); Neutrophils # 14.8 K/mm3 (1.8-7.8); Neutrophils % 92.4 % (37.0-80.0); Nucleated Red Blood Cells # 0 10^3/uL; Nucleated Red Blood Cells % 0 %; Platelet Count 232 K/mm3 (142-424); Red Blood Count 3.76 M/mm3 (4.60-6.20); Red Cell Distribution Width 12.4 % (11.5-17.5); Red Cell Distribution Width-SD 43.9 fL; White Blood Count 16.1 K/mm3 (4.8-10.8)
[2024-09-09 19:58] LABS: Albumin Level 5.1 g/dl (3.5-5.0); Chloride 104 mmol/L (98-107); Potassium 5.2 mmoL/L (3.5-5.1); Sodium 142 mmol/L (136-145)
[2024-09-09 20:01] LABS: Alanine Aminotransferase 20 U/L (12-78); Albumin/Globulin Ratio 1.6 (1.1-1.8); Alkaline Phosphatase 68 U/L (38-126); Anion Gap 14.2 mEq/L (5-15); Aspartate Amino Transferase 55 U/L (17-59); Bilirubin,Total 0.8 mg/dl (0.2-1.3); Blood Urea Nitrogen 34 mg/dl (9-20); Carbon Dioxide 29 mmol/L (22.0-30.0); Creatinine Clearance Estimated 20 mL/min (50-200); Estimated Glomerular Filt Rate 31 ml/min (>60); GFR (African American) 37 ML/MIN (>60); Globulin 3.1 g/dL (1.3-3.2); Glucose 126 mg/dl (74-100); Total Protein,Serum 8.2 g/dl (6.3-8.2)
[2024-09-09 20:16] LABS: Troponin I < 0.01 ng/ml (0.00-0.034)
[2024-09-09 20:23] LABS: NT Pro Brain Natriuretic Pep. 1410 pg/mL (0-450)
--- NOTE | 2024-09-09 21:28 | ED_ITS ---
Discharge Plan Disposition Chief Complaint: Chest Pain Prescriptions Prescriptions: No Action ammonium lactate 12 % cream 1 applic topical BID ketoconazole 2 % cream topical Patient Comments: APPLY CREAM TOPICALLY TWICE DAILY FOR FUNGAL INFECTION FOR 30 DAYS memantine 5 mg tablet PO Patient Comments: TAKE 1 TABLET BY MOUTH TWICE DAILY multivitamin Tablet 1 tab PO DAILY acetaminophen [Tylenol Arthritis Pain] 650 mg tablet extended release 650 mg PO Q8H omeprazole 20 mg capsule,delayed release(DR/EC) 20 mg PO DAILY donepezil 5 mg tablet 5 mg PO HS Patient Comments: TAKE 1 TABLET BY MOUTH ONCE A DAY AT BEDTIME mirtazapine 15 mg tablet 15 mg PO HS Patient Comments: TAKE 1 TABLET BY MOUTH EVERY DAY AT BEDTIME Referrals Follow up/Referrals: Juanjose Mcleod MD [Primary Care Provider] - See instructions Clinical Impressions Clinical Impression: ALMAS (acute kidney injury), Chest pain, AMS (altered mental status) Print Language Print Language: [place] Discharge ED Provider: Parris Lam HPI General Chief Complaint: Chest Pain Stated Complaint: Chest Pain Time Seen by Provider: 09/09/24 19:12 Mode of Arrival: Ambulatory Source of Information: Patient Description of Symptoms (Recalled from ER Triage Doc. by RN): pt to the ED with midsternal chest tightness that radiated down his left arm. pt denies any cough or SOB. History of Present Illness HPI narrative: Sky Powell is a 79 y/o male presenting with chest pain. Pt reports having chest pain starting last night that radiates down his left arm. Patient denies nausea, vomiting, diaphoresis. Patient has history of heart failure and hypertension. Patient denies fevers or chills. Patient is accompanied by his daughter who he also lives with. She states that he has been eating and drinking per his baseline. She states he drinks the Ensure drinks and did not want to eat lunch today. She did not learn about his chest pain complaint until this afternoon. She states he has not had any known falls. Related Data Home Medications ?Medication ?Instructions ?Recorded ?Confirmed ammonium lactate 12 % topical cream 1 applic topical BID 06/09/24 09/08/24 donepezil 5 mg tablet 5 mg PO HS 06/09/24 09/08/24 ketoconazole 2 % topical cream applic topical 06/09/24 09/08/24 mirtazapine 15 mg tablet 15 mg PO HS 06/09/24 09/08/24 memantine 5 mg tablet mg PO 06/22/24 09/08/24 acetaminophen 650 mg 650 mg PO Q8H 07/01/24 09/08/24 tablet,extended release (Tylenol Arthritis Pain) multivitamin 1 tab PO DAILY 07/01/24 09/08/24 omeprazole 20 mg capsule,delayed 20 mg PO DAILY 07/01/24 09/08/24 release Allergies Allergy/AdvReac Type Severity Reaction Status Date / Time amoxicillin Allergy Severe Hives Verified 09/08/24 10:46 morphine Allergy Unknown Verified 09/08/24 10:46 [facility] Disclaimer: The information contained in this section may have been updated after the patient was seen, as this information can be updated by other users. Medical History Impacted cerumen of both ears COVID-19 Osteoarthritis Failure to thrive Surgical History Hx of cholecystectomy H/O hernia repair Family History Mother Cancer Diabetes Father Coronary artery disease Heart attack Brother Coronary artery disease Heart attack Hypertension Cancer Sister Diabetes Hypertension Family/Other Substance abuse Other No significant family history Social History Smoking Status: Never smoker alcohol intake: never current occupational status: retired Travel in the last 8 weeks?: None household members: family Have you lived/traveled outside [place] in past 30 days?: No Contact w/someone who lives/traveled outside US past 30 days?: No Exposure to someone with infectious disease in past 14 days?: No Do you have a fever (greater than 100.4 F or 38 C)?: No Have you tested positive for COVID-19?: No Exposed to someone with COVID-19 in past 14 days?: No Do you have a sore throat?: No Do you have a cough?: No Do you have any weakness?: No Do you have any diarrhea?: No Are you experiencing any unusual bleeding?: No Do you have any muscle aches/pain?: No Do you have any abdominal pain?: No Are you experiencing loss of taste or smell?: No Other Medical History Have you received the Flu Vaccine for this season: No Have you received the Pneumonia Vaccine: Yes ROS Obtained: Yes All systems reviewed & no additional complaints except as documented Physical Exam General General appearance: alert, in no apparent distress and other (appears chronically ill, very thin) Head Head exam: atraumatic Eye Eye exam: Present EOMI; Absent scleral icterus ENT ENT exam: Present mucous membranes dry Neck Neck exam: Present full ROM Chest Chest inspection: Present normal inspection Respiratory Respiratory exam: Present normal lung sounds bilaterally Cardiovascular Cardiovascular exam: Present regular rate and normal rhythm Abdominal Exam Abdominal exam: Present soft; Absent distention or tenderness exam: Present deferred Extremities Exam Extremities exam: Present full ROM; Absent tenderness or edema Back Exam Back exam: Present full ROM Neurological Exam Neurological exam: Present alert and oriented X3 Psychiatric Psychiatric exam: Present normal mood Skin Skin exam: Present warm and dry HEART Score HEART Score HEART Score assessment performed?: Yes HEART Score: 4 Critical Care Critical Care Time Critical Care Time: No Medical Decision Making Medical Records Medical records reviewed: Yes I reviewed the patient's medical records. Robert Inquiry Pt receiving controlled substance: No Vital Signs Vital Signs: 09/09/24 19:07 09/09/24 19:54 09/09/24 20:00 Temperature 98.6 F Temperature Source Oral Pulse Rate 70 67 Pulse Rate [Left Radial] 70 Respiratory Rate 17 16 15 Blood Pressure 176/95 H 183/91 H Blood Pressure [Right Arm] 178/86 H Blood Pressure Mean [Right Arm] 116 Blood Pressure Source [Right Arm] Automatic Cuff Blood Pressure Position [Right Arm] Sitting 02 Sat by Pulse Oximetry 99 97 98 Oxygen Delivery Method Room Air 09/09/24 20:30 09/09/24 21:00 09/09/24 21:30 Temperature Temperature Source Pulse Rate 72 70 72 Pulse Rate [Left Radial] Respiratory Rate 25 H 21 29 H Blood Pressure 175/91 H 171/93 H 175/96 H Blood Pressure [Right Arm] Blood Pressure Mean [Right Arm] Blood Pressure Source [Right Arm] Blood Pressure Position [Right Arm] 02 Sat by Pulse Oximetry 97 97 97 Oxygen Delivery Method 09/09/24 22:00 Temperature Temperature Source Pulse Rate Pulse Rate [Left Radial] Respiratory Rate 11 L Blood Pressure 146/86 H Blood Pressure [Right Arm] Blood Pressure Mean [Right Arm] Blood Pressure Source [Right Arm] Blood Pressure Position [Right Arm] 02 Sat by Pulse Oximetry Oxygen Delivery Method Lab Data Lab results reviewed: Yes I reviewed the patient's lab results. Labs: Lab Results 09/09/24 19:26: WBC 16.1 H, RBC 3.76 L, Hgb 11.7 L, Hct 36.0 L, MCV 95.7 H, MCH 31.1, MCHC 32.5, RDW 12.4, Plt Count 232, MPV 10.7 H, Neut % (Auto) 92.4 H, L ymph % (Auto) 3.8 L, [place] % (Auto) 3.2, Eos % (Auto) 0.1, Baso % (Auto) 0.2, N eut # (Auto) 14.8 H, Lymph # (Auto) 0.6 L, [place] # (Auto) 0.5, Eos # (Auto) 0.0, Baso # (Auto) 0.0, Sodium 142, Potassium 5.2 H, Chloride 104, Carbon Dioxide 29, Anion Gap 14.2, BUN 34 H, Creatinine 2.10 H, Estimated Creat Clear 20, Estimated GFR 31 L, Est GFR ( Amer) 37 L, Glucose 126 H, Calcium 10.0, Total Bilirubin 0.8, AST 55, ALT 20, Alkaline Phosphatase 68, Troponin I < 0.01, N T-Pro-B Natriuret Pep 1410 H, Total Protein 8.2, Albumin 5.1 H, Globulin 3.1, Albumin/Globulin Ratio 1.6 09/09/24 21:53: Urine Color Yellow, Urine Appearance Clear, Urine pH 6.0, Ur Specific [place] 1.020, Urine Protein 1+ A, Urine Glucose (UA) Negative, Urine Ketones Negative, Urine Blood 1+ A, Urine Nitrate Negative, Urine Bilirubin Negative, Urine Urobilinogen 0.2, Ur Leukocyte Esterase Negative, Urine RBC 3-5, Urine WBC Occasional, Ur Squamous Epith Cells 3-5, Urine Bacteria Trace, Hyaline Casts Occ 09/09/24 19:26 09/09/24 19:26 Response Orders (Tests/Meds): ED MEDICATIONS Generic Name Dose Route Start Last Admin Trade Name Freq PRN Reason Stop Dose Admin Nitroglycerin 0.4 mg 09/09/24 19:12 Nitroglycerin 0.4mg Sl Tablet SL 09/10/24 19:13 [id number] PRN Chest Pain Discontinued Medications Generic Name Dose Route Start Last Admin Trade Name Freq PRN Reason Stop Dose Admin Aspirin 324 mg 09/09/24 19:12 09/09/24 19:17 Aspirin 81mg Chewable Tablet PO 09/09/24 19:13 324 mg ONCE ONE Administration Lactated Ringer's 500 mls @ 999 mls/hr 09/09/24 21:50 09/09/24 22:22 Lactated Ringer's 500ml IV 09/09/24 22:20 999 mls/hr .Q31M ONE Administration ORDERS Category Date Time Status CT abdomen pelvis wo con Stat Cat Scan 09/09/24 22:[address] chest wo con Stat Cat Scan 09/09/24 22:[address] head/brain wo con Stat Cat Scan 09/09/24 21:48 Completed XR chest portable Stat Exams 09/09/24 19:13 Completed Complete Blood Count Auto Diff Stat Lab 09/09/24 19:26 Completed Comprehensive Metabolic Panel Stat Lab 09/09/24 19:26 Completed NT Pro Brain Natriuretic Pep. Stat Lab 09/09/24 19:26 Completed Troponin I Q3H Lab 09/09/24 22:15 Ordered Troponin I Q3H Lab 09/10/24 01:15 Ordered Troponin I Stat Lab 09/09/24 19:26 Completed Urinalysis and Microscopic Stat Lab 09/09/24 21:53 Completed ECG Data Tracing #1: Attestation: I reviewed this ECG and interpreted as documented below: ECG Narrative: Sinus rhythm with a rate of 62, no QTc prolongation, no significant ST elevation/depression or evidence of acute ischemia. MDM Narrative Medical Decision Narrative: In summary, this is a 79-year-old male presenting with chest pain. Differential diagnosis includes but is not limited to, ACS, aortic dissection, pneumonia, MSK, pericarditis, among others. Patient's exam notable for hypertension with appropriate heart rate and adequate oxygen saturations on room air. Patient has no known significant cardiac history. Patient will be evaluated with EKG, CXR, labs to include BNP and troponin. I personally evaluated patient's chest x-ray which did not demonstrate acute consolidation, cardiomegaly, increased airspace opacities. Patient's laboratory evaluation significant for leukocytosis of 16.1, slight anemia with a hemoglobin of 11.7, no thrombocytopenia. Potassium elevated at 5.2, creatinine increased from his baseline, suggesting ALMAS. BNP 1410, which is similar to patient's baseline. Initial troponin <0.01. During his time in the ER, patient had acute mental status change and appeared to be hallucinating. Patient's daughter states this is not his baseline and he appears to be significantly altered. Aside from acute confusion, patient has no other neurologic deficits. We discussed adding a CT head and urinalysis to his evaluation. Daughter was in agreement with this plan. Also added on treatment with small IV fluid bolus. I discussed the patient with the hospitalist due to his ALMAS, altered mental status and leukocytosis. Hospitalist requesting CT chest and abdomen/pelvis for further evaluation into the source of patient's leukocytosis. These tests were ordered. Patient ultimately admitted to hospital medicine for further management. Parris Lam MD
--- NOTE | 2024-09-09 21:48 | CT_ITS ---
PROCEDURE INFORMATION: Exam: CT Head Without Contrast Exam date and time: 09/09/2024 10:04 PM Age: 79 years old Clinical indication: Altered mental status/memory loss; Additional info: AMS TECHNIQUE: Imaging protocol: Computed tomography of the head without contrast. Radiation optimization: All CT scans at this facility use at least one of these dose optimization techniques: automated exposure control; mA and/or kV adjustment per patient size (includes targeted exams where dose is matched to clinical indication); or iterative reconstruction. COMPARISON: No relevant prior studies available. FINDINGS: Brain: Generalized cerebral atrophy. No intracranial mass, hemorrhage or evidence of acute ischemia. Cerebral ventricles: No ventriculomegaly. Paranasal sinuses: There is diffuse opacification of the bilateral maxillary sinuses compatible with chronic sinusitis. No fluid levels. Mastoid air cells: Visualized mastoid air cells are well aerated. Bones: Unremarkable. No acute fracture. Soft tissues: Unremarkable. IMPRESSION: 1. No acute intracranial abnormality 2. Significant findings of chronic bilateral maxillary sinusitis
[2024-09-09 21:57] LABS: Microscopic, Urine URINE MICROSCOPIC (MICROSCOPIC)
[2024-09-09 21:58] LABS: Appearance,Urine CLEAR (Clear); Bilirubin,Urine Negative (Negative); Blood, Urine 1+ (Negative); Color,Urine YELLOW (Yellow); Glucose,Urine (UA) Negative (Negative); Ketones,Urine Negative (Negative); Leukocyte Esterase,Urine Negative (Negative); Nitrate,Urine Negative (Negative); Protein,Urine 1+ (Negative); Urobilinogen,Urine 0.2 EU/dl (0.2)
[2024-09-09] MEDS: RINGERS SOLUTION,LACTATED 500 ML 999 ML IV (22:22)
[2024-09-09 22:36] LABS: Bacteria,Urine Trace /lpf; WBC,Urine Occasional #/hpf (0-3)
[2024-09-09 22:37] LABS: Hyaline Casts,Urine OCC #/lpf (0)
--- NOTE | 2024-09-09 22:43 | CT_ITS ---
PROCEDURE INFORMATION: Exam: CT Abdomen And Pelvis Without Contrast Exam date and time: 09/09/2024 10:58 PM Age: 79 years old Clinical indication: Abdominal pain; Left side abd pain; Additional info: Infection eval, renal stone TECHNIQUE: Imaging protocol: Computed tomography of the abdomen and pelvis without contrast. Radiation optimization: All CT scans at this facility use at least one of these dose optimization techniques: automated exposure control; mA and/or kV adjustment per patient size (includes targeted exams where dose is matched to clinical indication); or iterative reconstruction. COMPARISON: CT ANGIO ABDOMEN PELVIS 06/18/2024 11:20 AM FINDINGS: Liver: Normal. No mass. Gallbladder and biliary ducts: Persistent findings of pneumobilia. Pancreas: Normal. No ductal dilation. Spleen: Normal. No splenomegaly. Adrenal glands: Normal. No mass. Kidneys and ureters: Moderate-sized stone in the mid left ureter measuring approximately 6 mm in diameter. No other evidence of urolithiasis. Mild left hydronephrosis. Significant diffuse left perinephric edema. Stomach and bowel: Bowel loops are normal in caliber. No evidence of bowel obstruction. Appendix: No evidence of appendicitis. Intraperitoneal space: Unremarkable. No free air. No significant fluid collection. Vasculature: Unremarkable. No abdominal aortic aneurysm. Lymph nodes: Unremarkable. No enlarged lymph nodes. Urinary bladder: Unremarkable as visualized. Reproductive: Unremarkable as visualized. Bones/joints: Severe chronic deformity of the right hip joint with prominent osseous hypertrophy. Severe degenerative disc changes and facet arthropathy in the lower lumbar spine. Grade 1 anterolisthesis of L4. No vertebral body compression. No acute fracture. Soft tissues: Chronic significant diastasis recti noted. Large right inguinal hernia containing a loop of colon. No evidence of hernia incarceration. IMPRESSION: Mid left ureter stone measuring approximately 6 mm in diameter with mild left hydronephrosis significant left perinephric edema. Other stable chronic findings as noted.
--- NOTE | 2024-09-09 22:43 | CT_ITS ---
PROCEDURE INFORMATION: Exam: CT Chest Without Contrast; Diagnostic Exam date and time: 09/09/2024 10:56 PM Age: 79 years old Clinical indication: Chest wall pain; Left side pain; Additional info: Pna TECHNIQUE: Imaging protocol: Diagnostic computed tomography of the chest without contrast. Radiation optimization: All CT scans at this facility use at least one of these dose optimization techniques: automated exposure control; mA and/or kV adjustment per patient size (includes targeted exams where dose is matched to clinical indication); or iterative reconstruction. COMPARISON: CT ANGIO CHEST 06/18/2024 11:20 AM FINDINGS: Lungs: Unremarkable. No consolidation. No masses. Pleural spaces: Unremarkable. No pneumothorax. No pleural effusion. Heart: Unremarkable. No cardiomegaly. No pericardial effusion. Coronary arteries: Moderate diffuse coronary artery calcifications. Lymph nodes: Unremarkable. No enlarged lymph nodes. Vasculature: Unremarkable. No aortic aneurysm. Bones/joints: Mild thoracic scoliosis. Mild multilevel degenerative disc changes. No vertebral body compression. No acute fracture. Soft tissues: Unremarkable. IMPRESSION: No acute abnormality. Chronic findings as noted.
--- NOTE | 2024-09-09 23:45 | PC.NURSE ---
Called [facility] for possible transfer.
[2024-09-09] MEDS: CEFTRIAXONE 1 GM 1 GM in 0.9 % SODIUM CHLORIDE 50 ML IV (23:57)
[2024-09-10] VITALS (9 sets, daily range): BP systolic 131–168; BP diastolic 73–97; PULSE 63–77; RESP 10–20; TEMP 36.1; O2SAT 94–98
[2024-09-10] MEDS: HYDROMORPHONE 2MG/ML SYRINGE 0.25 MG IV (00:42)
[2024-09-10] MEDS: ACETAMINOPHEN 500MG TAB 1000 MG PO (00:43)
--- NOTE | 2024-09-10 02:37 | PC.NURSE ---
Called [facility] for an update. Currently waiting for a bed assignment.
--- NOTE | 2024-09-10 03:04 | PC.NURSE ---
EMS has been called for transport to [facility].
== END 2024-09-10 03:36 ==
PROVIDERS: Emergency Provider Student in an Organized Health Care Education/Training Program; PCP Internal Medicine Adolescent Medicine
DX: N13.39 Other hydronephrosis (principal); R07.89 Other chest pain; R41.82 Altered mental status, unspecified; N28.9 Disorder of kidney and ureter, unspecified
CPT/HCPCS: 70450; 71045; 71250; 74176; 80053; 81001; 83880; 84484; 85025; 93005; 96365; 96375; 99285; J0696; J1171; J7120